=== PATIENT | male | born 1955 | race Caucasian/White ===

== ENCOUNTER → 2017-02-12 | Outpatient (CLI) | payer BC ==
--- NOTE | 2017-02-12 09:49 | XR ---
EXAMINATION TYPE: XR KUB DATE OF EXAM: 02/12/2017 9:38 AM COMPARISON: 02/18/2014 INDICATION: Renal stone, pain when urinating TECHNIQUE: Single view abdomen supine view FINDINGS: There is a nonspecific bowel gas pattern with small bowel gas and colonic bowel gas. No suspicious ma ss effect is evident. Psoas margins are normal. No organomegaly is present. No abnormal calcifications are identified. Renal or ureteral stones are not identified. IMPRESSION: 1. Nonspecific abdomen.
== END | disposition home or self-care (01) ==
LOC: RADXRMAIN 09:22
PROVIDERS: ATTEND Physician Assistant
DX: N20.0 Calculus of kidney (principal)
CPT/HCPCS: 74000

== ENCOUNTER 2017-02-13 19:58 | Emergency (ER) | payer BC ==
[2017-02-13 20:09] VITALS: TEMP 96.8
[2017-02-13] MEDS ORDERED: ONDANSETRON ODT 4 MG TAB PO STA (20:21)
[2017-02-13] MEDS ORDERED: KETOROLAC 30 MG/ML 1 ML VIAL IM STA (20:21)
[2017-02-13] MEDS ORDERED: MORPHINE SULFATE 4 MG/ML SYRINGE IM STA (20:21)
[2017-02-13] MEDS ORDERED: TAMSULOSIN 0.4 MG CAP.ER.24H PO STA (20:22)
--- NOTE | 2017-02-13 20:23 | ED ---
General Adult HPI - General Chief complaint: Urogenital Stated complaint: Poss Kidney Stone Time Seen by Provider: 02/13/17 20:10 Source: patient, RN notes reviewed, old records reviewed Mode of arrival: ambulatory Limitations: no limitations - History of Present Illness Initial comments: 61-year-old male with history of kidney stones presenting for painful urination. Patient states that he began having some dysuria and hematuria yesterday. He did follow-up with the urologist yesterday who did an x-ray any urine. They started on Cipro and Pyridium. States took this medicine that seemed to help until about an hour ago when he urinated he had a sharp pain in his penis. He states that he is still able to urinate. He denies any flank pain associated. He denies any nausea or vomiting. He denies any fevers or chills. He denies any abdominal pain or testicular pain. He is not taking any pain medications. - Related Data Home Medications Medication Instructions Recorded Confirmed Aspirin 325 mg PO DAILY 07/31/16 02/13/17 Clopidogrel Bisulfate [Clopidogrel] 75 mg PO DAILY 07/31/16 02/13/17 Lisinopril [Zestril] 20 mg PO DAILY 09/05/16 02/13/17 Metoprolol Tartrate [Lopressor] 50 mg PO BID 09/05/16 02/13/17 ALPRAZolam [Xanax] 0.25 mg PO HS PRN 02/13/17 02/13/17 Ciprofloxacin HCl [Cipro] 500 mg PO BID 02/13/17 02/13/17 Phenazopyridine [Pyridium] 100 mg PO TID 02/13/17 02/13/17 Vitamin B Complex 1 cap PO DAILY 02/13/17 02/13/17 Previous Rx's Medication Instructions Recorded Atorvastatin [Lipitor] 80 mg PO HS #30 tab 08/02/16 Nitroglycerin Sl Tabs [Nitrostat] 0.4 mg SUBLINGUAL Q5M PRN #20 tab 08/02/16 amLODIPine [Norvasc] 5 mg PO BID #60 tab 08/02/16 Pantoprazole [Protonix] 40 mg PO DAILY #30 tablet.dr 09/09/16 Potassium Chloride ER [K-Dur 10] 5 meq PO DAILY #30 tab.er.prt 09/09/16 HYDROcodone/APAP 5-325MG [[place] 1 tab PO Q6HR PRN #12 tab 02/13/17 5-325] Ibuprofen [Motrin] 600 mg PO Q6HR PRN #24 tab 02/13/17 Ondansetron Odt [Zofran Odt] 4 mg PO Q8HR PRN #12 tab 02/13/17 Tamsulosin HCl [Flomax] 0.4 mg PO DAILY #7 cap.er.24h 02/13/17 Allergies Allergy/AdvReac Type Severity Reaction Status Date / Time No Known Allergies Allergy Verified 02/13/17 20:54 Review of Systems ROS Statement: Those systems with pertinent positive or pertinent negative responses have been documented in the HPI. ROS Other: All systems not noted in ROS Statement are negative. Past Medical History Past Medical History: Coronary Artery Disease (CAD), Chest Pain / Angina, GERD/ Reflux, Hyperlipidemia, Hypertension, Myocardial Infarction ([place]) Additional Past Medical History / Comment(s): retinal bleed rt eye(has sx), kidney stone, 2012 fell, fx L1-NO SX BUT WEARS BRACE Last Myocardial Infarction Date:: -2010 History of Any Multi-Drug Resistant Organisms: None Reported Past Surgical History: Heart Catheterization With Stent Additional Past Surgical History / Comment(s): AGE 4-WAS CROSS EYED-HAD SX, LASER SX FOR RETIANL BLEED, VEIN STRIPPING, CARDIAC STENTS X2, LITHOTRIPSY. Past Anesthesia/Blood Transfusion Reactions: No Reported Reaction Additional Past Anesthesia/Blood Transfusion Reaction / Comment(s): CLAUSTERPHOBIA. Date of Last Stent Placement:: 2010 Past Psychological History: No Psychological Hx Reported Smoking Status: Former smoker Past Alcohol Use History: Rare Additional Past Alcohol Use History / Comment(s): SMOPKED FOR 30 YEARS 1PPD, QUIT 3-2010 Past Drug Use History: None Reported - Past Family History Mother Additional Family Medical History / Comment(s): ASHD- AGE 98 Father Family Medical History: Myocardial Infarction ([place]) Sister(s) Family Medical History: Cancer Additional Family Medical History / Comment(s): COLON/BOWEL CANCER. General Exam - General Exam Comments Initial Comments: General: Awake and Alert. No acute distress. Does not appear acutely ill. Eyes: DANELLE, EOM intact. No nystagmus. No scleral icterus. HENT: Atraumatic, normocephalic. Mucous membranes moist. Trachea midline. Neck: The neck is supple, there is no tenderness or JVD. Cardiovascular: Regular rate and rhythm. No murmur, rub, or gallop is appreciated. Distal pulses intact. Respiratory: Lungs are clear to auscultation bilaterally. No wheezes, rales, rhonchi. No respiratory distress. Gastrointestinal: Soft, Nontender. No rebound or guarding. Non-distended. No masses or organomegaly noted. No CVA tenderness. Musculoskeletal: No tenderness. Normal ROM. No gross deformity. No strength deficits. Neurological: A&Ox3. CN II-XII grossly intact, There are no obvious motor or sensory deficits. Coordination appears grossly intact. Speech is normal. Skin: Skin is warm and dry and no rashes or lesions are noted. Psychiatric: Cooperative, appropriate mood & affect, normal judgment. Limitations: no limitations Course Vital Signs 02/13/17 20:03 Temperature 96.8 F L Pulse Rate 100 Respiratory 16 Rate Blood Pressure 152/73 O2 Sat by Pulse 99 Oximetry Medical Decision Making - Medical Decision Making 61-year-old male presenting for pain in his penis and hematuria. Patient has a history of kidney stones and believes he is passing one currently. He did follow-up urology yesterday and was told this was likely the case. He did have evidence of urinary tract infection that time was started on Cipro and Pyridium. States today the pain in his penis became acutely worse. He has still been able to urinate. Physical exam is grossly unremarkable. I was able to review KUB imaging from yesterday without evidence of large stone present. UA with evidence of mild infection and hematuria consistent with stone. Given his history it is likely that he is currently passing a stone or has passed a stone through his urethra. Discussed obstruction is unlikely as the stone has passed to the urethra and his is still able to urinate. Patient is given pain medication and Flomax in the ED with significant improvement of his symptoms. Given a [place] to take home for further symptom management until he is able to fill prescriptions tomorrow. Discussed close follow-up with PCP and urology. Discussed that I will be working tomorrow and that if he has any significant issues such as inability to urinate or no improvement of pain within 24 hours to return for reevaluation tomorrow. Patient and are agreeable with plan to discharge home. - Lab Data Lab Results 02/13/17 Range/Units 20:35 Urine Color Dark Brown Urine Appearance Clear (Clear) Urine pH 6.0 (5.0-8.0) Ur Specific [place] 1.017 (1.001-1.035) Urine Protein 1+ H (Negative) Urine Glucose (UA) Negative (Negative) Urine Ketones Negative (Negative) Urine Blood Moderate H (Negative) Urine Nitrite Positive (Negative) Urine Bilirubin 1+ H (Negative) Urine Urobilinogen 4.0 (<2.0) mg/dL Ur Leukocyte Esterase Small H (Negative) Urine RBC 137 H (0-5) /hpf Urine WBC 10 H (0-5) /hpf Hyaline Casts 12 H (0-2) /lpf Urine Mucus Rare H (None) /hpf - Radiology Data Radiology results: report reviewed Disposition Clinical Impression: Urethral stone, Hematuria Disposition: HOME SELF-CARE Condition: Stable Instructions: Ureteral Stones (ED), Urinary Tract Infection in Men (ED) Additional Instructions: Please continue taking the Cipro and Phenazopyridine. Prescriptions: HYDROcodone/APAP 5-325MG [[place] 5-325] 1 tab PO Q6HR PRN #12 tab PRN Reason: Pain Ibuprofen [Motrin] 600 mg PO Q6HR PRN #24 tab PRN Reason: Pain Ondansetron Odt [Zofran Odt] 4 mg PO Q8HR PRN #12 tab PRN Reason: Nausea Tamsulosin HCl [Flomax] 0.4 mg PO DAILY #7 cap.er.24h Referrals: Renny Patel MD [Primary Care Provider] - 1-2 days Time of Disposition: 21:24
[2017-02-13 20:46] LABS: Appearance,Urine Clear (Clear); Bilirubin,Urine 1+ (Negative); Glucose,Urine (UA) Negative (Negative); Ketones,Urine Negative (Negative); Leukocyte Esterase,Urine Small (Negative); Mucus,Urine Rare /hpf; Nitrite,Urine Positive (Negative); Particle Count 5820; Protein,Urine 1+ (Negative); RBC,Urine 137 /hpf (0-5); Specific Gravity,Urine 1.017 (1.001-1.035); UA Billing (MACRO vs. MICRO) MICRO; WBC,Urine 10 /hpf (0-5)
[2017-02-13] MEDS ORDERED: HYDROcodone/APAP 5-325MG 1 EACH TAB PO STA (21:18)
[2017-02-13 21:36] VITALS: BP 115/61; PULSE 57; RESP 18
== END 2017-02-13 21:35 | disposition home or self-care (01) ==
LOC: EC 19:58
DX: N21.1 Calculus in urethra (principal); R31.9 Hematuria, unspecified; I25.10 Atherosclerotic heart disease of native coronary artery without angina pectoris; K21.9 Gastro-esophageal reflux disease without esophagitis; E78.5 Hyperlipidemia, unspecified; I10 Essential (primary) hypertension; I25.2 Old myocardial infarction; Z87.891 Personal history of nicotine dependence; Z79.82 Long term (current) use of aspirin; Z79.01 Long term (current) use of anticoagulants; Z79.899 Other long term (current) drug therapy
CPT/HCPCS: 81001; 99283; 96372 ×2; J2270; J1885

== ENCOUNTER 2017-02-20 02:42 | Emergency (ER) | payer BC ==
[2017-02-20 02:48] VITALS: TEMP 98
[2017-02-20] MEDS ORDERED: LIDOCAINE URO-JET JELLY 2% 5 ML KIT URETHRAL ONE (02:59)
--- NOTE | 2017-02-20 03:16 | ED ---
General Adult HPI - General Source: patient, family Mode of arrival: ambulatory Limitations: no limitations <Nelson Olsen - Last Filed: 02/20/17 03:14> <Chidi Boyd - Last Filed: 02/20/17 05:28> - General Chief complaint: Urogenital Stated complaint: Unable to Urinate Time Seen by Provider: 02/20/17 02:51 - History of Present Illness Initial comments: 60-year-old male patient presents emergency department today for complaints of urinary retention. Patient states he has had frequent urination of small amounts for the last day. Feels like he has never completely emptied his bladder in the last 24 hours. Patient states he was seen here on the sixth for what they believe is a kidney stone. He did follow-up with urology who has scheduled a CAT scan for him tomorrow. Patient states he is having suprapubic pressure, feels like yesterday urinate at all times, and is complaining of sharp penile pain. Patient denies any back pain, flank pain, fever, chills, abdominal pain, nausea, or vomiting. Patient states he has had hematuria throughout the last week. Patient denies any other symptoms. (Nelson Olsen) - Related Data Home Medications Medication Instructions Recorded Confirmed Aspirin 325 mg PO DAILY 07/31/16 02/20/17 Clopidogrel Bisulfate [Clopidogrel] 75 mg PO DAILY 07/31/16 02/20/17 Lisinopril [Zestril] 20 mg PO DAILY 09/05/16 02/20/17 Metoprolol Tartrate [Lopressor] 50 mg PO BID 09/05/16 02/20/17 ALPRAZolam [Xanax] 0.25 mg PO HS PRN 02/13/17 02/20/17 Ciprofloxacin HCl [Cipro] 500 mg PO BID 02/13/17 02/20/17 Phenazopyridine [Pyridium] 100 mg PO TID 02/13/17 02/20/17 Vitamin B Complex 1 cap PO DAILY 02/13/17 02/20/17 Previous Rx's Medication Instructions Recorded Atorvastatin [Lipitor] 80 mg PO HS #30 tab 08/02/16 Nitroglycerin Sl Tabs [Nitrostat] 0.4 mg SUBLINGUAL Q5M PRN #20 tab 08/02/16 amLODIPine [Norvasc] 5 mg PO BID #60 tab 08/02/16 Pantoprazole [Protonix] 40 mg PO DAILY #30 tablet.dr 09/09/16 Potassium Chloride ER [K-Dur 10] 5 meq PO DAILY #30 tab.er.prt 09/09/16 HYDROcodone/APAP 5-325MG [[place] 1 tab PO Q6HR PRN #12 tab 02/13/17 5-325] Ibuprofen [Motrin] 600 mg PO Q6HR PRN #24 tab 02/13/17 Ondansetron Odt [Zofran Odt] 4 mg PO Q8HR PRN #12 tab 02/13/17 Tamsulosin HCl [Flomax] 0.4 mg PO DAILY #7 cap.er.24h 02/13/17 Acetaminophen-Codeine 300-30mg 1 tab PO Q4H PRN #16 tablet 02/20/17 [Tylenol w/codeine #3] Allergies Allergy/AdvReac Type Severity Reaction Status Date / Time No Known Allergies Allergy Verified 02/20/17 02:48 Review of Systems ROS Other: All systems not noted in ROS Statement are negative. <Nelson Olsen - Last Filed: 02/20/17 03:14> ROS Other: All systems not noted in ROS Statement are negative. <Chidi Boyd - Last Filed: 02/20/17 05:28> ROS Statement: Those systems with pertinent positive or pertinent negative responses have been documented in the HPI. Past Medical History Past Medical History: Coronary Artery Disease (CAD), Chest Pain / Angina, GERD/ Reflux, Hyperlipidemia, Hypertension, Myocardial Infarction ([place]) Additional Past Medical History / Comment(s): retinal bleed rt eye(has sx), kidney stone, 2012 fell, fx L1-NO SX BUT WEARS BRACE Last Myocardial Infarction Date:: 3-2010 History of Any Multi-Drug Resistant Organisms: None Reported Past Surgical History: Heart Catheterization With Stent Additional Past Surgical History / Comment(s): AGE 4-WAS CROSS EYED-HAD SX, LASER SX FOR RETIANL BLEED, VEIN STRIPPING, CARDIAC STENTS X2, LITHOTRIPSY. Past Anesthesia/Blood Transfusion Reactions: No Reported Reaction Additional Past Anesthesia/Blood Transfusion Reaction / Comment(s): CLAUSTERPHOBIA. Date of Last Stent Placement:: 2010 Past Psychological History: No Psychological Hx Reported Smoking Status: Former smoker Past Alcohol Use History: Rare Additional Past Alcohol Use History / Comment(s): SMOPKED FOR 30 YEARS 1PPD, QUIT -2010 Past Drug Use History: None Reported - Past Family History Mother Additional Family Medical History / Comment(s): ASHD- AGE 98 Father Family Medical History: Myocardial Infarction ([place]) Sister(s) Family Medical History: Cancer Additional Family Medical History / Comment(s): COLON/BOWEL CANCER. <Nelson Olsen - Last Filed: 02/20/17 03:14> General Exam Limitations: no limitations General appearance: alert, in no apparent distress Respiratory exam: Present: normal lung sounds bilaterally. Absent: respiratory distress, wheezes, rales, rhonchi, stridor Cardiovascular Exam: Present: regular rate, normal rhythm, normal heart sounds. Absent: systolic murmur, diastolic murmur, rubs, gallop, clicks GI/Abdominal exam: Present: soft, normal bowel sounds. Absent: distended, tenderness, guarding, rebound, rigid Back exam: Present: normal inspection. Absent: CVA tenderness (R), CVA tenderness (L) Neurological exam: Present: alert, oriented X3, CN II-XII intact Psychiatric exam: Present: normal affect, normal mood Skin exam: Present: warm, dry, intact, normal color. Absent: rash <Nelson Olsen - Last Filed: 02/20/17 03:14> Medical Decision Making - Lab Data Result diagrams: 02/20/17 03:42 02/20/17 03:42 <Chidi Boyd - Last Filed: 02/20/17 05:28> - Lab Data Lab Results 02/20/17 02/20/17 02/20/17 Range/Units 03:42 03:42 03:51 WBC 8.5 (3.8-10.6) k/uL RBC 4.48 (4.30-5.90) m/uL Hgb 14.3 (13.0-17.5) gm/dL Hct 43.3 (39.0-53.0) % MCV 96.7 (80.0-100.0) fL MCH 31.8 (25.0-35.0) pg MCHC 32.9 (31.0-37.0) g/dL RDW 14.1 (11.5-15.5) % Plt Count 238 (150-450) k/uL Neutrophils % 60 % Lymphocytes % 24 % Monocytes % 8 % Eosinophils % 4 % Basophils % 1 % Neutrophils # 5.1 (1.3-7.7) k/uL Lymphocytes # 2.1 (1.0-4.8) k/uL Monocytes # 0.7 (0-1.0) k/uL Eosinophils # 0.4 (0-0.7) k/uL Basophils # 0.1 (0-0.2) k/uL Sodium 139 (137-145) mmol/L Potassium 4.3 (3.5-5.1) mmol/L Chloride 105 (98-107) mmol/L Carbon Dioxide 24 (22-30) mmol/L Anion Gap 10 mmol/L BUN 28 H (9-20) mg/dL Creatinine 1.30 H (0.66-1.25) mg/dL Est GFR (MDRD) Af Amer >60 (>60 ml/min/1.73 sqM) Est GFR (MDRD) Non-Af 56 (>60 ml/min/1.73 sqM) Glucose 104 H (74-99) mg/dL Calcium 9.3 (8.4-10.2) mg/dL Total Bilirubin 0.6 (0.2-1.3) mg/dL AST 23 (17-59) U/L ALT 29 (21-72) U/L Alkaline Phosphatase 67 (38-126) U/L Total Protein 6.9 (6.3-8.2) g/dL Albumin 3.9 (3.5-5.0) g/dL Urine Color Dark Brown Urine Appearance Clear (Clear) Urine pH 5.5 (5.0-8.0) Ur Specific [place] 1.019 (1.001-1.035) Urine Protein 1+ H (Negative) Urine Glucose (UA) Negative (Negative) Urine Ketones Negative (Negative) Urine Blood Large H (Negative) Urine Nitrite Negative (Negative) Urine Bilirubin Negative (Negative) Urine Urobilinogen <2.0 (<2.0) mg/dL Ur Leukocyte Esterase Small H (Negative) Urine RBC >182 H (0-5) /hpf Ur Squamous Epith Cells 1 (0-4) /hpf Disposition <Nelson Olsen - Last Filed: 02/20/17 03:14> <Chidi Boyd - Last Filed: 02/20/17 05:28> Clinical Impression: Urethral stone Disposition: HOME SELF-CARE Condition: Fair Instructions: Urinary Retention in Men (ED) Prescriptions: Acetaminophen-Codeine 300-30mg [Tylenol w/codeine #3] 1 tab PO Q4H PRN #16 tablet PRN Reason: Pain Referrals: Renny Patel MD [Primary Care Provider] - 1-2 days Braulio Brown MD [STAFF PHYSICIAN] - 1-2 days
[2017-02-20] MEDS ORDERED: ONDANSETRON 4 MG/2 ML VIAL IVP STA (03:24)
[2017-02-20] MEDS ORDERED: HYDROmorphone 1 MG/ML 1 ML SYRINGE IVP STA (03:24)
[2017-02-20 03:57] LABS: Basophils # (A) 0.1 k/uL (0-0.2); Basophils % (A) 1 %; CH 32.6; CHCM 33.8; Eosinophils # (A) 0.4 k/uL (0-0.7); Eosinophils % (A) 4 %; HCT 43.3 % (39.0-53.0); HDW 2.39; HGB 14.3 gm/dL (13.0-17.5); Luc # (Auto) 0.25; Luc % (Auto) 3; Lymphocytes # (A) 2.1 k/uL (1.0-4.8); Lymphocytes % (A) 24 %; MCH 31.8 pg (25.0-35.0); MCHC 32.9 g/dL (31.0-37.0); MCV 96.7 fL (80.0-100.0); Mean Platelet Volume 7.3; Monocytes # (A) 0.7 k/uL (0-1.0); Monocytes % (A) 8 %; Neutrophils # (A) 5.1 k/uL (1.3-7.7); Neutrophils % (A) 60 %; RBC 4.48 m/uL (4.30-5.90); RDW 14.1 % (11.5-15.5); WBC 8.5 k/uL (3.8-10.6); WBC (Perox) 8.25
[2017-02-20 04:11] LABS: ALT 29 U/L (21-72); AST 23 U/L (17-59); Alkaline Phosphatase 67 U/L (38-126); Anion Gap 10 mmol/L; Blood Urea Nitrogen 28 mg/dL (9-20); Calcium 9.3 mg/dL (8.4-10.2); Carbon Dioxide 24 mmol/L (22-30); Chloride 105 mmol/L (98-107); Glucose 104 mg/dL (74-99); Non-African American GFR(MDRD) 56 (>60 ml/min/1.73 sqM); Potassium 4.3 mmol/L (3.5-5.1); Sodium 139 mmol/L (137-145); Total Bilirubin 0.6 mg/dL (0.2-1.3); Total Protein 6.9 g/dL (6.3-8.2)
--- NOTE | 2017-02-20 04:22 | CT ---
EXAM: CT Abdomen and Pelvis Without Intravenous Contrast. CLINICAL HISTORY: Reason: Pain TECHNIQUE: Axial computed tomography images of the abdomen and pelvis without intravenous contrast. CTDI is 27.1 mGy and DLP is 1336.4 mGy-cm This CT exam was performed using one or more of the following dose reduction techniques: automated exposure control, adjustment of the mA and/or kV according to patient size, and/or use of iterative reconstruction technique. COMPARISON: CT abdomen-pelvis 09/05/2016 FINDINGS: Lower thorax: Mild left lung base and inferior lingular fibrotic scarring or subsegmental atelectasis. ABDOMEN: Liver: Liver is of normal size without focal hepatic abnormalities. Gallbladder and bile ducts: No radiopaque gallstones or pericholecystic inflammatory changes. Pancreas: Pancreas is unremarkable. No ductal dilation. Spleen: Spleen is unremarkable. Adrenals: No adrenal masses. Kidneys and ureters: No evidence of renal calculi or hydronephrosis. Probable bilateral renal cysts which are unchanged since 09/05/2016. Mild nonspecific bilateral perinephric stranding. Stomach and bowel: No evidence of bowel obstruction. Normal-appearing appendix in the right lower quadrant with no evidence of appendicitis. Scattered colonic diverticulosis without evidence of diverticulitis. Appendix: See above. PELVIS: Bladder: No urinary bladder calculi identified. Previously noted bladder calculus along left side of bladder on CT of 09/05/2016 is no longer identified. There are some prostatic calcifications. There is approximately 1.1 cm ovoid calcification projecting centrally within the inferior aspect of the prostate which was not evident on prior study of 09/05/2016 suggestive of calculus within the prostatic urethra Felix catheter balloon projects in region of posterior penile urethra below level of pubic symphysis. Reproductive: Unremarkable as visualized. ABDOMEN and PELVIS: Intraperitoneal space: Unremarkable. No free air. No significant fluid collection. Bones/joints: Moderate L1 vertebral compression fracture which appears sclerotic which is chronic and unchanged since 09/05/2016. Mild grade 1 L4-L5 anterolisthesis. Vasculature: Abdominal aortic atherosclerotic disease with no evidence of abdominal aortic aneurysm. Lymph nodes: No abnormal masses or lymphadenopathy. No abnormal fluid collections identified. IMPRESSION: Colonic diverticulosis without evidence of diverticulitis. Approximately 1.1 cm calculus projecting centrally within the lower prostate suspicious for a calculus within the prostatic urethra. Felix catheter balloon projects in region of posterior penile urethra below the level of pubic symphysis. Bony findings as described in body of report.
[2017-02-20 04:41] LABS: Appearance,Urine Clear (Clear); Bilirubin,Urine Negative (Negative); Glucose,Urine (UA) Negative (Negative); Ketones,Urine Negative (Negative); Leukocyte Esterase,Urine Small (Negative); Nitrite,Urine Negative (Negative); PH, Urine 5.5 (5.0-8.0); Particle Count 9403; Protein,Urine 1+ (Negative); RBC,Urine >182 /hpf (0-5); Specific Gravity,Urine 1.019 (1.001-1.035); Squamous Epithelial Cell,Urine 1 /hpf (0-4); UA Billing (MACRO vs. MICRO) MICRO; Urobilinogen,Urine <2.0 mg/dL (<2.0)
[2017-02-20 05:34] VITALS: BP 99/54; PULSE 88; RESP 16
== END 2017-02-20 05:34 | disposition home or self-care (01) ==
LOC: EC 02:42
DX: N20.1 Calculus of ureter (principal); R33.9 Retention of urine, unspecified; I10 Essential (primary) hypertension; Z87.891 Personal history of nicotine dependence; Z79.82 Long term (current) use of aspirin; Z79.899 Other long term (current) drug therapy
CPT/HCPCS: 99284; 51702; 96374; 96375; 36415; 80053; 85025; 81001; 87086; 74176; J2405; J1170

== ENCOUNTER → 2017-07-22 | Outpatient (CLI) | payer BC ==
--- NOTE | 2017-07-23 08:54 | CT ---
EXAMINATION TYPE: CT chest w con DATE OF EXAM: 07/22/2017 COMPARISON: CT abdomen and pelvis 02/20/2017 HISTORY: 62-year-old male Abnormal findings on xray. Pulmonary nodule. TECHNIQUE: Contiguous axial scanning of the chest after the administration of 90 mL of Omnipaque 300. Coronal/sagittal reconstructions performed. CT DLP: 597.9mGycm. Automatic exposure control utilized for a dose reduction. FINDINGS: The heart is normal size without pericardial effusion. Coronary vessel calcifications are present and are a marker for coronary artery disease. Ectasia of the ascending aorta at 3.8 cm with mild atherosclerotic arch calcifications. 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 No thoracic lymphadenopathy by CT size criteria. 5 mm anterior right midlung pulmonary nodule axial image 32. 5 mm right upper lobe pulmonary nodule axial image 26. No pleural effusion. Strandy atelectasis or scarring in the inferior lingula, stable from 02/20/2017. Tiny hiatal hernia. Visualized upper abdomen shows low attenuation of the hepatic parenchyma suggest abdiel of hepatic steatosis and a 2.5 cm cyst in the central right liver. Moderate atherosclerotic calci fications in the abdominal aorta. Bones: Bridging anterior endplate spondylosis mid to lower thoracic spine suggestive of DISH. Mild gong perior endplate compression deformity of L1 vertebral body is unchanged from 02/20/2017 compatible wit h a chronic injury. IMPRESSION: 1. CAD and pulmonary arterial hypertension. 2. Ectatic thoracic aorta. 3. A couple 5 mm right-sided pulmonary nodules. A one year follow-up CT can reassess. Stable scarring /atelectasis at the inferior lingula.
== END | disposition home or self-care (01) ==
LOC: RADCTMAIN 19:16
PROVIDERS: ATTEND Family Medicine
DX: I27.2 Other secondary pulmonary hypertension (principal); I25.10 Atherosclerotic heart disease of native coronary artery without angina pectoris; I77.810 Thoracic aortic ectasia; R91.8 Other nonspecific abnormal finding of lung field
CPT/HCPCS: 71260; Q9967

== ENCOUNTER 2018-01-06 14:29 | Emergency (ER) | payer BC ==
[2018-01-06 14:35] VITALS: RESP 18
[2018-01-06] MEDS ORDERED: SODIUM CHLORIDE 0.9% 1,000 ML with MVI, ADULT NO.4 WITH VIT K 10 ML, THIAMINE 100 MG, F... IV ONE ×4 (15:01)
[2018-01-06 15:28] LABS: Basophils # (A) 0.1 k/uL (0-0.2); Basophils % (A) 1 %; Eosinophils # (A) 0.1 k/uL (0-0.7); Eosinophils % (A) 1 %; HCT 43.9 % (39.0-53.0); HGB 14.6 gm/dL (13.0-17.5); Lymphocytes # (A) 1.8 k/uL (1.0-4.8); Lymphocytes % (A) 21 %; MCH 33.8 pg (25.0-35.0); MCHC 33.3 g/dL (31.0-37.0); MCV 101.5 fL (80.0-100.0); Macrocytosis Slight; Mean Platelet Volume 7.7; Monocytes # (A) 0.6 k/uL (0-1.0); Monocytes % (A) 7 %; Neutrophils # (A) 5.8 k/uL (1.3-7.7); Neutrophils % (A) 69 %; Platelet Count 167 k/uL (150-450); RBC 4.32 m/uL (4.30-5.90); RDW 13.2 % (11.5-15.5); WBC 8.5 k/uL (3.8-10.6)
[2018-01-06 15:40] LABS: ALT 81 U/L (21-72); AST 129 U/L (17-59); Alkaline Phosphatase 66 U/L (38-126); Anion Gap 26 mmol/L; Blood Urea Nitrogen 24 mg/dL (9-20); Calcium 8.7 mg/dL (8.4-10.2); Carbon Dioxide 13 mmol/L (22-30); Chloride 106 mmol/L (98-107); Glucose 69 mg/dL (74-99); Magnesium 1.3 mg/dL (1.6-2.3); Potassium 4.3 mmol/L (3.5-5.1); Sodium 145 mmol/L (137-145); Total Bilirubin 0.4 mg/dL (0.2-1.3); Total Protein 6.9 g/dL (6.3-8.2)
[2018-01-06] MEDS ORDERED: SODIUM CHLORIDE 0.9% 1,000 ML IV ONE (16:07)
[2018-01-06] MEDS ORDERED: MAGNESIUM SULFATE-D5W PMX 1 GM in DEXTROSE/WATER 1 100ML.BAG IVPB ONE (16:08)
--- NOTE | 2018-01-06 16:36 | ED ---
General Adult HPI - General Chief complaint: Alcohol Stated complaint: Etoh Time Seen by Provider: 01/06/18 14:30 Source: patient, RN notes reviewed Mode of arrival: ambulatory Limitations: no limitations - History of Present Illness Initial comments: This is a 62-year-old male who presents emergency Department complaining of wanting to detox off of alcohol. Patient states he has no physical complaints today he has no suicidal homicidal ideations. Patient denies any fevers chills cough. Patient denies any chest pain difficult breathing shortest breath. Patient states he is only here to see if he can be detoxed off alcohol. Patient states he stopped drinking approximately 2 hours ago he had no symptoms of withdrawal yet. Patient denies any headache patient denies numbness weakness. - Related Data Home Medications Medication Instructions Recorded Confirmed Aspirin 325 mg PO DAILY 07/31/16 01/06/18 Metoprolol Tartrate [Lopressor] 50 mg PO BID 09/05/16 01/06/18 Phenazopyridine [Pyridium] 100 mg PO TID 02/13/17 01/06/18 Albuterol Inhaler [Ventolin Hfa 1 puff INHALATION RT-Q4H PRN 01/06/18 01/06/18 Inhaler] Lisinopril 40 mg PO DAILY 01/06/18 01/06/18 Tadalafil [Cialis] 10 mg PO DAILY PRN 01/06/18 01/06/18 Thiamine [Vitamin B-1] 100 mg PO BID 01/06/18 01/06/18 amLODIPine [Norvasc] 10 mg PO DAILY 01/06/18 01/06/18 Previous Rx's Medication Instructions Recorded Atorvastatin [Lipitor] 80 mg PO HS #30 tab 08/02/16 Nitroglycerin Sl Tabs [Nitrostat] 0.4 mg SUBLINGUAL Q5M PRN #20 tab 08/02/16 Pantoprazole [Protonix] 40 mg PO DAILY #30 tablet. 09/09/16 Potassium Chloride ER [K-Dur 10] 5 meq PO DAILY #30 tab.er.prt 09/09/16 HYDROcodone/APAP 5-325MG [[place] 1 tab PO Q6HR PRN #12 tab 02/13/17 5-325] Ibuprofen [Motrin] 600 mg PO Q6HR PRN #24 tab 02/13/17 Diazepam [Valium] 10 mg PO Q6H #2 tablet 01/06/18 Allergies Allergy/AdvReac Type Severity Reaction Status Date / Time No Known Allergies Allergy Verified 01/06/18 15:08 Review of Systems ROS Statement: Those systems with pertinent positive or pertinent negative responses have been documented in the HPI. ROS Other: All systems not noted in ROS Statement are negative. Past Medical History Past Medical History: Coronary Artery Disease (CAD), Chest Pain / Angina, GERD/ Reflux, Hyperlipidemia, Hypertension, Myocardial Infarction ([place]) Additional Past Medical History / Comment(s): retinal bleed rt eye(has sx), kidney stone, 2012 fell, fx L1-NO SX BUT WEARS BRACE Last Myocardial Infarction Date:: History of Any Multi-Drug Resistant Organisms: None Reported Past Surgical History: Heart Catheterization With Stent Additional Past Surgical History / Comment(s): AGE 4-WAS CROSS EYED-HAD SX, LASER SX FOR RETIANL BLEED, VEIN STRIPPING, CARDIAC STENTS X2, LITHOTRIPSY. Past Anesthesia/Blood Transfusion Reactions: No Reported Reaction Additional Past Anesthesia/Blood Transfusion Reaction / Comment(s): CLAUSTERPHOBIA. Date of Last Stent Placement:: 2010 Past Psychological History: No Psychological Hx Reported Smoking Status: Former smoker Past Alcohol Use History: Heavy, Rare Past Drug Use History: None Reported - Past Family History Mother Additional Family Medical History / Comment(s): ASHD- AGE 98 Father Family Medical History: Myocardial Infarction ([place]) Sister(s) Family Medical History: Cancer Additional Family Medical History / Comment(s): COLON/BOWEL CANCER. General Exam - General Exam Comments Initial Comments: GENERAL: Patient is well-developed and well-nourished. Patient is nontoxic and well- hydrated and is in no acute distress. Patient does appear intoxicated. ENT: Neck is soft and supple. No significant lymphadenopathy is noted. Oropharynx is clear. Moist mucous membranes. Neck has full range of motion without eliciting any pain. EYES: The sclera were anicteric and conjunctiva were pink and moist. Extraocular movements were intact and pupils were equal round and reactive to light. Eyelids were unremarkable. PULMONARY: Unlabored respirations. Good breath sounds bilaterally. No audible rales rhonchi or wheezing was noted. CARDIOVASCULAR: There is a regular rate and rhythm without any murmurs gallops or rubs. ABDOMEN: Soft and nontender with normal bowel sounds. SKIN: Skin is clear with no lesions or rashes and otherwise unremarkable. NEUROLOGIC: Patient is alert and oriented x3. Cranial nerves II through XII are grossly intact. Motor and sensory are also intact. Normal speech, volume and content. Symmetrical smile. MUSCULOSKELETAL: Normal extremities with adequate strength and full range of motion. LYMPHATICS: No significant lymphadenopathy is noted PSYCHIATRIC: Normal psychiatric evaluation. Normal interpersonal interactions appears functionally intact in deals appropriately with others. Limitations: no limitations Course Vital Signs 01/06/18 01/06/18 14:31 15:15 Temperature 98.0 F Pulse Rate 111 H 79 Respiratory 18 18 Rate Blood Pressure 156/80 128/74 O2 Sat by Pulse 99 99 Oximetry Medical Decision Making - Medical Decision Making Patient stated he was going to go to rehab facility and the daughter was here to take him. - Lab Data Result diagrams: 01/06/18 15:15 01/06/18 15:15 Lab Results 01/06/18 01/06/18 Range/Units 15:15 15:15 WBC 8.5 (3.8-10.6) k/uL RBC 4.32 (4.30-5.90) m/uL Hgb 14.6 (13.0-17.5) gm/dL Hct 43.9 (39.0-53.0) % MCV 101.5 H (80.0-100.0) fL MCH 33.8 (25.0-35.0) pg MCHC 33.3 (31.0-37.0) g/dL RDW 13.2 (11.5-15.5) % Plt Count 167 (150-450) k/uL Neutrophils % 69 % Lymphocytes % 21 % Monocytes % 7 % Eosinophils % 1 % Basophils % 1 % Neutrophils # 5.8 (1.3-7.7) k/uL Lymphocytes # 1.8 (1.0-4.8) k/uL Monocytes # 0.6 (0-1.0) k/uL Eosinophils # 0.1 (0-0.7) k/uL Basophils # 0.1 (0-0.2) k/uL Macrocytosis Slight Sodium 145 (137-145) mmol/L Potassium 4.3 (3.5-5.1) mmol/L Chloride 106 (98-107) mmol/L Carbon Dioxide 13 L (22-30) mmol/L Anion Gap 26 mmol/L BUN 24 H (9-20) mg/dL Creatinine 1.20 (0.66-1.25) mg/dL Est GFR (MDRD) Af Amer >60 (>60 ml/min/1.73 sqM) Est GFR (MDRD) Non-Af >60 (>60 ml/min/1.73 sqM) Glucose 69 L (74-99) mg/dL Calcium 8.7 (8.4-10.2) mg/dL Magnesium 1.3 L (1.6-2.3) mg/dL Total Bilirubin 0.4 (0.2-1.3) mg/dL AST 129 H (17-59) U/L ALT 81 H (21-72) U/L Alkaline Phosphatase 66 (38-126) U/L Total Protein 6.9 (6.3-8.2) g/dL Albumin 4.0 (3.5-5.0) g/dL Disposition Clinical Impression: Alcohol abuse, Hypomagnesemia Disposition: HOME SELF-CARE Condition: Good Instructions: Abuse of Alcohol (ED) Additional Instructions: Patient is to follow-up with her rehab facility as soon as possible Prescriptions: Diazepam [Valium] 10 mg PO Q6H #2 tablet Referrals: Renny Patel MD [Primary Care Provider] - 1-2 days Time of Disposition: 17:48
[2018-01-06] MEDS ORDERED: LORazepam 2 MG/ML INJ IV STA (16:37)
[2018-01-06] MEDS ORDERED: DIAZEPAM 5 MG TAB PO STA (18:04)
[2018-01-06 18:14] VITALS: BP 144/78; PULSE 78; TEMP 98
== END 2018-01-06 18:14 | disposition home or self-care (01) ==
LOC: EC 14:29
DX: F10.10 Alcohol abuse, uncomplicated (principal); E83.42 Hypomagnesemia; I25.10 Atherosclerotic heart disease of native coronary artery without angina pectoris; I10 Essential (primary) hypertension; I25.2 Old myocardial infarction; Z87.891 Personal history of nicotine dependence; Z79.82 Long term (current) use of aspirin; Z79.899 Other long term (current) drug therapy
CPT/HCPCS: 36415; 80053; 83735; 85025; 99284; 96365; 96366; 96368; 96375; J2060; J3411; J3475

== ENCOUNTER 2018-01-08 10:08 | Emergency (ER) | payer BC ==
[2018-01-08 10:16] VITALS: RESP 18
--- NOTE | 2018-01-08 10:34 | ED ---
General Adult HPI - General Chief complaint: Skin/Abscess/Foreign Body Stated complaint: Facial swelling Time Seen by Provider: 01/08/18 10:20 Source: patient, RN notes reviewed Mode of arrival: ambulatory - History of Present Illness Initial comments: 62-year-old male presents to the emergency department with a chief complaint of left-sided facial swelling and blood in the urine. He is recently started on new medication yesterday to help with alcohol symptoms. He woke up this morning with left-sided facial swelling. No pain no tenderness to touch. She denies any dental pain. He denies any fever or chills. Denies any redness to the area. He states that he also noticed some blood in the urine. He states there is no pain with urination no dysuria. They were concerned due to the continued swelling in the new medication so they thought that they should be evaluated. The patient is otherwise having no symptoms. He states that he has not drank for the past few days. Patient denies any recent fever, chills, shortness of breath, chest pain, back pain, abdominal pain, nausea vomiting, numbness or tingling, dysuria , constipation or diarrhea, headaches or visual changes, or any other current symptoms. - Related Data Home Medications Medication Instructions Recorded Confirmed Aspirin 325 mg PO DAILY 07/31/16 01/08/18 Metoprolol Tartrate [Lopressor] 50 mg PO BID 09/05/16 01/08/18 Phenazopyridine [Pyridium] 100 mg PO TID 02/13/17 01/08/18 Albuterol Inhaler [Ventolin Hfa 1 puff INHALATION RT-Q4H PRN 01/06/18 01/08/18 Inhaler] Lisinopril 40 mg PO DAILY 01/06/18 01/08/18 Tadalafil [Cialis] 10 mg PO DAILY PRN 01/06/18 01/08/18 Thiamine [Vitamin B-1] 100 mg PO BID 01/06/18 01/08/18 amLODIPine [Norvasc] 10 mg PO DAILY 01/06/18 01/08/18 chlordiazePOXIDE HCL 25 mg PO DIRECTED 01/08/18 01/08/18 Previous Rx's Medication Instructions Recorded Atorvastatin [Lipitor] 80 mg PO HS #30 tab 08/02/16 Nitroglycerin Sl Tabs [Nitrostat] 0.4 mg SUBLINGUAL Q5M PRN #20 tab 08/02/16 Pantoprazole [Protonix] 40 mg PO DAILY #30 tablet.dr 09/09/16 Potassium Chloride ER [K-Dur 10] 5 meq PO DAILY #30 tab.er.prt 09/09/16 HYDROcodone/APAP 5-325MG [[place] 1 tab PO Q6HR PRN #12 tab 02/13/17 5-325] Ibuprofen [Motrin] 600 mg PO Q6HR PRN #24 tab 02/13/17 Diazepam [Valium] 10 mg PO Q6H #2 tablet 01/06/18 Penicillin V Potassium [Pen Vee K] 500 mg PO QID 7 Days tablet 01/08/18 predniSONE 50 mg PO DAILY #5 tab 01/08/18 Allergies Allergy/AdvReac Type Severity Reaction Status Date / Time No Known Allergies Allergy Verified 01/08/18 10:41 Review of Systems ROS Statement: Those systems with pertinent positive or pertinent negative responses have been documented in the HPI. ROS Other: All systems not noted in ROS Statement are negative. Past Medical History Past Medical History: Coronary Artery Disease (CAD), Chest Pain / Angina, GERD/ Reflux, Hyperlipidemia, Hypertension, Myocardial Infarction ([place]) Additional Past Medical History / Comment(s): retinal bleed rt eye(has sx), kidney stone, 2012 fell, fx L1-NO SX BUT WEARS BRACE Last Myocardial Infarction Date:: History of Any Multi-Drug Resistant Organisms: None Reported Past Surgical History: Heart Catheterization With Stent Additional Past Surgical History / Comment(s): AGE 4-WAS CROSS EYED-HAD SX, LASER SX FOR RETIANL BLEED, VEIN STRIPPING, CARDIAC STENTS X2, LITHOTRIPSY. Past Anesthesia/Blood Transfusion Reactions: No Reported Reaction Additional Past Anesthesia/Blood Transfusion Reaction / Comment(s): CLAUSTERPHOBIA. Date of Last Stent Placement:: 2010 Past Psychological History: No Psychological Hx Reported Smoking Status: Former smoker Past Alcohol Use History: Heavy, Rare Past Drug Use History: None Reported - Past Family History Mother Additional Family Medical History / Comment(s): ASHD- AGE 98 Father Family Medical History: Myocardial Infarction ([place]) Sister(s) Family Medical History: Cancer Additional Family Medical History / Comment(s): COLON/BOWEL CANCER. General Exam - General Exam Comments Initial Comments: General: The patient is awake and alert, in no distress, and does not appear acutely ill. Head: Swelling to the left cheek area. Eye: Pupils are equal, round and reactive to light, extra-ocular movements are intact; there is normal conjunctiva bilaterally. No signs of icterus. Ears, nose, mouth and throat: There are moist mucous membranes and no oral lesions. Neck: The neck is supple, there is no tenderness. Cardiovascular: There is a regular rate and rhythm. No murmur, rub or gallop is appreciated. Respiratory: Lungs are clear to auscultation, respirations are non-labored, breath sounds are equal. No wheezes, stridor, rales, or rhonchi. Gastrointestinal: Soft, non-distended, non-tender abdomen without masses or organomegaly noted. There is no rebound or guarding present. No CVA tenderness. Bowel sounds are unremarkable. Back: There is no tenderness to palpation in the midline. There is no obvious deformity. No rashes noted. Musculoskeletal: Normal ROM, no tenderness, There is no pedal edema. There is no calf tenderness or swelling. Sensation intact. Pulses equal bilaterally 2+. Neurological: CN II-XII intact, There are no obvious motor or sensory deficits. Coordination appears grossly intact. Speech is normal. Skin: Skin is warm and dry and no rashes or lesions are noted. Psychiatric: Cooperative, appropriate mood & affect, normal judgment. Course Vital Signs 01/08/18 10:13 Temperature 98.2 F Pulse Rate 87 Respiratory 18 Rate Blood Pressure 180/97 O2 Sat by Pulse 99 Oximetry Medical Decision Making - Medical Decision Making 62-year-old male presents for facial swelling and hematuria. At this time patient does not appear to have blood in the urine there is some bilirubin which we informed that he needs to follow up with his doctor about this. We discussed the facial swelling could be due to dental however he does not have this time we could be ALLERGIC reaction. He did started her medication but we did discuss other things at [facility] reaction. We will start him on steroids to help with the swelling. We discussed using Benadryl. We discussed return parameters and follow-up and all questions. Patient and family stated they understood and management this plan. All questions have been answered. They will be discharged. - Lab Data Result diagrams: 01/08/18 11:24 01/08/18 11:24 Lab Results 01/08/18 01/08/18 01/08/18 Range/Units 11:24 11:24 11:24 WBC 5.1 (3.8-10.6) k/uL RBC 4.47 (4.30-5.90) m/uL Hgb 15.0 (13.0-17.5) gm/dL Hct 44.5 (39.0-53.0) % MCV 99.4 (80.0-100.0) fL MCH 33.6 (25.0-35.0) pg MCHC 33.8 (31.0-37.0) g/dL RDW 13.1 (11.5-15.5) % Plt Count 130 L (150-450) k/uL Neutrophils % 68 % Lymphocytes % 17 % Monocytes % 7 % Eosinophils % 6 % Basophils % 1 % Neutrophils # 3.5 (1.3-7.7) k/uL Lymphocytes # 0.9 L (1.0-4.8) k/uL Monocytes # 0.3 (0-1.0) k/uL Eosinophils # 0.3 (0-0.7) k/uL Basophils # 0.0 (0-0.2) k/uL Sodium 139 (137-145) mmol/L Potassium 4.3 (3.5-5.1) mmol/L Chloride 101 (98-107) mmol/L Carbon Dioxide 26 (22-30) mmol/L Anion Gap 12 mmol/L BUN 19 (9-20) mg/dL Creatinine 0.95 (0.66-1.25) mg/dL Est GFR (MDRD) Af Amer >60 (>60 ml/min/1.73 sqM) Est GFR (MDRD) Non-Af >60 (>60 ml/min/1.73 sqM) Glucose 91 (74-99) mg/dL Calcium 8.8 (8.4-10.2) mg/dL Total Bilirubin 1.1 (0.2-1.3) mg/dL AST 122 H (17-59) U/L ALT 74 H (21-72) U/L Alkaline Phosphatase 64 (38-126) U/L Total Protein 6.7 (6.3-8.2) g/dL Albumin 3.7 (3.5-5.0) g/dL Urine Color Yellow Urine Appearance Clear (Clear) Urine pH 6.0 (5.0-8.0) Ur Specific [place] 1.020 (1.001-1.035) Urine Protein 2+ H (Negative) Urine Glucose (UA) Negative (Negative) Urine Blood Negative (Negative) Urine Nitrite Negative (Negative) Urine Bilirubin 1+ H (Negative) Urine Urobilinogen 3.0 (<2.0) mg/dL Ur Leukocyte Esterase Negative (Negative) Urine WBC 1 (0-5) /hpf Urine Mucus Rare H (None) /hpf Disposition Clinical Impression: Facial swelling, Bilirubinuria, Allergic reaction Disposition: HOME SELF-CARE Condition: Stable Instructions: Allergies (ED) Additional Instructions: Please use medication as discussed. Please follow up with family doctor if symptoms have not improved over the next two days. Please return to the emergency room if your symptoms increase or worsen or for any other concerns. Prescriptions: Penicillin V Potassium [Pen Vee K] 500 mg PO QID 7 Days tablet predniSONE 50 mg PO DAILY #5 tab Referrals: Renny Patel MD [Primary Care Provider] - 1-2 days Time of Disposition: 12:13
[2018-01-08 11:40] LABS: Basophils % (A) 1 %; Eosinophils # (A) 0.3 k/uL (0-0.7); Eosinophils % (A) 6 %; HCT 44.5 % (39.0-53.0); Lymphocytes # (A) 0.9 k/uL (1.0-4.8); Lymphocytes % (A) 17 %; MCH 33.6 pg (25.0-35.0); MCHC 33.8 g/dL (31.0-37.0); MCV 99.4 fL (80.0-100.0); Mean Platelet Volume 8.1; Monocytes # (A) 0.3 k/uL (0-1.0); Monocytes % (A) 7 %; Neutrophils # (A) 3.5 k/uL (1.3-7.7); Neutrophils % (A) 68 %; Platelet Count 130 k/uL (150-450); RBC 4.47 m/uL (4.30-5.90); RDW 13.1 % (11.5-15.5); WBC 5.1 k/uL (3.8-10.6)
[2018-01-08 11:51] LABS: ALT 74 U/L (21-72); AST 122 U/L (17-59); Albumin 3.7 g/dL (3.5-5.0); Alkaline Phosphatase 64 U/L (38-126); Anion Gap 12 mmol/L; Blood Urea Nitrogen 19 mg/dL (9-20); Calcium 8.8 mg/dL (8.4-10.2); Carbon Dioxide 26 mmol/L (22-30); Chloride 101 mmol/L (98-107); Glucose 91 mg/dL (74-99); Potassium 4.3 mmol/L (3.5-5.1); Sodium 139 mmol/L (137-145); Total Bilirubin 1.1 mg/dL (0.2-1.3); Total Protein 6.7 g/dL (6.3-8.2)
[2018-01-08 11:52] LABS: Appearance,Urine Clear (Clear); Bilirubin,Urine 1+ (Negative); Blood,Urine Negative (Negative); Color,Urine Yellow; Glucose,Urine (UA) Negative (Negative); Ketones,Urine 2+ (Negative); Leukocyte Esterase,Urine Negative (Negative); Mucus,Urine Rare /hpf; Protein,Urine 2+ (Negative); WBC,Urine 1 /hpf (0-5)
[2018-01-08] MEDS ORDERED: methylPREDNISolone SOD SUCCI 125 MG/2 ML VIAL IV STA (12:10)
[2018-01-08 12:53] VITALS: BP 168/98; PULSE 85; TEMP 98
== END 2018-01-08 12:40 | disposition home or self-care (01) ==
LOC: EC 10:08
DX: T78.40XA Allergy, unspecified, initial encounter (principal); R82.2 Biliuria; R22.0 Localized swelling, mass and lump, head; I25.10 Atherosclerotic heart disease of native coronary artery without angina pectoris; I10 Essential (primary) hypertension; I25.2 Old myocardial infarction; Z95.5 Presence of coronary angioplasty implant and graft; Z87.891 Personal history of nicotine dependence; Z79.82 Long term (current) use of aspirin; Z79.899 Other long term (current) drug therapy
CPT/HCPCS: 36415; 80053; 85025; 81001; 87086; 99283; 96374; J2930

== ENCOUNTER 2018-04-15 13:04 | Emergency (ER) | payer BC ==
--- NOTE | 2018-04-15 13:42 | ED ---
General Adult HPI - General Chief complaint: Alcohol Stated complaint: Detox Time Seen by Provider: 04/15/18 13:22 Source: patient, RN notes reviewed Mode of arrival: ambulatory Limitations: no limitations - History of Present Illness Initial comments: Patient 62-year-old male presented to the emergency room today with chief complaint of wanting to detox from alcohol. Patient does admit that he recently began drinking again just 3 days ago. States he was drinking whiskey. Patient states last drink was approximately 3 hours ago. Patient is here with friends. Patient states he wants help to get clean again. He states has no intentions of hurting himself or others. He states he did have absolute vomiting this morning but is not feeling nauseous at this time. Patient denies any pain. He denies any other complaints or symptoms. Patient denies any recent fever, chills, shortness of breath, chest pain, back pain, abdominal pain , numbness or tingling, dysuria or hematuria, constipation or diarrhea, headaches or visual changes, or any other complaints. - Related Data Home Medications Medication Instructions Recorded Confirmed Aspirin 325 mg PO DAILY 07/31/16 04/15/18 Metoprolol Tartrate [Lopressor] 50 mg PO BID 09/05/16 04/15/18 Thiamine [Vitamin B-1] 100 mg PO BID 01/06/18 04/15/18 Clopidogrel [Plavix] 75 mg PO DAILY 04/15/18 04/15/18 Lisinopril [Zestril] 20 mg PO BID 04/15/18 04/15/18 amLODIPine [Norvasc] 5 mg PO BID 04/15/18 04/15/18 Previous Rx's Medication Instructions Recorded Atorvastatin [Lipitor] 80 mg PO HS #30 tab 08/02/16 Pantoprazole [Protonix] 40 mg PO DAILY #30 tablet.dr 09/09/16 Potassium Chloride ER [K-Dur 10] 5 meq PO DAILY #30 tab.er.prt 09/09/16 Ondansetron Odt [Zofran ODT] 4 mg PO Q8HR PRN #20 tab 04/15/18 chlordiazePOXIDE HCl [Librium] 25 mg PO DIRECTED #22 capsule 04/15/18 cloNIDine HCL [Catapres] 0.1 mg PO BID #6 tab 04/15/18 Allergies Allergy/AdvReac Type Severity Reaction Status Date / Time No Known Allergies Allergy Verified 04/15/18 13:34 Review of Systems ROS Statement: Those systems with pertinent positive or pertinent negative responses have been documented in the HPI. ROS Other: All systems not noted in ROS Statement are negative. Past Medical History Past Medical History: Coronary Artery Disease (CAD), Chest Pain / Angina, GERD/ Reflux, Hyperlipidemia, Hypertension, Myocardial Infarction ([place]) Additional Past Medical History / Comment(s): retinal bleed rt eye(has sx), kidney stone, 2012 fell, fx L1-NO SX BUT WEARS BRACE Last Myocardial Infarction Date:: History of Any Multi-Drug Resistant Organisms: None Reported Past Surgical History: Heart Catheterization With Stent Additional Past Surgical History / Comment(s): AGE 4-WAS CROSS EYED-HAD SX, LASER SX FOR RETIANL BLEED, VEIN STRIPPING, CARDIAC STENTS X2, LITHOTRIPSY. Past Anesthesia/Blood Transfusion Reactions: No Reported Reaction Additional Past Anesthesia/Blood Transfusion Reaction / Comment(s): CLAUSTERPHOBIA. Date of Last Stent Placement:: 2010 Past Psychological History: No Psychological Hx Reported Smoking Status: Former smoker Past Alcohol Use History: Abuse, Daily, Heavy Past Drug Use History: None Reported - Past Family History Mother Additional Family Medical History / Comment(s): ASHD- AGE 98 Father Family Medical History: Myocardial Infarction ([place]) Sister(s) Family Medical History: Cancer Additional Family Medical History / Comment(s): COLON/BOWEL CANCER. General Exam - General Exam Comments Initial Comments: General: The patient is awake and alert, in no distress, and does not appear acutely ill. Eye: Pupils are equal, round and reactive to light, extra-ocular movements are intact. No nystagmus. There is normal conjunctiva bilaterally. No signs of icterus. Ears, nose, mouth and throat: There are moist mucous membranes and no oral lesions. Neck: The neck is supple, there is no tenderness or JVD. Cardiovascular: There is a regular rate and rhythm. No murmur, rub or gallop is appreciated. Respiratory: Lungs are clear to auscultation, respirations are non-labored, breath sounds are equal. No wheezes, stridor, rales, or rhonchi. Gastrointestinal: Soft, non-distended, non-tender abdomen without masses or organomegaly noted. There is no rebound or guarding present. No CVA tenderness. Bowel sounds are unremarkable. Musculoskeletal: Normal ROM, no tenderness. Strength 5/5. Sensation intact. Pulses equal bilaterally 2+. Neurological: A&O x 3. CN II-XII intact, There are no obvious motor or sensory deficits. Coordination appears grossly intact. Speech is normal. Skin: Skin is warm and dry and no rashes or lesions are noted. Psychiatric: Cooperative, appropriate mood & affect, normal judgment. Limitations: no limitations Course Vital Signs 04/15/18 13:17 Temperature 98.2 F Pulse Rate 88 Respiratory 18 Rate Blood Pressure 104/67 O2 Sat by Pulse 100 Oximetry Medical Decision Making - Medical Decision Making Patient 62 emergency room show no signs of distress. He is resting comfortably. Patient will be given medications of clonidine, Librium, Zofran for withdrawal symptoms advised to follow-up with detox programs. Patient is advised to increase oral fluids. Advised that clonidine a drop his blood pressure. Advised to continue to monitor blood pressure closely and not taken her blood pressure is low.. Patient states understanding and is in agreement with this plan. Disposition Clinical Impression: ETOH abuse Disposition: HOME SELF-CARE Condition: Good Instructions: Alcohol Withdrawal (ED) Prescriptions: chlordiazePOXIDE HCl [Librium] 25 mg PO DIRECTED #22 capsule cloNIDine HCL [Catapres] 0.1 mg PO BID #6 tab Ondansetron Odt [Zofran ODT] 4 mg PO Q8HR PRN #20 tab PRN Reason: Nausea Is patient prescribed a controlled substance at d/c from ED?: No Referrals: Renny Patel MD [Primary Care Provider] - 1-2 days Time of Disposition: 13:37
[2018-04-15 14:25] VITALS: BP 112/56; PULSE 73; RESP 16; TEMP 96.9
== END 2018-04-15 14:30 | disposition home or self-care (01) ==
LOC: EC 13:04
DX: F10.10 Alcohol abuse, uncomplicated (principal); I25.119 Atherosclerotic heart disease of native coronary artery with unspecified angina pectoris; I10 Essential (primary) hypertension; I25.2 Old myocardial infarction; Z87.891 Personal history of nicotine dependence; Z79.01 Long term (current) use of anticoagulants; Z79.82 Long term (current) use of aspirin; Z79.899 Other long term (current) drug therapy; Z95.5 Presence of coronary angioplasty implant and graft
CPT/HCPCS: 99283

== ENCOUNTER → 2018-06-09 | Outpatient (CLI) | payer BC, MEDICARE ==
[2018-06-09 15:28] LABS: Basophils # (A) 0.1 k/uL (0-0.2); Basophils % (A) 1 %; Eosinophils # (A) 0.1 k/uL (0-0.7); Eosinophils % (A) 1 %; HCT 45.3 % (39.0-53.0); HGB 14.9 gm/dL (13.0-17.5); Lymphocytes # (A) 2.3 k/uL (1.0-4.8); Lymphocytes % (A) 24 %; MCH 30.7 pg (25.0-35.0); MCV 93.1 fL (80.0-100.0); Mean Platelet Volume 7.2; Monocytes # (A) 0.5 k/uL (0-1.0); Monocytes % (A) 5 %; Neutrophils # (A) 6.2 k/uL (1.3-7.7); Neutrophils % (A) 67 %; Platelet Count 285 k/uL (150-450); RBC 4.86 m/uL (4.30-5.90); RDW 13.6 % (11.5-15.5); WBC 9.3 k/uL (3.8-10.6)
[2018-06-09 15:39] LABS: Calcium 9.5 mg/dL (8.4-10.2); Potassium 4.6 mmol/L (3.5-5.1); Total Bilirubin 0.5 mg/dL (0.2-1.3); Total Protein 6.6 g/dL (6.3-8.2)
== END | disposition home or self-care (01) ==
LOC: LABWHC1 14:27
PROVIDERS: ATTEND Family Medicine
DX: E78.5 Hyperlipidemia, unspecified (principal); I10 Essential (primary) hypertension; Z79.899 Other long term (current) drug therapy
CPT/HCPCS: 36415; 80053; 85025

== ENCOUNTER → 2018-07-10 | Outpatient (CLI) | payer MEDICARE, BC ==
--- NOTE | 2018-07-10 15:21 | US ---
EXAMINATION TYPE: US kidneys/renal and bladder DATE OF EXAM: 07/10/2018 COMPARISON: CT CLINICAL HISTORY: 63-year-old male R35.0 Frequency of micturition TECHNIQUE: Multiple sonographic images of the kidneys and bladder are obtained. FINDINGS: EXAM MEASUREMENTS: Right Kidney: 10.8 x 5.1 x 5.4 cm Left Kidney: 11.8 x 6.1 x 5.3 cm Right Kidney: No hydronephrosis. There is a central simple cyst visualized measuring 2.4 x 2.2 x 2.5 cm Left Kidney: No hydronephrosis. Poor distention of the bladder limits its evaluation. IMPRESSION: No hydronephrosis. A 2.5 cm simple cyst incidentally seen in the central right kidney.
== END | disposition home or self-care (01) ==
LOC: RADUSWWP 10:45
PROVIDERS: ATTEND Family Medicine
DX: N28.1 Cyst of kidney, acquired (principal)
CPT/HCPCS: 76770

== ENCOUNTER → 2019-08-24 | Outpatient (CLI) | payer MEDICARE, BC ==
--- NOTE | 2019-08-24 20:56 | CTL ---
EXAMINATION TYPE: CT Low Dose Lung DATE OF EXAM ORDERED: 08/24/2019 HISTORY: Personal history tobacco use. Lung cancer screening CT DLP: 137.[address] CTDI: 3.8 mGy Automated exposure control for dose reduction was used. SCREENING VISIT: COMPARISON: CT chest 07/22/2017 TECHNIQUE: Low dose computed tomography scan was performed through the chest at 1 mm thick sections a nd reconstructed images in the coronal plane at [address] DIAGNOSTIC QUALITY: Satisfactory FINDINGS: LUNG NODULES: Small subpleural right upper lobe nodule, right middle lobe nodule are stable. No addit ional lung nodules are evident. LUNGS: COPD: Severity: Mild Fibrosis: Severity: None Lymph nodes: None Other findings: No RIGHT PLEURAL SPACE: Effusion: None Calcification: None Thickening: None Pneumothorax: Not present LEFT PLEURAL SPACE: Effusion: None Calcification: None Thickening: None Pneumothorax: Not present HEART: Heart Size: Small Coronary calcification: Three-vessel marked calcification Pericardial effusion: None OTHER FINDINGS: Upper abdomen: There is a small hiatal hernia. Bony thorax: There is multilevel thoracic spondylosis, anterior flowing osteophytes with preservation of disc space, consider diffuse idiopathic skeletal hyperostosis Supraclavicular region: Unremarkable Other: Pulmonary artery somewhat prominent, correlate for pulmonary artery hypertension IMPRESSION: Benign FOLLOW UP CT CHEST RECOMMENDATION: [address] LUNG RAD: 2
== END | disposition home or self-care (01) ==
LOC: RADCTMAIN 16:05
PROVIDERS: ATTEND Family Medicine
DX: Z12.2 Encounter for screening for malignant neoplasm of respiratory organs (principal); Z87.891 Personal history of nicotine dependence

== ENCOUNTER → 2020-09-06 | Outpatient (CLI) | payer MEDICARE, BC ==
--- NOTE | 2020-09-06 16:15 | CTL ---
EXAMINATION TYPE: CT Low Dose Lung DATE OF EXAM ORDERED: 09/06/2020 HISTORY: nursing home tobacco use. Lung cancer screening CT DLP: [address] CTDI: 2.6 mGy Automated exposure control for dose reduction was used. SCREENING VISIT: First after baseline COMPARISON: CT August 24, 2019. Older CT July 22, 2017 TECHNIQUE: Low dose computed tomography scan was performed through the chest at 1 mm thick sections a nd reconstructed images in the coronal plane at [address] DIAGNOSTIC QUALITY: Limited, but interpretable Degraded by patient's large body habitus. More artifact noted on current study versus prior study jade ecially 1 mm cuts which are almost nondiagnostic. Diminished radiation dose noted. FINDINGS: LUNG NODULES: Present, detailed below: Stable 5 x 3 mm anterior right upper lung nodule axial image 136 unchanged from 2017 study. Stable 5 x 4 mm subpleural nodule right midlung anteriorly axial image 166 from 2017. Stable 3 mm calcified nodule axial image 140 from prior study image 127. No definitive new or enlarging greater than 4 mm nodules LUNGS: COPD: Severity: Mild to moderate Fibrosis: Severity: Mild Lymph nodes: No greater than 1 cm Other findings: None BILATERAL PLEURAL SPACE: Effusion: None Calcification: None Thickening: None Pneumothorax: None HEART: Heart Size: Normal Coronary calcification: Moderate to severe Pericardial effusion: None OTHER FINDINGS: Upper abdomen: Artifact degradation Bony thorax: Moderate to severe multilevel anterior spurring Supraclavicular region: None. Other: None. IMPRESSION: Suboptimal study, no new or enlarging nodules. FOLLOW UP CT CHEST RECOMMENDATION: Annual low-dose lung screening CT CT LUNG RAD: Lung-Rad 2 Benign Appearance or Behavior
== END | disposition home or self-care (01) ==
LOC: RADCTMAIN 15:14
PROVIDERS: ATTEND Family Medicine
DX: Z12.2 Encounter for screening for malignant neoplasm of respiratory organs (principal); Z87.891 Personal history of nicotine dependence

== ENCOUNTER 2022-02-05 05:54 | Day surgery (SDC) | payer MEDICARE, BC ==
[2022-01-31 15:00] VITALS: BMI 34.5
[2022-02-05] MEDS ORDERED: LACTATED RINGERS 1,000 ML IV SCH (05:57)
[2022-02-05 06:25] VITALS: TEMP 97.7
[2022-02-05] MEDS ORDERED: LIDOCAINE 1% (10MG/ML) FOR IV START INTRADERMA ONE (06:30)
[2022-02-05] MEDS ORDERED: PROPOFOL 10 MG/ML 20 ML VIAL IV ONE (07:08)
[2022-02-05] MEDS ORDERED: LIDOCAINE 1% INJ 10MG/ML (20 ML MDV) ONE (07:08)
--- NOTE | 2022-02-05 07:34 | P.PCN ---
Date of Procedure: 02/05/22 Procedure(s) Performed: Brief history: Patient is a pleasant 66-year-old white male scheduled for an elective upper endoscopy as well as colonoscopy as a part of evaluation of GERD/screening for colon cancer and family history of colon cancer diagnosed in his sister at age 50 Procedure performed: Esophagogastroduodenoscopy with biopsy Colonoscopy snare polypectomy Preoperative diagnosis: GERD Screening for colon cancer and family history of colon cancer Anesthesia: MAC Procedure: After informed consent was obtained from the patient was brought into the endoscopy unit and IV sedation was administered by anesthesia under continuous monitoring. Initially upper endoscopy was done. The Olympus GF 160 video endoscope was inserted inserted into the mouth and esophagus intubated without any difficulty and was gradually advanced into the stomach and duodenum and carefully examined. The bulb and second part of the duodenum appeared normal. The scope was then withdrawn into the stomach adequately insufflated with air and upon careful examination the antrum had mild gastritis and biopsies were done from this area. The body, cardia and fundus appeared normal. The scope was then withdrawn into the esophagus. The GE junction was located at 40 cm to the incisors. small sliding type hiatal hernia noted. It appeared regular with no erythema erosions or ulcerations. Rest of the esophagus appeared normal. Patient tolerated the procedure well. At this time the patient continued to remain sedation. Initial digital rectal examination was normal. Olympus CF 160 video colonoscope was then inserted into the rectum and gradually advanced to the cecum without any difficulty. Careful examination was performed as the scope was gradually being withdrawn. The prep was excellent. The cecum, ascending colon normal. In the ascending colon there was a 7 mm polyp removed by snare polypectomy. Hepatic flexure there were 4 polyps measuring between 5-6 cm in size is post polypectomy. In the transverse colon there were 3 polyps measuring between 3-5 mm in size removed by snare polypectomy and the sigmoid colon there was a 4 mm polyp removed by snare polypectomy. Rest of the , transverse colon, descending colon, sigmoid colon and rectum appeared normal. Retroflexion was performed in the rectum and no lesions were noted. Patient tolerated the procedure well. Impression: 1. Upper endoscopy revealed small hiatal hernia and mild antral gastritis 2. Colonoscopy revealed : a) 7 mm ascending colon polyp status post polypectomy b) 4 polyps in the hepatic flexure measuring 5-6 mm in size is post polypectomy c) 3 polyps in the transverse colon measuring between 3-5 mm in size status post snare polypectomy d) 4 mm sigmoid polyp status post polypectomy Recommendations: Findings of this examination were discussed with the patient as well as his family. He was advised to follow with the biopsy results. He can have a repeat screening colonoscopy in 3 years because of of polyps and family history of colon cancer.
[2022-02-05] MEDS ORDERED: IV FLUID CONTINUATION 300 ML IV ONE (07:36)
[2022-02-05 07:56] VITALS: BP 117/57; PULSE 52; RESP 20
== END 2022-02-05 08:43 | disposition home or self-care (01) ==
LOC: ORWHC2ENDO 05:54
PROVIDERS: ATTEND Internal Medicine Gastroenterology
DX: D12.2 Benign neoplasm of ascending colon (principal); D12.3 Benign neoplasm of transverse colon; D12.5 Benign neoplasm of sigmoid colon; Z80.0 Family history of malignant neoplasm of digestive organs; K29.50 Unspecified chronic gastritis without bleeding; K21.9 Gastro-esophageal reflux disease without esophagitis; K44.9 Diaphragmatic hernia without obstruction or gangrene
CPT/HCPCS: 45385; 43239; 88305; J2001; J2704

== ENCOUNTER 2023-07-06 17:19 | Inpatient (IN) | payer MEDICARE ==
[2023-07-06] MEDS ORDERED: SODIUM CHLORIDE 0.9% 1,000 ML IV STA ×2 (17:32→22:38)
[2023-07-06] MEDS ORDERED: ONDANSETRON 4 MG/2 ML VIAL IVP STA (17:49)
[2023-07-06] MEDS ORDERED: LORazepam 2 MG/ML INJ IV STA ×3 (17:49→22:58)
--- NOTE | 2023-07-06 17:51 | ED ---
Alcohol HPI - General Chief Complaint: Alcohol Stated Complaint: ALCOHOLIC NEEDS HELP Source: patient Mode of arrival: ambulatory Limitations: no limitations - History of Present Illness Initial Comments: 68-year-old male with a past medical history significant for alcohol abuse p resents to ED with a chief of alcohol detox. Patient states is an alcoholic. Previously quits and had a three-year period of abstinence however states he relapsed for the past year. States during his past year has been drinking a fifth of liquor every day with his last drink@10 PM last night. States that he wants to quit drinking. Now notes tremulousness of his hands and nausea. Denies headache, paresthesias, anxiety, auditory, or visual hallucinations. Denies history of seizures due to alcohol withdrawal. Denies suicidal or homicidal ideation. No other complaints. - Related Data Home Medications Medication Instructions Recorded Confirmed Aspirin 325 mg PO DAILY 07/31/16 07/06/23 Metoprolol Tartrate [Lopressor] 50 mg PO HS 09/05/16 07/06/23 amLODIPine [Norvasc] 5 mg PO DIRECTED 04/15/18 07/06/23 lisinopriL [Zestril] 5 mg PO DAILY 04/15/18 07/06/23 Atorvastatin [Lipitor] 80 mg PO DIRECTED 01/31/22 07/06/23 Dutasteride [Avodart] 0.5 mg PO DAILY 01/31/22 07/06/23 Solifenacin Succinate [Vesicare] 10 mg PO HS 01/31/22 07/06/23 Tamsulosin HCl [Flomax] 0.4 mg PO BID 01/31/22 07/06/23 Naltrexone HCl [Revia] 50 mg PO DIRECTED 07/06/23 07/06/23 Pantoprazole [Protonix] 40 mg PO HS 07/06/23 07/06/23 Potassium Chloride ER [K-Dur 10] 10 meq PO DAILY 07/06/23 07/06/23 Allergies Allergy/AdvReac Type Severity Reaction Status Date / Time No Known Allergies Allergy Verified 07/06/23 19:36 Review of Systems ROS Statement: Those systems with pertinent positive or pertinent negative responses have been documented in the HPI. ROS Other: All systems not noted in ROS Statement are negative. Past Medical History Past Medical History: Coronary Artery Disease (CAD), Chest Pain / Angina, GERD/Reflux, Hyperlipidemia, Hypertension, Myocardial Infarction (CT) Additional Past Medical History / Comment(s): Hx retinal bleed rt eye (has sx), kidney stone, has freq urination. 2012 fell, fx L1 - chronic back pain. Last Myocardial Infarction Date:: History of Any Multi-Drug Resistant Organisms: None Reported Past Surgical History: Heart Catheterization With Stent Additional Past Surgical History / Comment(s): Age 4 - surgery for cross eyes, Laser SX for Retinal bleed, Vein stripping, Cardiac stents X2, Lithotripsy x2, Colonoscopy, EGD Past Anesthesia/Blood Transfusion Reactions: No Reported Reaction Additional Past Anesthesia/Blood Transfusion Reaction / Comment(s): (Claustrophobia w/ MRI) Date of Last Stent Placement:: 2010 Past Psychological History: No Psychological Hx Reported Smoking Status: Former smoker Past Alcohol Use History: Abuse, Daily, Heavy Past Drug Use History: None Reported - Past Family History Mother Additional Family Medical History / Comment(s): ASHD- AGE 98 Father Family Medical History: Myocardial Infarction (CT) Sister(s) Family Medical History: Cancer Additional Family Medical History / Comment(s): COLON/BOWEL CANCER. General Exam Limitations: no limitations General appearance: alert, in no apparent distress Neck exam: Present: normal inspection Respiratory exam: Present: normal lung sounds bilaterally Cardiovascular Exam: Present: regular rate, normal rhythm Extremities exam: Present: other (Tremulous hands.) Neurological exam: Present: alert, oriented X3 Skin exam: Present: warm, dry Course Vital Signs 07/06/23 07/06/23 07/06/23 17:22 18:03 21:40 Temperature 97.4 F L Pulse Rate 104 H 83 71 Respiratory 22 18 18 Rate Blood Pressure 142/79 118/65 120/64 O2 Sat by Pulse 100 99 98 Oximetry Medical Decision Making - Medical Decision Making Was pt. sent in by a medical professional or institution (, PA, AUTO REFINISHER, urgent care, hospital, or prison...) When possible be specific @ -No Did you speak to anyone other than the patient for history (EMS, parent, family, police, friend...)? What history was obtained from this source @ -No Did you review nursing and triage notes (agree or disagree)? Why? @ -I reviewed and agree with nursing and triage notes Were old charts reviewed (outside hosp., previous admission, EMS record, old EKG, old radiological studies, urgent care reports/EKG's, prison records)? Report findings @ -No old charts were reviewed Differential Diagnosis (chest pain, altered mental status, abdominal pain women, abdominal pain men, vaginal bleeding, weakness, fever, dyspnea, syncope, headache, dizziness, GI bleed, back pain, seizure, CVA, palpatations, mental health, musculoskeletal)? @ -Delirium tremens, seizure. This is not meant to be an all-inclusive list. EKG interpreted by me (3pts min.). @ -As above X-rays interpreted by me (1pt min.). @ -None done CT interpreted by me (1pt min.). @ -CT of the abdomen/pelvis shows no acute findings. U/S interpreted by me (1pt. min.). @ -None done What testing was considered but not performed or refused? (CT, X-rays, U/S, labs)? Why? @ -None What meds were considered but not given or refused? Why? @ -None Did you discuss the management of the patient with other professionals (professionals i.e. , PA, AUTO REFINISHER, lab, RT, psych nurse, pediatric social worker, barrel roller operator, teacher, plant protection officer, shoe parts caser)? Give summary @ -Spoke to Dr. Claire, who advised obtaining a CT abdomen/pelvis Was smoking cessation discussed for >3mins.? @ -No Was critical care preformed (if so, how long)? @ -No Were there social determinants of health that impacted care today? How? (Homelessness, low income, unemployed, alcoholism, drug addiction, transportation, low edu. Level, literacy, decrease access to med. care, alf, rehab)? @ -No Was there de-escalation of care discussed even if they declined (Discuss DNR or withdrawal of care, Hospice)? DNR status @ -No What co-morbidities impacted this encounter? (DM, HTN, Smoking, COPD, CAD, Cancer, CVA, ARF, Chemo, Hep., AIDS, mental health diagnosis, sleep apnea, morbid obesity)? @ -None Was patient admitted / discharged? Hospital course, mention meds given and route, prescriptions, significant lab abnormalities, going to OR and other pertinent info. @ -Admission. Regalado studies significant for an anion gap acidosis with chloride low at 95, CO2 low at 9, anion gap 30. Acute kidney injury. BUN at 27 and creatinine 1.3. Elevated liver enzymes with AST 140, ALT 63. Urine shows 3+ ketones. Alcohol 143. Patient will be admitted for continued hydration with bicarb drip as advised by Dr. Claire under [facility]. Drug Therapy requiring intensive monitoring for toxicity (Heparin, Nitro, Insulin, Cardizem)? @ -No Were any procedures done? @ -No Diagnosis/symptom? @ -Alcohol withdrawal Acute, or Chronic, or Acute on Chronic? @ -Acute Uncomplicated (without systemic symptoms) or Complicated (systemic symptoms)? @ -Uncomplicated Side effects of treatment? @ -No Exacerbation, Progression, or Severe Exacerbation? @ -No Poses a threat to life or bodily function? How? (Chest pain, USA, CT, pneumonia, PE, COPD, DKA, ARF, appy, cholecystitis, CVA, Diverticulitis, Homicidal, Suicidal, threat to staff... and all critical care pts) @ -Yes, delirium tremens. - Lab Data Result diagrams: 07/06/23 17:37 07/06/23 17:37 Lab Results 07/06/23 07/06/23 07/06/23 Range/Units 17:37 17:37 17:37 WBC 7.8 (3.8-10.6) k/uL RBC 3.87 L (4.30-5.90) m/uL Hgb 13.8 (13.0-17.5) gm/dL Hct 42.4 (39.0-53.0) % MCV 109.3 H (80.0-100.0) fL MCH 35.7 H (25.0-35.0) pg MCHC 32.6 (31.0-37.0) g/dL RDW 13.5 (11.5-15.5) % Plt Count 120 L (150-450) k/uL MPV 8.5 Neutrophils % 80 % Lymphocytes % 11 % Monocytes % 7 % Eosinophils % 1 % Basophils % 0 % Neutrophils # 6.2 (1.3-7.7) k/uL Lymphocytes # 0.9 L (1.0-4.8) k/uL Monocytes # 0.5 (0-1.0) k/uL Eosinophils # 0.1 (0-0.7) k/uL Basophils # 0.0 (0-0.2) k/uL Manual Slide Review Performed Macrocytosis Marked A VBG pH (7.31-7.41) VBG pCO2 (37-51) mmHg VBG HCO3 (24-28) mmol/L Sodium 134 L (137-145) mmol/L Potassium 5.1 (3.5-5.1) mmol/L Chloride 95 L (98-107) mmol/L Carbon Dioxide 9 L* (22-30) mmol/L Anion Gap 30 mmol/L BUN 27 H (9-20) mg/dL Creatinine 1.30 H (0.66-1.25) mg/dL Est GFR (CKD-EPI)AfAm 64 (>60 ml/min/1.73 sqM) Est GFR (CKD-EPI)NonAf 55 (>60 ml/min/1.73 sqM) Glucose 64 L (74-99) mg/dL Plasma Lactic Acid Omar (0.7-2.0) mmol/L Calcium 8.5 (8.4-10.2) mg/dL Total Bilirubin 1.4 H (0.2-1.3) mg/dL AST 140 H (17-59) U/L ALT 63 H (4-49) U/L Alkaline Phosphatase 63 (38-126) U/L Ammonia (<30) umol/L Total Protein 7.5 (6.3-8.2) g/dL Albumin 4.5 (3.5-5.0) g/dL Urine Color Yellow Urine Appearance Clear (Clear) Urine pH 5.5 (5.0-8.0) Ur Specific [place] 1.022 (1.001-1.035) Urine Protein 1+ H (Negative) Urine Glucose (UA) Negative (Negative) Urine Ketones 3+ H (Negative) Urine Blood Small H (Negative) Urine Nitrite Negative (Negative) Urine Bilirubin Negative (Negative) Urine Urobilinogen <2.0 (<2.0) mg/dL Ur Leukocyte Esterase Negative (Negative) Urine RBC <1 (0-5) /hpf Urine WBC 2 (0-5) /hpf Ur Squamous Epith Cells <1 (0-4) /hpf Urine Bacteria Rare H (None) /hpf Hyaline Casts 10 H (0-2) /lpf Urine Mucus Rare H (None) /hpf Serum Alcohol 148 mg/dL 07/06/23 07/06/23 Range/Units 21:30 21:30 WBC (3.8-10.6) k/uL RBC (4.30-5.90) m/uL Hgb (13.0-17.5) gm/dL Hct (39.0-53.0) % MCV (80.0-100.0) fL MCH (25.0-35.0) pg MCHC (31.0-37.0) g/dL RDW (11.5-15.5) % Plt Count (150-450) k/uL MPV Neutrophils % % Lymphocytes % % Monocytes % % Eosinophils % % Basophils % % Neutrophils # (1.3-7.7) k/uL Lymphocytes # (1.0-4.8) k/uL Monocytes # (0-1.0) k/uL Eosinophils # (0-0.7) k/uL Basophils # (0-0.2) k/uL Manual Slide Review Macrocytosis VBG pH 7.24 L (7.31-7.41) VBG pCO2 32 L (37-51) mmHg VBG HCO3 14 L (24-28) mmol/L Sodium (137-145) mmol/L Potassium (3.5-5.1) mmol/L Chloride (98-107) mmol/L Carbon Dioxide (22-30) mmol/L Anion Gap mmol/L BUN (9-20) mg/dL Creatinine (0.66-1.25) mg/dL Est GFR (CKD-EPI)AfAm (>60 ml/min/1.73 sqM) Est GFR (CKD-EPI)NonAf (>60 ml/min/1.73 sqM) Glucose (74-99) mg/dL Plasma Lactic Acid Omar 4.8 H* (0.7-2.0) mmol/L Calcium (8.4-10.2) mg/dL Total Bilirubin (0.2-1.3) mg/dL AST (17-59) U/L ALT (4-49) U/L Alkaline Phosphatase (38-126) U/L Ammonia <9 (<30) umol/L Total Protein (6.3-8.2) g/dL Albumin (3.5-5.0) g/dL Urine Color Urine Appearance (Clear) Urine pH (5.0-8.0) Ur Specific [place] (1.001-1.035) Urine Protein (Negative) Urine Glucose (UA) (Negative) Urine Ketones (Negative) Urine Blood (Negative) Urine Nitrite (Negative) Urine Bilirubin (Negative) Urine Urobilinogen (<2.0) mg/dL Ur Leukocyte Esterase (Negative) Urine RBC (0-5) /hpf Urine WBC (0-5) /hpf Ur Squamous Epith Cells (0-4) /hpf Urine Bacteria (None) /hpf Hyaline Casts (0-2) /lpf Urine Mucus (None) /hpf Serum Alcohol mg/dL Disposition Clinical Impression: Alcohol withdrawal Disposition: ADMITTED IP TO THIS HOSP Referrals: Chay Claire MD [Primary Care Provider] - 1-2 days Time of Disposition: 22:54
[2023-07-06 17:53] LABS: Basophils % (A) 0 %; Eosinophils # (A) 0.1 k/uL (0-0.7); Eosinophils % (A) 1 %; HCT 42.4 % (39.0-53.0); HGB 13.8 gm/dL (13.0-17.5); Lymphocytes # (A) 0.9 k/uL (1.0-4.8); Lymphocytes % (A) 11 %; MCH 35.7 pg (25.0-35.0); MCHC 32.6 g/dL (31.0-37.0); MCV 109.3 fL (80.0-100.0); Macrocytosis Marked; Mean Platelet Volume 8.5; Monocytes # (A) 0.5 k/uL (0-1.0); Monocytes % (A) 7 %; Neutrophils # (A) 6.2 k/uL (1.3-7.7); Neutrophils % (A) 80 %; Platelet Count 120 k/uL (150-450); RBC 3.87 m/uL (4.30-5.90); RDW 13.5 % (11.5-15.5); WBC 7.8 k/uL (3.8-10.6)
[2023-07-06 18:08] LABS: ALT 63 U/L (4-49); AST 140 U/L (17-59); African American GFR (CKD) 64 (>60 ml/min/1.73 sqM); Albumin 4.5 g/dL (3.5-5.0); Alkaline Phosphatase 63 U/L (38-126); Anion Gap 30 mmol/L; Blood Urea Nitrogen 27 mg/dL (9-20); Calcium 8.5 mg/dL (8.4-10.2); Chloride 95 mmol/L (98-107); Glucose 64 mg/dL (74-99); Non-African American GFR(CKD) 55 (>60 ml/min/1.73 sqM); Potassium 5.1 mmol/L (3.5-5.1); Sodium 134 mmol/L (137-145); Total Bilirubin 1.4 mg/dL (0.2-1.3); Total Protein 7.5 g/dL (6.3-8.2)
[2023-07-06 18:19] LABS: Carbon Dioxide 9 mmol/L (22-30)
[2023-07-06 18:20] LABS: Alcohol 148 mg/dL
[2023-07-06 19:24] LABS: Appearance,Urine Clear (Clear); Bacteria,Urine Rare /hpf; Bilirubin,Urine Negative (Negative); Blood,Urine Small (Negative); Color,Urine Yellow; Glucose,Urine (UA) Negative (Negative); Hyaline Casts,Urine 10 /lpf (0-2); Ketones,Urine 3+ (Negative); Leukocyte Esterase,Urine Negative (Negative); Mucus,Urine Rare /hpf; Nitrite,Urine Negative (Negative); PH, Urine 5.5 (5.0-8.0); Protein,Urine 1+ (Negative); RBC,Urine <1 /hpf (0-5); Specific Gravity,Urine 1.022 (1.001-1.035); Squamous Epithelial Cell,Urine <1 /hpf (0-4); Urobilinogen,Urine <2.0 mg/dL (<2.0); WBC,Urine 2 /hpf (0-5)
[2023-07-06] MEDS ORDERED: amLODIPine 5 MG TAB PO STA (20:05)
[2023-07-06] MEDS ORDERED: METOPROLOL TARTRATE 50 MG TAB PO STA (20:05)
[2023-07-06] MEDS ORDERED: METOCLOPRAMIDE 5 MG/ML 2 ML VIAL IVP STA (20:56)
--- NOTE | 2023-07-06 21:07 | CT ---
EXAMINATION TYPE: CT abdomen pelvis wo con CT DLP: 809 mGycm, Automated exposure control for dose reduction was used. DATE OF EXAM: 07/06/2023 8:31 PM COMPARISON: CT abdomen pelvis most recent from 02/20/2017, CT chest dating back to 07/22/2017 CLINICAL INDICATION:Male, 68 years old with history of abd pain; Abdominal pain TECHNIQUE: Axial CT of the abdomen and pelvis. Sagittal and coronal reformats were created on a [employer] workstation. Contrast used: mL of , (none if empty) Oral contrast used: without Oral Contrast (none if empty) FINDINGS: LOWER CHEST: The heart is mildly enlarged for size. There is aortic valve leaflet calcifications and coronary artery cusp patient's. Soft tissue opacity posterior to the aorta measuring up to 17 mm. ABDOMEN LIVER: Diffusely hypoattenuating parenchyma. GALLBLADDER AND BILE DUCTS: Layering gallstones in the gallbladder lumen. PANCREAS: Unremarkable. SPLEEN: Unremarkable. ADRENAL GLANDS: Unremarkable. KIDNEYS AND URETERS: No evidence of hydronephrosis or renal calculus. The ureters are unremarkable. Bilateral renal cysts. PELVIS BLADDER: Unremarkable REPRODUCTIVE: Unremarkable. ABDOMEN & PELVIS STOMACH AND BOWEL: Small hiatal hernia with fluid in the distal esophagus. No evidence of bowel obstr uction. Feces contained within the appendix. PERITONEUM/RETROPERITONEUM: No evidence of pneumoperitoneum or free fluid. VASCULATURE: Moderate atherosclerotic calcifications are present throughout the abdominal aorta and i ts branches. No evidence of aortic aneurysm. MUSCULOSKELETAL: L1 vertebral body superior endplate has irregular morphology. LYMPH NODES: No gross evidence for lymphadenopathy. SOFT TISSUE/ABDOMINAL WALL: Fat-containing right inguinal hernia. IMPRESSION: 1. No definitive evidence for acute intra-abdominal process. 2. L1 vertebral body superior endplate cortical loss similar dating back to 2016 suggestive of Schmo rl node versus chronic compression fracture. 3. Several soft tissue opacity is in the chest posterior to the aorta measuring up to 17 mm. Continu ed low dose lung cancer screening is recommended in this patient. 4. Marked hepatic steatosis. 5. Cholelithiasis. 6. Colonic diverticulosis. 7. Mild coronary artery atherosclerosis. 8. Mild aortic valve leaflet calcifications. 9. Small hiatal hernia.
[2023-07-06 21:52] LABS: VBG PH 7.24 (7.31-7.41)
[2023-07-06 22:31] LABS: Lactic Acid, Venous 4.8 mmol/L (0.7-2.0)
[2023-07-06] MEDS ORDERED: SODIUM CHLORIDE 0.9% 500 ML 500 ML IV STA (22:38)
[2023-07-06] MEDS ORDERED: DEXTROSE 5%-0.45% NACL 1,000 ML IV ONE (22:39)
[2023-07-06] MEDS ORDERED: HYDROmorphone 1 MG/ML 1 ML SYRINGE IVP PRN (22:54)
[2023-07-06] MEDS ORDERED: IBUPROFEN 400 MG TAB PO PRN (22:54)
[2023-07-06] MEDS ORDERED: HYDROmorphone 0.5 MG/0.5 ML SYRINGE IVP PRN (22:54)
[2023-07-06] MEDS ORDERED: NALOXONE 0.4 MG/ML 1 ML VIAL IV PRN (22:54)
[2023-07-06] MEDS ORDERED: KETOROLAC 15 MG/ML 1 ML VIAL IVP PRN (22:54)
[2023-07-06] MEDS ORDERED: ONDANSETRON 4 MG/2 ML VIAL IVP PRN (22:54)
[2023-07-06] MEDS ORDERED: THIAMINE 100 MG/ML 2 ML VIAL IM STA (22:55)
[2023-07-06] MEDS ORDERED: LORazepam 2 MG/ML INJ IV PRN ×2 (22:55)
[2023-07-06] MEDS ORDERED: DEXTROSE 5% IN WATER 1,000 ML with SODIUM BICARB (1 MEQ/ML) 100 ML IV SCH (23:00)
[2023-07-06 23:41] LABS: Magnesium 1.5 mg/dL (1.6-2.3); Phosphorus 3.8 mg/dL (2.5-4.5)
[2023-07-07] MEDS ORDERED: DEXTROSE 50% SYRINGE 50 ML IVP STA (00:16)
[2023-07-07 00:17] LABS: Glucose,Whole Blood 57 mg/dL (70-110)
[2023-07-07 01:02] LABS: Glucose,Whole Blood 108 mg/dL (70-110)
[2023-07-07] MEDS: LORazepam 2 MG/ML INJ IV PRN ×2 (02:52→06:41)
[2023-07-07 06:44] LABS: Glucose,Whole Blood 110 mg/dL (70-110)
[2023-07-07] MEDS: MAGNESIUM SULFATE-D5W PMX 1 GM in DEXTROSE/WATER 1 100ML.BAG IVPB SCH ×2 (09:24→10:34)
[2023-07-07] MEDS: THIAMINE 100 MG TAB PO SCH (09:24)
[2023-07-07] MEDS: FOLIC ACID 1 MG TAB PO SCH (09:24)
[2023-07-07 10:09] LABS: Basophils % (A) 0 %; Eosinophils # (A) 0.1 k/uL (0-0.7); Eosinophils % (A) 1 %; HCT 35.4 % (39.0-53.0); HGB 12.2 gm/dL (13.0-17.5); Lymphocytes # (A) 0.9 k/uL (1.0-4.8); Lymphocytes % (A) 17 %; MCH 36.8 pg (25.0-35.0); MCHC 34.6 g/dL (31.0-37.0); MCV 106.4 fL (80.0-100.0); Macrocytosis Moderate; Mean Platelet Volume 9.2; Monocytes # (A) 0.3 k/uL (0-1.0); Monocytes % (A) 6 %; Neutrophils # (A) 3.9 k/uL (1.3-7.7); Neutrophils % (A) 73 %; RBC 3.33 m/uL (4.30-5.90); RDW 13.4 % (11.5-15.5); WBC 5.3 k/uL (3.8-10.6)
[2023-07-07 10:18] LABS: ALT 60 U/L (4-49); AST 105 U/L (17-59); African American GFR (CKD) >90 (>60 ml/min/1.73 sqM); Albumin 3.3 g/dL (3.5-5.0); Albumin/Globulin Ratio 1.1; Alkaline Phosphatase 50 U/L (38-126); Anion Gap 12 mmol/L; Blood Urea Nitrogen 26 mg/dL (9-20); Calcium 7.7 mg/dL (8.4-10.2); Carbon Dioxide 22 mmol/L (22-30); Chloride 98 mmol/L (98-107); Globulin 2.9 g/dL; Glucose 103 mg/dL (74-99); Magnesium 1.6 mg/dL (1.6-2.3); Non-African American GFR(CKD) 83 (>60 ml/min/1.73 sqM); Sodium 132 mmol/L (137-145); Total Bilirubin 1.7 mg/dL (0.2-1.3); Total Protein 6.2 g/dL (6.3-8.2)
[2023-07-07 10:55] LABS: Platelet Count 85 k/uL (150-450)
[2023-07-07 10:58] LABS: Toxic Granulation Present
[2023-07-07] MEDS: lisinopriL 5 MG TAB PO SCH (12:06)
[2023-07-07] MEDS: ATORVASTATIN 80 MG TAB PO SCH (12:06)
[2023-07-07] MEDS: amLODIPine 5 MG TAB PO SCH (12:06)
[2023-07-07] MEDS: ASPIRIN 325 MG TAB PO SCH (12:06)
[2023-07-07] MEDS: TAMSULOSIN 0.4 MG CAP.ER.24H PO SCH ×2 (12:06→22:13)
[2023-07-07] MEDS: FINASTERIDE 5 MG TAB PO SCH (12:06)
[2023-07-07] MEDS: NALTREXONE HCL 50 MG TAB PO SCH (12:08)
[2023-07-07] MEDS: 1: MVI, ADULT NO.4 WITH VIT K 10 ML, THIAMINE 100 MG, FOLIC ACID 1 MG in SODIUM CHLORIDE IV SCH ×4 (16:48)
[2023-07-07] MEDS ORDERED: METOPROLOL TARTRATE 50 MG TAB PO SCH (21:00)
[2023-07-07] MEDS ORDERED: PANTOPRAZOLE 40 MG TABLET PO SCH (21:00)
[2023-07-07] MEDS ORDERED: MELATONIN 3 MG TABLET PO SCH (22:04)
[2023-07-07] MEDS: TROSPIUM CHLORIDE 20 MG TABLET PO SCH (22:13)
[2023-07-08] MEDS: 1: MVI, ADULT NO.4 WITH VIT K 10 ML, THIAMINE 100 MG, FOLIC ACID 1 MG in SODIUM CHLORIDE IV SCH ×8 (01:47→12:42)
--- NOTE | 2023-07-08 08:23 | P.GSCN ---
History of Present Illness Consult date: 07/08/23 History of present illness: 5-year-old gentleman who came into the hospital because of problems with his alcoholism and his desire to be treated for alcoholic withdrawal. If problems urinating when he initially came in the hospital but has been urinating fine since. We are asked see the patient for urine retention. The patient has seen and Stephanie the past for BPH with obstruction. He has been on tamsulosin and dutasteride. Helps him. Prior to his alcohol withdrawal he was not have any problems urinating. He has not had any blood in the urine. He has not had any infection. He does not have a catheter at this point in time. He is not bothered by the weight urinating in the last 24 hours. Review of Systems All systems: negative - Constitutional Denies fever, Denies weight loss - EENT Eyes: denies blurred vision Ears, nose, mouth and throat: Denies dysphagia - Cardiovascular Denies chest pain, Denies shortness of breath - Respiratory Denies cough, Denies 7 - Gastrointestinal Reports as per HPI - Genitourinary Denies dysuria, Denies hematuria - Integumentary Denies rash, Denies unusual bruising - Neurological Denies headaches, Denies syncope - Hematologic/Lymphatic Denies easy bleeding, Denies easy bruising Past Medical History Past Medical History: Coronary Artery Disease (CAD), Chest Pain / Angina, GERD/Reflux, Hyperlipidemia, Hypertension, Myocardial Infarction (CT) Additional Past Medical History / Comment(s): Hx retinal bleed rt eye (has sx), kidney stone, has freq urination. 2012 fell, fx L1 - chronic back pain. Last Myocardial Infarction Date:: History of Any Multi-Drug Resistant Organisms: None Reported Past Surgical History: Heart Catheterization With Stent Additional Past Surgical History / Comment(s): Age 4 - surgery for cross eyes, Laser SX for Retinal bleed, Vein stripping, Cardiac stents X2, Lithotripsy x2, Colonoscopy, EGD Past Anesthesia/Blood Transfusion Reactions: No Reported Reaction Additional Past Anesthesia/Blood Transfusion Reaction / Comm: (Claustrophobia w/ MRI) Date of Last Stent Placement:: 2010 Past Psychological History: No Psychological Hx Reported Smoking Status: Former smoker Past Alcohol Use History: Abuse, Daily, Heavy Additional Past Alcohol Use History / Comment(s): Smoked for 30 years, 1 1/2 ppd, Quit 3-2010. Quit alcohol 2018. Relapse 2022, stated alcohol use was occuring over past year Past Drug Use History: None Reported - Past Family History Mother Additional Family Medical History / Comment(s): ASHD- AGE 98 Father Family Medical History: Myocardial Infarction (CT) Sister(s) Family Medical History: Cancer Additional Family Medical History / Comment(s): COLON/BOWEL CANCER. Medications and Allergies Home Medications Medication Instructions Recorded Confirmed Type Aspirin 325 mg PO DAILY 07/31/16 07/06/23 History Metoprolol Tartrate [Lopressor] 50 mg PO HS 09/05/16 07/06/23 History amLODIPine [Norvasc] 5 mg PO DAILY 04/15/18 07/07/23 History lisinopriL [Zestril] 5 mg PO DAILY 04/15/18 07/06/23 History Atorvastatin [Lipitor] 80 mg PO DAILY 01/31/22 07/07/23 History Dutasteride [Avodart] 0.5 mg PO DAILY 01/31/22 07/06/23 History Solifenacin Succinate [Vesicare] 10 mg PO HS 01/31/22 07/06/23 History Tamsulosin HCl [Flomax] 0.4 mg PO BID 01/31/22 07/06/23 History Naltrexone HCl [Revia] 50 mg PO DAILY 07/06/23 07/07/23 History Pantoprazole [Protonix] 40 mg PO HS 07/06/23 07/06/23 History Potassium Chloride ER [K-Dur 10] 10 meq PO DAILY 07/06/23 07/06/23 History Allergies Allergy/AdvReac Type Severity Reaction Status Date / Time No Known Allergies Allergy Verified 07/06/23 19:36 Surgical - Exam Vital Signs Temp Pulse Resp BP Pulse Ox 97.4 F L 104 H 22 142/79 100 07/06/23 17:22 07/06/23 17:22 07/06/23 17:22 07/06/23 17:22 07/06/23 17:22 - General well developed, well nourished, no distress - Eyes normal ocular movement, no icteric - ENT no hearing loss, no congestion - Neck no masses, trachea midline - Respiratory normal respiratory effort, clear to auscultation - Abdomen Abdomen: soft, non tender, no guarding, no rigid, no rebound - Integumentary no rash, no abnormal pigmentation - Neurologic no disoriented, no combative - Psychiatric oriented to time, oriented to person, oriented to place, speech is normal, memory intact Results - Labs 07/07/23 09:33 07/07/23 09:33 Abnormal Lab Results - Last 24 Hours (Table) 07/07/23 07/07/23 Range/Units 09:33 09:33 RBC 3.33 L (4.30-5.90) m/uL Hgb 12.2 L (13.0-17.5) gm/dL Hct 35.4 L (39.0-53.0) % MCV 106.4 H (80.0-100.0) fL MCH 36.8 H (25.0-35.0) pg Plt Count 85 L (150-450) k/uL Lymphocytes # 0.9 L (1.0-4.8) k/uL Sodium 132 L (137-145) mmol/L BUN 26 H (9-20) mg/dL Glucose 103 H (74-99) mg/dL Calcium 7.7 L (8.4-10.2) mg/dL Total Bilirubin 1.7 H (0.2-1.3) mg/dL AST 105 H (17-59) U/L ALT 60 H (4-49) U/L Total Protein 6.2 L (6.3-8.2) g/dL Albumin 3.3 L (3.5-5.0) g/dL Diabetes panel 07/07/23 Range/Units 09:33 Sodium 132 L (137-145) mmol/L Potassium 4.0 (3.5-5.1) mmol/L Chloride 98 (98-107) mmol/L Carbon Dioxide 22 (22-30) mmol/L BUN 26 H (9-20) mg/dL Creatinine 0.93 (0.66-1.25) mg/dL Glucose 103 H (74-99) mg/dL Calcium 7.7 L (8.4-10.2) mg/dL AST 105 H (17-59) U/L ALT 60 H (4-49) U/L Alkaline Phosphatase 50 (38-126) U/L Total Protein 6.2 L (6.3-8.2) g/dL Albumin 3.3 L (3.5-5.0) g/dL Calcium panel 07/07/23 Range/Units 09:33 Calcium 7.7 L (8.4-10.2) mg/dL Albumin 3.3 L (3.5-5.0) g/dL Pituitary panel 07/07/23 Range/Units 09:33 Sodium 132 L (137-145) mmol/L Potassium 4.0 (3.5-5.1) mmol/L Chloride 98 (98-107) mmol/L Carbon Dioxide 22 (22-30) mmol/L BUN 26 H (9-20) mg/dL Creatinine 0.93 (0.66-1.25) mg/dL Glucose 103 H (74-99) mg/dL Calcium 7.7 L (8.4-10.2) mg/dL Adrenal panel 07/07/23 Range/Units 09:33 Sodium 132 L (137-145) mmol/L Potassium 4.0 (3.5-5.1) mmol/L Chloride 98 (98-107) mmol/L Carbon Dioxide 22 (22-30) mmol/L BUN 26 H (9-20) mg/dL Creatinine 0.93 (0.66-1.25) mg/dL Glucose 103 H (74-99) mg/dL Calcium 7.7 L (8.4-10.2) mg/dL Total Bilirubin 1.7 H (0.2-1.3) mg/dL AST 105 H (17-59) U/L ALT 60 H (4-49) U/L Alkaline Phosphatase 50 (38-126) U/L Total Protein 6.2 L (6.3-8.2) g/dL Albumin 3.3 L (3.5-5.0) g/dL Assessment and Plan Assessment: Impression: Alcoholic withdrawal, alcoholism. BPH with obstruction. Recommendations: During the acute alcoholic withdrawal he was having problems urinating but is subsequently leveled out. He is now voiding without diff iculty. We will obtain a postvoid residual make sure he is emptying alright. Otherwise will continue with the tamsulosin and dutasteride.
[2023-07-08] MEDS ORDERED: POTASSIUM CHLORIDE ER 10 MEQ TAB.ER.PRT PO SCH (09:00)
[2023-07-08] MEDS ORDERED: ENOXAPARIN 40 MG/0.4 ML SYRINGE SQ SCH (09:00)
[2023-07-08 09:17] VITALS: PULSE 63
[2023-07-08] MEDS: amLODIPine 5 MG TAB PO SCH (09:17)
[2023-07-08] MEDS: THIAMINE 100 MG TAB PO SCH (09:17)
[2023-07-08] MEDS: ATORVASTATIN 80 MG TAB PO SCH (09:17)
[2023-07-08] MEDS: ASPIRIN 325 MG TAB PO SCH (09:17)
[2023-07-08] MEDS: NALTREXONE HCL 50 MG TAB PO SCH (09:17)
[2023-07-08] MEDS: FINASTERIDE 5 MG TAB PO SCH (09:17)
[2023-07-08] MEDS: TAMSULOSIN 0.4 MG CAP.ER.24H PO SCH (09:17)
[2023-07-08] MEDS: FOLIC ACID 1 MG TAB PO SCH (09:18)
[2023-07-08] MEDS: TROSPIUM CHLORIDE 20 MG TABLET PO SCH (09:18)
[2023-07-08] MEDS: lisinopriL 5 MG TAB PO SCH (09:18)
--- NOTE | 2023-07-08 14:53 | P.DS ---
Providers Date of admission: 07/06/23 22:39 Expected date of discharge: 07/08/23 Attending physician: Chay Claire Consults: 07/07/23 11:08 Consult Physician Routine Consulting Provider: Jack Campbell Consult Reason/Comments: retention Do you want consulting provider notified?: Yes Primary care physician: Chay Claire Hospital Course: HISTORY OF PRESENT ILLNESS: This is a 68-year-old male with a previous medical history significant for hypertension and hypertensive vascular disease, hyperlipidemia, history of enlarged prostate, GERD with esophagitis, history of coronary artery disease status post percutaneous coronary intervention currently under cardiology care, history of enlarged prostate, a droop detrusor instability, osteoporosis, chronic alcohol use and dependence, he shouldn't has been sober for quite sometimes, however he became quite depressed according to his says his son moved into the house with them he is 35-year-old and he has no job and the patient started to get back on the drinking habit again, to relieve some of his depressive episodes, patient was drinking at least a fifth of whiskey on a regular basis, he became quite debilitated, he had lost a lot of weight, he had been fallen quite a bit as well, he was complaining of increased agitation, his daughter brought him to the emergency department at [facility] and he was placed on a CIWA protocol, he was found to have a significant metabolic acidosis his lactic acid was elevated, he was given IV fluid resuscitation the form of normal saline, then he was placed on sodium bicarbonate drip at 75 mL an hour, his acidosis corrected after 12 hours, the patient was switched to normal saline he was found to have a significant hypomagnesemia as well and he was replaced with magnesium 2 g IV piggyback 1. 07/08: Patient has been on the CIWA protocol and mental status is back to baseline. His heart rate is been in the 60s, blood pressure 131/79, pulse ox 100% on room air, afebrile. IV fluids will be discontinued. He has been seen by urology for urinary retention which has resolved and is now voiding without any difficulty. Recommendations to continue Flomax and dutasteride. Bladder scan performed this morning revealed 150-200 ml. patient has been able to ambulate with a walker. He has not been eating much but this was also going on prior to admission. The family is looking to take him home today and will be with him to monitor him. Patient will be discharged home today in stable condition. DISCHARGE DIAGNOSES: 1. Alcohol intoxication with impending alcohol withdrawal. 2. Severe anion gap metabolic acidosis due to poor oral intake of fluid and food along with intractable nausea and vomiting. 3. Lactic acidosis due to poor oral intake and dehydration. 4. Chronic alcohol use and dependence. 5. Recurrent bruising secondary to multiple falls and significant cytopenia due to alcoholism. 6. Macrocytosis with alcoholic induced hepatitis. 7. Hypertension and hypertensive cardiovascular disease. 8. Coronary artery disease status post PCI of the LAD 2013. 9. Mixed hyperlipidemia. 10. Enlarged prostate. Discharge plan: Home Greater than 35 minutes was utilized and coordinating patient's discharge. Impression and plan of care have been directed as dictated by the signing physician. Lucina Osuna nurse practitioner acting as scribe for signing physician. Patient Condition at Discharge: Fair Plan - Discharge Summary Discharge Rx Participant: Yes New Discharge Prescriptions: New Folic Acid 1 mg PO DAILY tab Thiamine [Vitamin B-1] 100 mg PO DAILY tab Folic Acid 1 mg PO DAILY 30 Days #30 tablet Thiamine [Vitamin B-1] 100 mg PO DAILY 30 Days #30 tablet Continue Aspirin 325 mg PO DAILY Metoprolol Tartrate [Lopressor] 50 mg PO HS amLODIPine [Norvasc] 5 mg PO DAILY lisinopriL [Zestril] 5 mg PO DAILY Pantoprazole [Protonix] 40 mg PO HS Potassium Chloride ER [K-Dur 10] 10 meq PO DAILY Atorvastatin [Lipitor] 80 mg PO DAILY Dutasteride [Avodart] 0.5 mg PO DAILY Solifenacin Succinate [Vesicare] 10 mg PO HS Tamsulosin HCl [Flomax] 0.4 mg PO BID Naltrexone HCl [Revia] 50 mg PO DAILY Discharge Medication List Aspirin 325 mg PO DAILY 07/31/16 [History] Metoprolol Tartrate [Lopressor] 50 mg PO HS 09/05/16 [History] amLODIPine [Norvasc] 5 mg PO DAILY 04/15/18 [History] lisinopriL [Zestril] 5 mg PO DAILY 04/15/18 [History] Atorvastatin [Lipitor] 80 mg PO DAILY 01/31/22 [History] Dutasteride [Avodart] 0.5 mg PO DAILY 01/31/22 [History] Solifenacin Succinate [Vesicare] 10 mg PO HS 01/31/22 [History] Tamsulosin HCl [Flomax] 0.4 mg PO BID 01/31/22 [History] Naltrexone HCl [Revia] 50 mg PO DAILY 07/06/23 [History] Pantoprazole [Protonix] 40 mg PO HS 07/06/23 [History] Potassium Chloride ER [K-Dur 10] 10 meq PO DAILY 07/06/23 [History] Folic Acid 1 mg PO DAILY tab 07/08/23 [Rx] Folic Acid 1 mg PO DAILY 30 Days #30 tablet 07/08/23 [Rx] Thiamine [Vitamin B-1] 100 mg PO DAILY tab 07/08/23 [Rx] Thiamine [Vitamin B-1] 100 mg PO DAILY 30 Days #30 tablet 07/08/23 [Rx] Follow up Appointment(s)/Referral(s): Chay Claire MD [Primary Care Provider] - 1-2 Days (Office is closed at time of discharged. Please call for follow-up appointment.) Discharge/Stand Alone Forms: AA Meetings [facility], Outpatient Counseling, Inp Substance Abuse Facilities Discharge Disposition: HOME WITH HOME HEALTH SERVICES
[2023-07-08 16:03] VITALS: BP 131/79; RESP 14; TEMP 97.8
--- NOTE | 2023-07-09 16:36 | P.HPIM ---
History of Present Illness H&P Date: 07/07/23 Chief Complaint: Acute Metabolic acidosis/Alcohol withdrawal HISTORY OF PRESENT ILLNESS: This is a 68-year-old male with a previous medical history significant for hypertension and hypertensive vascular disease, hyperlipidemia, history of enlarged prostate, GERD with esophagitis, history of coronary artery disease status post percutaneous coronary intervention currently under cardiology care, history of enlarged prostate, a droop detrusor instability, osteoporosis, chronic alcohol use and dependence, he shouldn't has been sober for quite sometimes, however he became quite depressed according to his says his son moved into the house with them he is 35-year-old and he has no job and the patient started to get back on the drinking habit again, to relieve some of his depressive episodes, patient was drinking at least a fifth of whiskey on a regular basis, he became quite debilitated, he had lost a lot of weight, he had been fallen quite a bit as well, he was complaining of increased agitation, his daughter brought him to the emergency department at [facility] and he was placed on a CIWA protocol, he was found to have a significant metabolic acidosis his lactic acid was elevated, he was given IV fluid resuscitation the form of normal saline, then he was placed on sodium bicarbonate drip at 75 mL an hour, his acidosis corrected after 12 hours, the patient was switched to normal saline he was found to have a significant hypomagnesemia as well and he was replaced with magnesium 2 g IV piggyback 1. REVIEW OF SYSTEMS: Constitutional: No documented fever, no chills, no night sweats. No weight change. positive for weakness, fatigue or lethargy. No daytime sleepiness. HEENT: No headache. No blurred vision or double vision, no loss of vision. No loss of Hearing, no ringing in the ears, no dizziness. No nasal drainage or c ongestion. No epistaxis. No sore throat. Lungs: No shortness of breath, no cough, no sputum production. No wheezing. Reports dyspnea with activity. Cardiovascular: No chest pain, no lower extremity edema. No palpitations. No paroxysmal nocturnal dyspnea. No orthopnea. No lightheadedness or dizziness. No syncopal episodes. Abdominal: Reports abdominal pain. positive for nausea, vomiting. No diarrhea. No constipation. No bloody or tarry stools reports loss of appetite. Genitourinary: No dysuria, increased frequency, urgency. No urinary retention. Musculoskeletal: No myalgias. No muscle weakness, no gait dysfunction, no frequent falls. No back pain. No neck pain. Integumentary: No wounds, no lesions. No rash or pruritus. positive for bruising. No change in hair or nails. Neurologic: No aphasia. No facial droop. No change in mentation. No head injury. No headache. No paralysis. No paresthesia. Psychiatric: positive for depression. No anxiety. No mood swings. Endocrine: No abnormal blood sugars. No weight change. PAST MEDICAL HISTORY: Hypertension and hypertensive cardiovascular disease. Hyperlipidemia. Coronary artery disease status post PCI. Enlarged prostate. Detrusor instability. GERD with esophagitis Chronic alcohol use and dependence. Depression. PAST SURGICAL HISTORY: Left heart catheterization with PCI of the LAD 2013 Colonoscopy 2004 Left kidney stone Eye surgery for squint Colonoscopy 02/05/2022. SOCIAL HISTORY: Patient used to smoke about a pack every day since the age of 15 and he quit in 2013, patient drinks at least a fifth of whiskey on a daily basis, he denies any drug use or abuse. Lives with his . FAMILY HISTORY: Father at age of 70 from [place] he also had history of hypertension and rheumatoid arthritis, mother at age of 98 from old age, patient has one brother 75-year-old no health issues, patient had a sister who at the age of 50 from colon cancer, patient has one son 37-year-old lives with him, and patient has 2 daughters no major current problems. PHYSICAL EXAMINATION: General: 68-year-old male laying down in bed in no apparent distress. HEENT: Head is atraumatic, normocephalic, pupils were equal round reactive to light and recommendation, extraocular muscle movement were intact, sclera nonicteric, conjunctivae were pale, mucous membranes of the mouth are somewhat dry. Neck: Supple, no JVP, normal carotid upstroke bilaterally, no lymphadenopathy. Chest: Decreased breath sounds at the bases, few rhonchi, no expiratory wheezes, no chest wall tenderness, no intercostal retractions. Heart: First heart sound is normal, second heart sounds normal there is CHEL 2/6 located at the left sternal border. Abdomen: Soft, nontender, nondistended, positive bowel sounds. Extremities: There is no edema no calf tenderness DP +2 bilaterally. Neurologic examination: Patient is drowzy opens his eyes in response to verbal stimuli cranial nerves II-12 appear grossly intact, muscle power were 5 out of 5 in upper extremities and 5 out of 5 in bilateral lower extremities, deep tendon reflexes normal bilaterally. ASSESSMENT AND PLAN: 1. Alcohol intoxication with impending alcohol withdrawal. We will start the patient on CIWA protocol, he will be placed also on banana bag every other IV back. We'll continue with thiamine 100 mg once every day, folic acid 1 mg once every day, multivitamin once every day monitor the patient very closely during his hospital stay. Seizure precautions will be applied. 2. Severe anion gap metabolic acidosis due to poor oral intake of fluid and fo od along with intractable nausea and vomiting. Continue patient on sodium bicarbonate drip with D5W with 3 A of sodium bicarbonate at 75 mL an hour for the next 12 hours and then switch the IV fluid to normal saline alternate with banana bag every other liter. Monitor the patient on X regular closely. 3. Lactic acidosis due to poor oral intake and dehydration. Continue IV fluid resuscitation, monitor the patient lactic acid next 6 hours. 4. Chronic alcohol use and dependence. Patient will need to be counseled about alcoholism as well as he would need to be evaluated for major depressive disorder. 5. Recurrent bruising secondary to multiple falls. And significant from cytopenia due to alcoholism. 6. Macrocytosis with alcoholic induced hepatitis. [place] IV alcohol continue with folic acid 1 mg once every day, continue with thiamine 100 mg once every day, multivitamin once every day, monitor the patient's symptoms very closely. 7. Hypertension and hypertensive cardiovascular disease. Continue patient on metoprolol ER 50 mg once every day, as well as lisinopril 5 mg orally once every day, amlodipine 5 minute gram orally once every day, monitor the patient blood pressure very closely. 8. Coronary artery disease status post PCI of the LAD 2013. Continue patient on metoprolol ER 50 mg once every day, continue aspirin 81 mg once every day, continue atorvastatin 80 mg once every day. 9. Mixed hyperlipidemia. Continue patient on atorvastatin 80 mg once every day. 10. Enlarged prostate. Continue patient on Flomax 0.4 mg once every day as well as Avodart 0.5 minute gram once every day. 11. Admitted to inpatient. Estimate a length of stay 2 midnights. 12. Full code. Past Medical History Past Medical History: Coronary Artery Disease (CAD), Chest Pain / Angina, GERD/Reflux, Hyperlipidemia, Hypertension, Myocardial Infarction ([place]) Additional Past Medical History / Comment(s): Hx retinal bleed rt eye (has sx), kidney stone, has freq urination. 2013 fell, fx L1 - chronic back pain. Last Myocardial Infarction Date:: History of Any Multi-Drug Resistant Organisms: None Reported Past Surgical History: Heart Catheterization With Stent Additional Past Surgical History / Comment(s): Age 4 - surgery for cross eyes, Laser SX for Retinal bleed, Vein stripping, Cardiac stents X2, Lithotripsy x2, Colonoscopy, EGD Past Anesthesia/Blood Transfusion Reactions: No Reported Reaction Additional Past Anesthesia/Blood Transfusion Reaction / Comment(s): (Claustrophobia w/ MRI) Date of Last Stent Placement:: 2010 Past Psychological History: No Psychological Hx Reported Smoking Status: Former smoker Past Alcohol Use History: Abuse, Daily, Heavy Additional Past Alcohol Use History / Comment(s): Smoked for 30 years, 1 / ppd, Quit . Quit alcohol 2018. Relapse 2022, stated alcohol use was occuring over past year Past Drug Use History: None Reported - Past Family History Mother Additional Family Medical History / Comment(s): ASHD- AGE 98 Father Family Medical History: Myocardial Infarction ([place]) Sister(s) Family Medical History: Cancer Additional Family Medical History / Comment(s): COLON/BOWEL CANCER. Medications and Allergies Home Medications Medication Instructions Recorded Confirmed Type Aspirin 325 mg PO DAILY 07/31/16 07/06/23 History Metoprolol Tartrate [Lopressor] 50 mg PO HS 09/05/16 07/06/23 History amLODIPine [Norvasc] 5 mg PO DAILY 04/15/18 07/07/23 History lisinopriL [Zestril] 5 mg PO DAILY 04/15/18 07/06/23 History Atorvastatin [Lipitor] 80 mg PO DAILY 01/31/22 07/07/23 History Dutasteride [Avodart] 0.5 mg PO DAILY 01/31/22 07/06/23 History Solifenacin Succinate [Vesicare] 10 mg PO HS 01/31/22 07/06/23 History Tamsulosin HCl [Flomax] 0.4 mg PO BID 01/31/22 07/06/23 History Naltrexone HCl [Revia] 50 mg PO DAILY 07/06/23 07/07/23 History Pantoprazole [Protonix] 40 mg PO HS 07/06/23 07/06/23 History Potassium Chloride ER [K-Dur 10] 10 meq PO DAILY 07/06/23 07/06/23 History Folic Acid 1 mg PO DAILY tab 07/08/23 Rx Folic Acid 1 mg PO DAILY 30 Days #30 tablet 07/08/23 Rx Thiamine [Vitamin B-1] 100 mg PO DAILY tab 07/08/23 Rx Thiamine [Vitamin B-1] 100 mg PO DAILY 30 Days #30 tablet 07/08/23 Rx Allergies Allergy/AdvReac Type Severity Reaction Status Date / Time No Known Allergies Allergy Verified 07/06/23 19:36 Physical Exam Vitals: Vital Signs Temp Pulse Pulse Resp BP BP Pulse Ox 07/07/23 12:05 62 144/76 07/07/23 10:43 96 07/07/23 07:48 98.8 F 61 18 125/75 96 07/07/23 01:41 98.4 F 65 19 129/69 94 L 07/07/23 01:07 98.9 F 07/07/23 01:06 66 20 127/70 94 L 07/06/23 21:40 71 18 120/64 98 07/06/23 18:03 83 18 118/65 99 07/06/23 17:22 97.4 F L 104 H 22 142/79 100 Intake and Output 07/06/23 07/07/23 07/07/23 22:59 06:59 14:59 Output Total 460 225 Balance -460 -225 Output: Urine 460 225 Straight 460 Other: Weight 91.626 kg 91.626 kg Results CBC & Chem 7: 07/07/23 09:33 07/07/23 09:33 Labs: Abnormal Lab Results - Last 24 Hours (Table) 07/06/23 07/06/23 07/06/23 Range/Units 17:37 17:37 17:37 RBC 3.87 L (4.30-5.90) m/uL Hgb (13.0-17.5) gm/dL Hct (39.0-53.0) % MCV 109.3 H (80.0-100.0) fL MCH 35.7 H (25.0-35.0) pg Plt Count 120 L (150-450) k/uL Lymphocytes # 0.9 L (1.0-4.8) k/uL Macrocytosis Marked A VBG pH (7.31-7.41) VBG pCO2 (37-51) mmHg VBG HCO3 (24-28) mmol/L Sodium 134 L (137-145) mmol/L Chloride 95 L (98-107) mmol/L Carbon Dioxide 9 L* (22-30) mmol/L BUN 27 H (9-20) mg/dL Creatinine 1.30 H (0.66-1.25) mg/dL Glucose 64 L (74-99) mg/dL POC Glucose (mg/dL) (70-110) mg/dL Plasma Lactic Acid Omar (0.7-2.0) mmol/L Calcium (8.4-10.2) mg/dL Magnesium (1.6-2.3) mg/dL Total Bilirubin 1.4 H (0.2-1.3) mg/dL AST 140 H (17-59) U/L ALT 63 H (4-49) U/L Total Protein (6.3-8.2) g/dL Albumin (3.5-5.0) g/dL Urine Protein 1+ H (Negative) Urine Ketones 3+ H (Negative) Urine Blood Small H (Negative) Urine Bacteria Rare H (None) /hpf Hyaline Casts 10 H (0-2) /lpf Urine Mucus Rare H (None) /hpf 07/06/23 07/06/23 07/06/23 Range/Units 21:30 21:30 22:40 RBC (4.30-5.90) m/uL Hgb (13.0-17.5) gm/dL Hct (39.0-53.0) % MCV (80.0-100.0) fL MCH (25.0-35.0) pg Plt Count (150-450) k/uL Lymphocytes # (1.0-4.8) k/uL Macrocytosis VBG pH 7.24 L (7.31-7.41) VBG pCO2 32 L (37-51) mmHg VBG HCO3 14 L (24-28) mmol/L Sodium (137-145) mmol/L Chloride (98-107) mmol/L Carbon Dioxide (22-30) mmol/L BUN (9-20) mg/dL Creatinine (0.66-1.25) mg/dL Glucose (74-99) mg/dL POC Glucose (mg/dL) (70-110) mg/dL Plasma Lactic Acid Omar 4.8 H* (0.7-2.0) mmol/L Calcium (8.4-10.2) mg/dL Magnesium 1.5 L (1.6-2.3) mg/dL Total Bilirubin (0.2-1.3) mg/dL AST (17-59) U/L ALT (4-49) U/L Total Protein (6.3-8.2) g/dL Albumin (3.5-5.0) g/dL Urine Protein (Negative) Urine Ketones (Negative) Urine Blood (Negative) Urine Bacteria (None) /hpf Hyaline Casts (0-2) /lpf Urine Mucus (None) /hpf 07/07/23 07/07/23 07/07/23 Range/Units 00:07 00:17 09:33 RBC 3.33 L (4.30-5.90) m/uL Hgb 12.2 L (13.0-17.5) gm/dL Hct 35.4 L (39.0-53.0) % MCV 106.4 H (80.0-100.0) fL MCH 36.8 H (25.0-35.0) pg Plt Count 85 L (150-450) k/uL Lymphocytes # 0.9 L (1.0-4.8) k/uL Macrocytosis VBG pH (7.31-7.41) VBG pCO2 (37-51) mmHg VBG HCO3 (24-28) mmol/L Sodium (137-145) mmol/L Chloride (98-107) mmol/L Carbon Dioxide (22-30) mmol/L BUN (9-20) mg/dL Creatinine (0.66-1.25) mg/dL Glucose (74-99) mg/dL POC Glucose (mg/dL) 57 L (70-110) mg/dL Plasma Lactic Acid Omar 2.9 H* (0.7-2.0) mmol/L Calcium (8.4-10.2) mg/dL Magnesium (1.6-2.3) mg/dL Total Bilirubin (0.2-1.3) mg/dL AST (17-59) U/L ALT (4-49) U/L Total Protein (6.3-8.2) g/dL Albumin (3.5-5.0) g/dL Urine Protein (Negative) Urine Ketones (Negative) Urine Blood (Negative) Urine Bacteria (None) /hpf Hyaline Casts (0-2) /lpf Urine Mucus (None) /hpf 07/07/23 Range/Units 09:33 RBC (4.30-5.90) m/uL Hgb (13.0-17.5) gm/dL Hct (39.0-53.0) % MCV (80.0-100.0) fL MCH (25.0-35.0) pg Plt Count (150-450) k/uL Lymphocytes # (1.0-4.8) k/uL Macrocytosis VBG pH (7.31-7.41) VBG pCO2 (37-51) mmHg VBG HCO3 (24-28) mmol/L Sodium 132 L (137-145) mmol/L Chloride (98-107) mmol/L Carbon Dioxide (22-30) mmol/L BUN 26 H (9-20) mg/dL Creatinine (0.66-1.25) mg/dL Glucose 103 H (74-99) mg/dL POC Glucose (mg/dL) (70-110) mg/dL Plasma Lactic Acid Omar (0.7-2.0) mmol/L Calcium 7.7 L (8.4-10.2) mg/dL Magnesium (1.6-2.3) mg/dL Total Bilirubin 1.7 H (0.2-1.3) mg/dL AST 105 H (17-59) U/L ALT 60 H (4-49) U/L Total Protein 6.2 L (6.3-8.2) g/dL Albumin 3.3 L (3.5-5.0) g/dL Urine Protein (Negative) Urine Ketones (Negative) Urine Blood (Negative) Urine Bacteria (None) /hpf Hyaline Casts (0-2) /lpf Urine Mucus (None) /hpf
== END 2023-07-08 17:27 | disposition home health service (06) | DRG 897 ==
LOC: EC 17:19 → 4SSUR 22:39
PROVIDERS: ADMIT Internal Medicine; ATTEND Internal Medicine
PROC: HZ2ZZZZ Detoxification Services for Substance Abuse Treatment (ICD-10-PCS; principal; 2023-07-06)
DX: F10.231 Alcohol dependence with withdrawal delirium (principal); N17.9 Acute kidney failure, unspecified; E87.20 Acidosis, unspecified; Y90.6 Blood alcohol level of 120-199 mg/100 ml; E78.5 Hyperlipidemia, unspecified; F17.210 Nicotine dependence, cigarettes, uncomplicated; I10 Essential (primary) hypertension; Z71.41 Alcohol abuse counseling and surveillance of alcoholic; Z71.6 Tobacco abuse counseling; F40.240 Claustrophobia; G89.29 Other chronic pain; I25.10 Atherosclerotic heart disease of native coronary artery without angina pectoris; I25.2 Old myocardial infarction; Z87.442 Personal history of urinary calculi; F10.229 Alcohol dependence with intoxication, unspecified; K70.10 Alcoholic hepatitis without ascites; M81.0 Age-related osteoporosis without current pathological fracture; D75.89 Other specified diseases of blood and blood-forming organs; E78.2 Mixed hyperlipidemia; E83.42 Hypomagnesemia; K21.00 Gastro-esophageal reflux disease with esophagitis, without bleeding; E86.0 Dehydration; R11.2 Nausea with vomiting, unspecified; R29.6 Repeated falls; N40.0 Benign prostatic hyperplasia without lower urinary tract symptoms; Z91.81 History of falling; Z79.82 Long term (current) use of aspirin; Z79.899 Other long term (current) drug therapy; Z95.5 Presence of coronary angioplasty implant and graft; Z82.49 Family history of ischemic heart disease and other diseases of the circulatory system
CPT/HCPCS: 36415; 74176; 80053; 80320; 81001; 82140; 82803; 83605; 83735; 84100; 85025; 96361; 96365; 96372; 96375; 96376; 99285

== ENCOUNTER 2023-12-13 11:43 | Emergency (ER) | payer MEDICARE ==
--- NOTE | 2023-12-13 11:55 | ED ---
General Adult HPI - General Source: patient, family, RN notes reviewed Mode of arrival: wheelchair Limitations: no limitations <Brittani Joe - Last Filed: 12/13/23 17:11> <Ernesto Gonzalez - Last Filed: 12/13/23 20:16> - General Chief complaint: Weakness Stated complaint: Loss of Appietie Time Seen by Provider: 12/13/23 11:45 - History of Present Illness Initial comments: This is a 68 year old male who presents to the emergency department for weakness. His family states that he recently started consuming alcohol again, and over the last 5 days he has not been eating and is not compliant with his medication. He last threw up 2 days ago, but had a few sips of water before coming here, and now feels very nauseous. His last alcoholic beverage was yesterday, states that he had whisky. States that this is the third time he has been to the hospital recently for alcohol abuse and intoxication. He wants to st op drinking and does not like how it makes him feel, but is struggling to stop on his own. Denies any problems with depression or suicidal ideations. He has gone through withdrawals before, but does not feel like he is developing any of those symptoms this time. (Brittani Joe) - Related Data Home Medications Medication Instructions Recorded Confirmed Aspirin 325 mg PO DAILY 07/31/16 08/10/23 Metoprolol Tartrate [Lopressor] 50 mg PO HS 09/05/16 08/10/23 amLODIPine [Norvasc] 5 mg PO DAILY 04/15/18 08/10/23 lisinopriL [Zestril] 5 mg PO DAILY 04/15/18 08/10/23 Atorvastatin [Lipitor] 80 mg PO DAILY 01/31/22 08/10/23 Dutasteride [Avodart] 0.5 mg PO DAILY 01/31/22 08/10/23 Solifenacin Succinate [Vesicare] 10 mg PO HS 01/31/22 08/10/23 Tamsulosin HCl [Flomax] 0.4 mg PO BID 01/31/22 08/10/23 Pantoprazole [Protonix] 40 mg PO HS 07/06/23 08/10/23 Potassium Chloride ER [K-Dur 10] 10 meq PO DAILY 07/06/23 08/10/23 Previous Rx's Medication Instructions Recorded Folic Acid 1 mg PO DAILY tab 07/08/23 Thiamine [Vitamin B-1] 100 mg PO DAILY tab 07/08/23 Multivitamins, Thera [Multivitamin 1 each PO DAILY@1200 tab 08/12/23 (formulary)] Naltrexone HCl 50 mg PO DAILY #30 tab 08/12/23 Sertraline [Zoloft] 25 mg PO DAILY #30 tablet 08/12/23 traZODone HCL [Desyrel] 25 mg PO HS #30 tab 08/12/23 Metoclopramide [Reglan] 10 mg PO Q6H PRN #20 tab 12/13/23 Allergies Allergy/AdvReac Type Severity Reaction Status Date / Time No Known Allergies Allergy Verified 08/10/23 10:36 Review of Systems ROS Other: All systems not noted in ROS Statement are negative. <Brittani Joe - Last Filed: 12/13/23 17:11> ROS Other: All systems not noted in ROS Statement are negative. <Ernesto Gonzalez - Last Filed: 12/13/23 20:16> ROS Statement: Those systems with pertinent positive or pertinent negative responses have been documented in the HPI. Past Medical History Past Medical History: Coronary Artery Disease (CAD), Chest Pain / Angina, GERD/Reflux, Hyperlipidemia, Hypertension, Myocardial Infarction (VT) Additional Past Medical History / Comment(s): Hx retinal bleed rt eye (has sx), kidney stone, has freq urination. 2012 fell, fx L1 - chronic back pain. ETOH Last Myocardial Infarction Date:: History of Any Multi-Drug Resistant Organisms: None Reported Past Surgical History: Heart Catheterization With Stent Additional Past Surgical History / Comment(s): Age 4 - surgery for cross eyes, Laser SX for Retinal bleed, Vein stripping, Cardiac stents X2, Lithotripsy x2, Colonoscopy, EGD Past Anesthesia/Blood Transfusion Reactions: No Reported Reaction Additional Past Anesthesia/Blood Transfusion Reaction / Comment(s): (Claustrophobia w/ MRI) Date of Last Stent Placement:: 2010 Past Psychological History: No Psychological Hx Reported Smoking Status: Former smoker Past Alcohol Use History: Abuse, Daily, Heavy Additional Past Alcohol Use History / Comment(s): Smoked for 30 years, 1 1/2 ppd, Quit . Quit alcohol 2019. Relapse 2022, stated alcohol use was occuring over past year Past Drug Use History: None Reported - Past Family History Mother Additional Family Medical History / Comment(s): ASHD- AGE 98 Father Family Medical History: Myocardial Infarction (VT) Sister(s) Family Medical History: Cancer Additional Family Medical History / Comment(s): COLON/BOWEL CANCER. <Brittani Joe - Last Filed: 12/13/23 17:11> General Exam Limitations: no limitations General appearance: alert, in no apparent distress Head exam: Present: atraumatic, normocephalic, normal inspection Respiratory exam: Present: normal lung sounds bilaterally. Absent: respiratory distress, wheezes, rales, rhonchi, stridor Cardiovascular Exam: Present: regular rate, normal rhythm, normal heart sounds. Absent: systolic murmur, diastolic murmur, rubs, gallop, clicks GI/Abdominal exam: Present: soft, normal bowel sounds. Absent: distended, tenderness, guarding, rebound, rigid Neurological exam: Present: alert, oriented X3, CN II-XII intact Psychiatric exam: Present: normal affect, normal mood Skin exam: Present: warm, dry, intact, normal color. Absent: rash <Brittani Joe - Last Filed: 12/13/23 17:11> - General Exam Comments Initial Comments: Visual Physical Exam Vital signs reviewed General: Well-appearing, nontoxic, no acute distress. Head: Normocephalic, atraumatic Eyes: PERRLA, EOMI ENT: Airway patent Chest: Nonlabored breathing Skin: No visual rash, normal skin tone Neuro: Alert and oriented 3 Musculoskeletal: No gross abnormalities (Brittani Joe) Course Vital Signs 12/13/23 12/13/23 12:00 19:18 Temperature 98.4 F Pulse Rate 54 L 60 Respiratory 16 18 Rate Blood Pressure 133/77 148/89 O2 Sat by Pulse 100 97 Oximetry Medical Decision Making - Lab Data Result diagrams: 12/13/23 12:17 12/13/23 12:17 <Brittani Joe - Last Filed: 12/13/23 17:11> - Lab Data Result diagrams: 12/13/23 12:17 12/13/23 12:17 <Ernesto Gonzalez - Last Filed: 12/13/23 20:16> - Medical Decision Making This is a 68-year-old male who presents emergency department for alcohol consumption and lack of appetite. Was pt. sent in by a medical professional or institution? @ -No Did you speak to anyone other than the patient for history? @ -No Did you review nursing and triage notes? @ -Yes, and I agree, it is accurate with regards to the patient's symptoms. Were old charts reviewed? @ -No Differential Diagnosis? @ -Differential Decreased Appetitie: Depression, CKD, hypothyroidism, medications, substance abuse EKG interpreted by me (3pts min.)? @ -EKG interpreted by me demonstrating the following: Sinus bradycardia. Left axis deviation. Ventricular rate 51 bpm, IN interval 151 ms, QRS duration 170 ms, QTC 475 ms. X-rays interpreted by me (1pt min.)? @ -Not obtained CT interpreted by me (1pt min.)? @ -Not obtained U/S interpreted by me (1pt. min.)? @ -Not obtained What testing was considered but not performed? (CT, X-rays, U/S, labs)? Why? @ -None What meds were considered but not given? Why? @ -None Did you discuss the management of the patient with other professionals? @ -No Did you reconcile home meds? @ -No Was smoking cessation discussed for >3mins.? @ -No Was critical care preformed (if so, how long)? @ -No Were there social determinants of health that impacted care today? How? (Homelessness, low income, unemployed, alcoholism, drug addiction, transportation, low edu. Level, literacy, decrease access to med. care, intermediate, rehab)? @ -No Was there de-escalation of care discussed even if they declined? (Discuss DNR or withdrawal of care, Hospice)? @ -No What co-morbidities impacted this encounter? (DM, HTN, Smoking, COPD, CAD, Cancer, CVA, Hep., AIDS, mental health diagnosis, sleep apnea, morbid obesity)? @ -Alcoholism, GERD, HTN, CAD Was patient admitted / discharged? @ -Lab work obtained revealing signs of dehydration and elevated liver enzymes. Elevated liver enzymes are stable when compared to prior values during periods of alcohol consumption. He does have mild hypoglycemia with a glucose of 71 due to patient's reduced oral intake. He also has signs of alcoholic ketoacidosis and lactic acid is 3.0. Alcohol level is 144. Urinalysis negative for signs of infection. He was initially given ODT zofran in the waiting room with moderate improvement in nausea. When he was brought back to an examination room, he was given IV fluids, an additional 4mg of Zofran, and Pepcid. Symptoms did continue to improve, however he requested additional nausea medication due to fear of vomiting again. He was given another 1L bolus of IV fluids and 10mg of Reglan. Patient felt that the Reglan was much more beneficial. When discus sing disposition options with the patient, he was unsure what he wanted to do, but was overall feeling much better. Patient was agreeable to a repeat lactic acid. Case signed out to ED attending, Dr. Gonzalez, at shift completion pending repeat lactic acid. Undiagnosed new problem with uncertain prognosis? @ -None Drug Therapy requiring intensive monitoring for toxicity (Heparin, Nitro, Insulin, Cardizem)? @ -None Were any procedures done? @ -None Diagnosis/symptom? @ -Lack of appetitie, nausea and vomiting, alcoholic ketoacidosis Acute, or Chronic, or Acute on Chronic? @ -Acute Uncomplicated (without systemic symptoms) or Complicated (systemic symptoms)? @ -Complicated Side effects of treatment? @ -None Exacerbation, Progression, or Severe Exacerbation] @ -Not applicable Poses a threat to life or bodily function? @ -No Diagnosis/symptom? @ -Alcoholism Acute, or Chronic, or Acute on Chronic? @ -Chronic Uncomplicated (without systemic symptoms) or Complicated (systemic symptoms)? @ -Complicated Side effects of treatment? @ -Not applicable Exacerbation, Progression, or Severe Exacerbation] @ -Exacerbation Poses a threat to life or bodily function? @ -This does pose health risks in general. (Brittani Joe) Patient signed out to me pending results of lactic acid redraw as well as repeat blood sugar. Presents for weakness. Is a chronic alcohol abuser. Was already prescribed naltrexone. Workup up until this point is remarkable for mild hyperglycemia as well as a lactic acidosis of 3. He is acutely intoxicated with alcohol as well. Nonspecific elevated LFTs secondary to alcohol abuse more than likely. He has no other symptoms. Patient would like to go home. We did recommend repeat lactic acid which will be obtained. He has received 2 L fluid bolus. He was in agreement this plan. Repeat lactic acid is within normal limits. Accu-Chek upon discharge within acceptable limits. Patient's will drive the patient home. Patient was discharged home at this time. He was in agreement this plan. Strict return precautions discussed. (Ernesto Gonzalez) - Lab Data Lab Results 12/13/23 12/13/23 12/13/23 Range/Units 12:17 12:17 14:28 WBC 6.5 (3.8-10.6) k/uL RBC 4.51 (4.30-5.90) m/uL Hgb 15.0 (13.0-17.5) gm/dL Hct 45.6 (39.0-53.0) % MCV 101.3 H (80.0-100.0) fL MCH 33.4 (25.0-35.0) pg MCHC 32.9 (31.0-37.0) g/dL RDW 13.7 (11.5-15.5) % Plt Count 173 (150-450) k/uL MPV 8.3 Neutrophils % 63 % Lymphocytes % 28 % Monocytes % 5 % Eosinophils % 1 % Basophils % 1 % Neutrophils # 4.1 (1.3-7.7) k/uL Lymphocytes # 1.9 (1.0-4.8) k/uL Monocytes # 0.3 (0-1.0) k/uL Eosinophils # 0.1 (0-0.7) k/uL Basophils # 0.0 (0-0.2) k/uL Macrocytosis Slight Sodium 138 (137-145) mmol/L Potassium 4.2 (3.5-5.1) mmol/L Chloride 99 (98-107) mmol/L Carbon Dioxide 17 L (22-30) mmol/L Anion Gap 22 mmol/L BUN 28 H (9-20) mg/dL Creatinine 1.21 (0.66-1.25) mg/dL Est GFR (CKD-EPI)AfAm 70 (>60 ml/min/1.73 sqM) Est GFR (CKD-EPI)NonAf 61 (>60 ml/min/1.73 sqM) Glucose 71 L (74-99) mg/dL POC Glucose (mg/dL) (70-110) mg/dL POC Glu Program Director/Music Director ID Lactic Ac Sepsis Rflx Plasma Lactic Acid Omar (0.7-2.0) mmol/L Calcium 9.1 (8.4-10.2) mg/dL Magnesium 1.9 (1.6-2.3) mg/dL Total Bilirubin 1.5 H (0.2-1.3) mg/dL AST 153 H (17-59) U/L ALT 96 H (4-49) U/L Alkaline Phosphatase 90 (38-126) U/L Total Protein 8.2 (6.3-8.2) g/dL Albumin 4.8 (3.5-5.0) g/dL Amylase 56 (30-110) U/L Lipase 205 (23-300) U/L Urine Color Yellow Urine Appearance Clear (Clear) Urine pH 5.5 (5.0-8.0) Ur Specific [place] 1.015 (1.001-1.035) Urine Protein 1+ H (Negative) Urine Glucose (UA) Negative (Negative) Urine Ketones 2+ H (Negative) Urine Blood Trace H (Negative) Urine Nitrite Negative (Negative) Urine Bilirubin Negative (Negative) Urine Urobilinogen <2.0 (<2.0) mg/dL Ur Leukocyte Esterase Negative (Negative) Urine RBC <1 (0-5) /hpf Urine WBC 1 (0-5) /hpf Ur Squamous Epith Cells <1 (0-4) /hpf Hyaline Casts 1 (0-2) /lpf Urine Mucus Rare H (None) /hpf Serum Alcohol 144 mg/dL 12/13/23 12/13/23 12/13/23 Range/Units 15:03 16:08 17:32 WBC (3.8-10.6) k/uL RBC (4.30-5.90) m/uL Hgb (13.0-17.5) gm/dL Hct (39.0-53.0) % MCV (80.0-100.0) fL MCH (25.0-35.0) pg MCHC (31.0-37.0) g/dL RDW (11.5-15.5) % Plt Count (150-450) k/uL MPV Neutrophils % % Lymphocytes % % Monocytes % % Eosinophils % % Basophils % % Neutrophils # (1.3-7.7) k/uL Lymphocytes # (1.0-4.8) k/uL Monocytes # (0-1.0) k/uL Eosinophils # (0-0.7) k/uL Basophils # (0-0.2) k/uL Macrocytosis Sodium (137-145) mmol/L Potassium (3.5-5.1) mmol/L Chloride (98-107) mmol/L Carbon Dioxide (22-30) mmol/L Anion Gap mmol/L BUN (9-20) mg/dL Creatinine (0.66-1.25) mg/dL Est GFR (CKD-EPI)AfAm (>60 ml/min/1.73 sqM) Est GFR (CKD-EPI)NonAf (>60 ml/min/1.73 sqM) Glucose (74-99) mg/dL POC Glucose (mg/dL) (70-110) mg/dL POC Glu Program Director/Music Director ID Lactic Ac Sepsis Rflx Y Plasma Lactic Acid Omar 3.0 H* 2.0 (0.7-2.0) mmol/L Calcium (8.4-10.2) mg/dL Magnesium (1.6-2.3) mg/dL Total Bilirubin (0.2-1.3) mg/dL AST (17-59) U/L ALT (4-49) U/L Alkaline Phosphatase (38-126) U/L Total Protein (6.3-8.2) g/dL Albumin (3.5-5.0) g/dL Amylase (30-110) U/L Lipase (23-300) U/L Urine Color Urine Appearance (Clear) Urine pH (5.0-8.0) Ur Specific [place] (1.001-1.035) Urine Protein (Negative) Urine Glucose (UA) (Negative) Urine Ketones (Negative) Urine Blood (Negative) Urine Nitrite (Negative) Urine Bilirubin (Negative) Urine Urobilinogen (<2.0) mg/dL Ur Leukocyte Esterase (Negative) Urine RBC (0-5) /hpf Urine WBC (0-5) /hpf Ur Squamous Epith Cells (0-4) /hpf Hyaline Casts (0-2) /lpf Urine Mucus (None) /hpf Serum Alcohol mg/dL 12/13/23 12/13/23 Range/Units 18:01 18:33 WBC (3.8-10.6) k/uL RBC (4.30-5.90) m/uL Hgb (13.0-17.5) gm/dL Hct (39.0-53.0) % MCV (80.0-100.0) fL MCH (25.0-35.0) pg MCHC (31.0-37.0) g/dL RDW (11.5-15.5) % Plt Count (150-450) k/uL MPV Neutrophils % % Lymphocytes % % Monocytes % % Eosinophils % % Basophils % % Neutrophils # (1.3-7.7) k/uL Lymphocytes # (1.0-4.8) k/uL Monocytes # (0-1.0) k/uL Eosinophils # (0-0.7) k/uL Basophils # (0-0.2) k/uL Macrocytosis Sodium (137-145) mmol/L Potassium (3.5-5.1) mmol/L Chloride (98-107) mmol/L Carbon Dioxide (22-30) mmol/L Anion Gap mmol/L BUN (9-20) mg/dL Creatinine (0.66-1.25) mg/dL Est GFR (CKD-EPI)AfAm (>60 ml/min/1.73 sqM) Est GFR (CKD-EPI)NonAf (>60 ml/min/1.73 sqM) Glucose (74-99) mg/dL POC Glucose (mg/dL) 53 L 77 (70-110) mg/dL POC Glu Program Director/Music Director ID Misha, Reshma Misha, Reshma Lactic Ac Sepsis Rflx Plasma Lactic Acid Omar (0.7-2.0) mmol/L Calcium (8.4-10.2) mg/dL Magnesium (1.6-2.3) mg/dL Total Bilirubin (0.2-1.3) mg/dL AST (17-59) U/L ALT (4-49) U/L Alkaline Phosphatase (38-126) U/L Total Protein (6.3-8.2) g/dL Albumin (3.5-5.0) g/dL Amylase (30-110) U/L Lipase (23-300) U/L Urine Color Urine Appearance (Clear) Urine pH (5.0-8.0) Ur Specific [place] (1.001-1.035) Urine Protein (Negative) Urine Glucose (UA) (Negative) Urine Ketones (Negative) Urine Blood (Negative) Urine Nitrite (Negative) Urine Bilirubin (Negative) Urine Urobilinogen (<2.0) mg/dL Ur Leukocyte Esterase (Negative) Urine RBC (0-5) /hpf Urine WBC (0-5) /hpf Ur Squamous Epith Cells (0-4) /hpf Hyaline Casts (0-2) /lpf Urine Mucus (None) /hpf Serum Alcohol mg/dL Disposition Is patient prescribed a controlled substance at d/c from ED?: No <Brittani Joe - Last Filed: 12/13/23 17:11> Is patient prescribed a controlled substance at d/c from ED?: No Time of Disposition: 18:55 <Ernesto Gonzalez - Last Filed: 12/13/23 20:16> Clinical Impression: Loss of appetite, Nausea and vomiting, Alcoholism Disposition: HOME SELF-CARE Condition: Good Instructions (If sedation given, give patient instructions): Acute Nausea and Vomiting (ED), Alcohol Withdrawal (ED) Additional Instructions: Return to the emergency department with any new, worsening, or concerning symptoms. You can take the Reglan up to every 6 hours as needed for nausea and vomiting. Slowly advance your diet as tolerated and remain well hydrated. Follow up with your primary care provider in 1-2 days. Prescriptions: Metoclopramide [Reglan] 10 mg PO Q6H PRN #20 tab PRN Reason: Nausea And Vomiting Referrals: Chay Claire MD [Primary Care Provider] - 1-2 days
[2023-12-13] MEDS: LIDOCAINE/EPINEPHR/TETRACAINE 5 ML BOTTLE TOPICAL ONE (12:20)
[2023-12-13 12:42] LABS: Basophils % (A) 1 %; Eosinophils # (A) 0.1 k/uL (0-0.7); Eosinophils % (A) 1 %; HCT 45.6 % (39.0-53.0); Lymphocytes # (A) 1.9 k/uL (1.0-4.8); Lymphocytes % (A) 28 %; MCH 33.4 pg (25.0-35.0); MCHC 32.9 g/dL (31.0-37.0); MCV 101.3 fL (80.0-100.0); Macrocytosis Slight; Mean Platelet Volume 8.3; Monocytes # (A) 0.3 k/uL (0-1.0); Monocytes % (A) 5 %; Neutrophils # (A) 4.1 k/uL (1.3-7.7); Neutrophils % (A) 63 %; Platelet Count 173 k/uL (150-450); RBC 4.51 m/uL (4.30-5.90); RDW 13.7 % (11.5-15.5); WBC 6.5 k/uL (3.8-10.6)
[2023-12-13] MEDS: ONDANSETRON ODT 4 MG TAB PO STA (12:44)
[2023-12-13 12:49] LABS: ALT 96 U/L (4-49); AST 153 U/L (17-59); African American GFR (CKD) 70 (>60 ml/min/1.73 sqM); Albumin 4.8 g/dL (3.5-5.0); Alkaline Phosphatase 90 U/L (38-126); Amylase 56 U/L (30-110); Anion Gap 22 mmol/L; Blood Urea Nitrogen 28 mg/dL (9-20); Calcium 9.1 mg/dL (8.4-10.2); Carbon Dioxide 17 mmol/L (22-30); Chloride 99 mmol/L (98-107); Glucose 71 mg/dL (74-99); Lipase 205 U/L (23-300); Magnesium 1.9 mg/dL (1.6-2.3); Non-African American GFR(CKD) 61 (>60 ml/min/1.73 sqM); Potassium 4.2 mmol/L (3.5-5.1); Sodium 138 mmol/L (137-145); Total Bilirubin 1.5 mg/dL (0.2-1.3); Total Protein 8.2 g/dL (6.3-8.2)
[2023-12-13 12:52] VITALS: TEMP 98.4
[2023-12-13 13:16] LABS: Alcohol 144 mg/dL
[2023-12-13 15:01] LABS: Appearance,Urine Clear (Clear); Bilirubin,Urine Negative (Negative); Blood,Urine Trace (Negative); Color,Urine Yellow; Glucose,Urine (UA) Negative (Negative); Hyaline Casts,Urine 1 /lpf (0-2); Ketones,Urine 2+ (Negative); Leukocyte Esterase,Urine Negative (Negative); Mucus,Urine Rare /hpf; Nitrite,Urine Negative (Negative); PH, Urine 5.5 (5.0-8.0); Protein,Urine 1+ (Negative); RBC,Urine <1 /hpf (0-5); Specific Gravity,Urine 1.015 (1.001-1.035); Squamous Epithelial Cell,Urine <1 /hpf (0-4); Urobilinogen,Urine <2.0 mg/dL (<2.0); WBC,Urine 1 /hpf (0-5)
[2023-12-13] MEDS: SODIUM CHLORIDE 0.9% 1,000 ML IV STA ×2 (15:07→16:27)
[2023-12-13] MEDS: ONDANSETRON 4 MG/2 ML VIAL IVP STA (15:08)
[2023-12-13] MEDS: FAMOTIDINE 20 MG/2 ML VIAL IV STA (15:08)
[2023-12-13] MEDS: METOCLOPRAMIDE 5 MG/ML 2 ML VIAL IVP STA (16:27)
[2023-12-13 18:02] LABS: Glucose,Whole Blood 53 mg/dL (70-110)
[2023-12-13 18:35] LABS: Glucose,Whole Blood 77 mg/dL (70-110)
[2023-12-13] MEDS: ONDANSETRON 4 MG ODT STARTER PACK 2 TAB BTL PO STA (19:17)
[2023-12-13 19:29] VITALS: BP 148/89; PULSE 60; RESP 18
== END 2023-12-13 19:19 | disposition home or self-care (01) ==
LOC: EC 11:43
DX: F10.20 Alcohol dependence, uncomplicated (principal); R63.0 Anorexia; R11.2 Nausea with vomiting, unspecified; E87.20 Acidosis, unspecified; R73.9 Hyperglycemia, unspecified; R00.1 Bradycardia, unspecified; I10 Essential (primary) hypertension; I25.10 Atherosclerotic heart disease of native coronary artery without angina pectoris; K21.9 Gastro-esophageal reflux disease without esophagitis; I25.2 Old myocardial infarction; E78.5 Hyperlipidemia, unspecified; Z79.899 Other long term (current) drug therapy; Z87.891 Personal history of nicotine dependence; Z95.5 Presence of coronary angioplasty implant and graft; Y90.6 Blood alcohol level of 120-199 mg/100 ml
CPT/HCPCS: 36415; 93005; 80053; 82150; 83605; 83690; 83735; 85025; 81001; 99285; 96374; 96375 ×2; 96361 ×2; G0480; J2765; J2405; J3490; S0119; 80320

== ENCOUNTER 2025-01-31 19:58 | Inpatient (IN) | payer MEDICARE ==
[2025-01-31] MEDS ORDERED: LORazepam 2 MG/ML INJ IV PRN ×3 (20:19)
[2025-01-31] MEDS: ACETAMINOPHEN TAB 500 MG TAB PO STA (20:40)
[2025-01-31] MEDS: SODIUM CHLORIDE 0.9% 1,000 ML IV STA ×2 (20:42→22:43)
[2025-01-31] MEDS: MAGNESIUM SULFATE-D5W PMX 1 GM in DEXTROSE/WATER 1 100ML.BAG IVPB ONE (20:42)
[2025-01-31] MEDS: THIAMINE 100 MG/ML 2 ML VIAL IM STA (20:46)
[2025-01-31 20:49] LABS: Basophils % (A) 0 %; Eosinophils # (A) 0.1 k/uL (0-0.7); Eosinophils % (A) 1 %; HCT 39.6 % (39.0-53.0); HGB 12.8 gm/dL (13.0-17.5); Lymphocytes % (A) 9 %; MCH 32.7 pg (25.0-35.0); MCHC 32.3 g/dL (31.0-37.0); MCV 101.3 fL (80.0-100.0); Mean Platelet Volume 8.9; Monocytes # (A) 0.3 k/uL (0-1.0); Monocytes % (A) 3 %; Neutrophils # (A) 9.4 k/uL (1.3-7.7); Neutrophils % (A) 86 %; Platelet Count 135 k/uL (150-450); RDW 13.2 % (11.5-15.5)
[2025-01-31 21:05] LABS: Partial Thromboplastin Time 20.4 sec (22.0-30.0); Prothrombin Time 11.1 sec (10.0-12.5)
[2025-01-31 21:07] LABS: African American GFR (CKD) 47 (>60 ml/min/1.73 sqM); Albumin 3.9 g/dL (3.5-5.0); Anion Gap 13 mmol/L; Blood Urea Nitrogen 39 mg/dL (9-20); Carbon Dioxide 25 mmol/L (22-30); Chloride 95 mmol/L (98-107); Glucose 118 mg/dL (74-99); Non-African American GFR(CKD) 41 (>60 ml/min/1.73 sqM); Potassium 3.8 mmol/L (3.5-5.1); Sodium 133 mmol/L (137-145)
[2025-01-31 21:08] LABS: ALT 27 U/L (4-49); AST 103 U/L (17-59); Alcohol <10 mg/dL; Alkaline Phosphatase 77 U/L (38-126); Magnesium 1.6 mg/dL (1.6-2.3); Total Bilirubin 1.2 mg/dL (0.2-1.3)
--- NOTE | 2025-01-31 21:30 | ED ---
General Adult HPI <Chidi Boyd - Last Filed: 01/31/25 23:39> - General Source: patient, EMS, RN notes reviewed, old records reviewed Mode of arrival: EMS <CarlosErnesto - Last Filed: 02/01/25 21:20> - General Chief complaint: Dizziness Stated complaint: hypotension Time Seen by Provider: 01/31/25 20:15 - History of Present Illness Initial comments: Patient is a 69-year-old male who presents manage department complaining of a near syncopal episode. History of alcohol abuse, cardiac stent, CAD, hypertension, hyperlipidemia. States he stopped drinking alcohol 3 days ago cold and has not had a drink since. He has been feeling weak and had bad shakes yesterday. States he fell a few days ago and injured his right shoulder as well as his neck. Does not believe he lost consciousness. Unknown if he is on blood thinners but does not believe so. Denies any chest pain, abdominal pain. Does endorse some right sided rib pain from the fall. Denies any fevers, chills, cough. Denies any other obvious injuries from the fall. Currently feels well. States he was standing up after he used the restroom when he was having lightheadedness. Did not actually pass out but his did bring a chair over for him to sit down. Was found to be hypotensive by EMS. Blood pressure did improve with IV fluids. Has no other acute complaints at this time. Presents for further evaluation at this time. Any chest pain at any point other than the right sided rib pain from the fall few days ago. (Ernesto Gonzalez) - Related Data Home Medications Medication Instructions Recorded Confirmed Aspirin 325 mg PO DAILY 07/31/16 02/01/25 Metoprolol Tartrate [Lopressor] 50 mg PO HS 09/05/16 02/01/25 Atorvastatin [Lipitor] 80 mg PO DAILY 01/31/22 02/01/25 Dutasteride [Avodart] 0.5 mg PO HS 01/31/22 02/01/25 Solifenacin Succinate [Vesicare] 10 mg PO HS 01/31/22 02/01/25 Tamsulosin HCl [Flomax] 0.4 mg PO BID 01/31/22 02/01/25 Pantoprazole [Protonix] 40 mg PO HS 07/06/23 02/01/25 Potassium Chloride ER [K-Dur 10] 10 meq PO DAILY 07/06/23 02/01/25 Multivitamins, Thera [Multivitamin 1 tab PO DAILY 02/01/25 02/01/25 (formulary)] Sertraline [Zoloft] 50 mg PO DAILY 02/01/25 02/01/25 Vitamin B Complex 1 cap PO DAILY 02/01/25 02/01/25 lisinopriL [Zestril] 5 mg PO DAILY 02/01/25 02/01/25 traZODone HCL [Desyrel] 50 mg PO HS 02/01/25 02/01/25 Previous Rx's Medication Instructions Recorded Folic Acid 1 mg PO DAILY tab 07/08/23 Naltrexone HCl 50 mg PO DAILY #30 tab 08/12/23 Allergies Allergy/AdvReac Type Severity Reaction Status Date / Time No Known Allergies Allergy Verified 02/01/25 07:44 Review of Systems ROS Other: All systems not noted in ROS Statement are negative. <Chidi Boyd - Last Filed: 01/31/25 23:39> ROS Other: All systems not noted in ROS Statement are negative. <Ernesto Gonzalez - Last Filed: 02/01/25 21:20> ROS Statement: Those systems with pertinent positive or pertinent negative responses have been documented in the HPI. Review of Systems: CONST: Denies fever EYES: Denies blurry vision ENT: Denies nasal congestion C/V: Endorses right sided rib pain. RESP: Denies shortness of breath GI: Denies abdominal pain : Denies dysuria SKIN: Denies rash. MSK: Endorses right shoulder pain. NEURO: Denies headache (Ernesto Gonzalez) Past Medical History Past Medical History: Coronary Artery Disease (CAD), Chest Pain / Angina, GERD/Reflux, Hyperlipidemia, Hypertension, Myocardial Infarction ([place]) Additional Past Medical History / Comment(s): Hx retinal bleed rt eye (has sx), kidney stone, has freq urination. 2013 fell, fx L1 - chronic back pain. ETOH Last Myocardial Infarction Date:: History of Any Multi-Drug Resistant Organisms: None Reported Past Surgical History: Heart Catheterization With Stent Additional Past Surgical History / Comment(s): Age 4 - surgery for cross eyes, Laser SX for Retinal bleed, Vein stripping, Cardiac stents X2, Lithotripsy x2, Colonoscopy, EGD Past Anesthesia/Blood Transfusion Reactions: No Reported Reaction Additional Past Anesthesia/Blood Transfusion Reaction / Comment(s): (Claustrophobia w/ MRI) Date of Last Stent Placement:: 2010 Past Psychological History: No Psychological Hx Reported Smoking Status: Former smoker Past Alcohol Use History: Abuse, Daily, Heavy Past Drug Use History: None Reported - Past Family History Mother Additional Family Medical History / Comment(s): ASHD- AGE 98 Father Family Medical History: Myocardial Infarction ([place]) Sister(s) Family Medical History: Cancer Additional Family Medical History / Comment(s): COLON/BOWEL CANCER. <Ernesto Gonzalez - Last Filed: 02/01/25 21:20> General Exam <Ernesto Gonzalez - Last Filed: 02/01/25 21:20> - General Exam Comments Initial Comments: General: Appears in no acute distress. No evidence of alcohol withdrawals. HEAD: Normal with no signs of head trauma. Negative Lui sign. Negative raccoon eyes. EYES: PERRLA, EOMI, conjunctiva normal, no discharge. Pupils are 3 mm and equal bilaterally. ENT: Hearing grossly intact, normal oropharynx. RESPIRATORY: Clear breath sounds bilaterally. No wheezes, rales, or rhonchi. C/V: Regular rate and rhythm. S1 and S2 auscultated, no edema, peripheral pulses 2+ and intact throughout ABD: Abd is soft, nontender, nondistended EXT: Decreased range of motion of the right shoulder secondary to pain. No obvious deformity. Tenderness to palpation of the superior aspect of the right shoulder as well as anterior lower right inferior rib. No obvious deformities present. No evidence of flail chest. No midline thoracic or lumbar spine tenderness to palpation. Mild tenderness to palpation over the right lateral cervical spine. SKIN: Bruising over the right shoulder from fall. NEURO: Alert and oriented x 4. GCS of 15. No signs of alcohol withdrawal. (Ernesto Gonzalez) Course Vital Signs 01/31/25 01/31/25 01/31/25 20:01 21:06 22:52 Temperature 97.6 F Pulse Rate 80 73 82 Respiratory 18 18 20 Rate Blood Pressure 95/53 105/67 106/84 O2 Sat by Pulse 97 100 95 Oximetry 02/01/25 02/01/25 02/01/25 01:00 03:11 05:46 Temperature Pulse Rate 65 63 63 Respiratory 18 18 18 Rate Blood Pressure 121/67 132/66 122/59 O2 Sat by Pulse 95 99 96 Oximetry 02/01/25 02/01/25 02/01/25 06:49 08:19 11:42 Temperature 97.8 F 97.7 F Pulse Rate 62 67 79 Respiratory 18 18 18 Rate Blood Pressure 119/68 129/66 110/73 O2 Sat by Pulse 95 96 95 Oximetry 02/01/25 15:45 Temperature 98 F Pulse Rate 84 Respiratory 18 Rate Blood Pressure 141/73 O2 Sat by Pulse 97 Oximetry Medical Decision Making - Lab Data Result diagrams: 01/31/25 20:40 01/31/25 20:40 <Chidi Boyd - Last Filed: 01/31/25 23:39> - Lab Data Result diagrams: 02/01/25 04:12 02/01/25 12:30 - EKG Data -: EKG Interpreted by Me <Ernesto Gonzalez - Last Filed: 02/01/25 21:20> - Medical Decision Making I received this patient as a signout pending the results of some of the studies. I did go and reevaluate the patient and he does continue to be symptom free. He is not having chest pain, dyspnea, diaphoresis, nausea or vomiting. The patient states that he does occasionally have episodes of chest pain but he does not recall having one in the past day or so. The patient again does state that he stopped drinking approximately 2 days ago had been drinking up to 1/5 of alcohol per day. In light of the finding of elevated troponin and the abnormal ECG, the patient will be admitted to have serial cardiac enzymes, telemetry monitoring, cardiology consultation but again is symptom-free at his time in the emergency department Was patient admitted / discharged? Hospital course, mention meds given and route, prescriptions, significant lab abnormalities, going to OR and other pertinent info. @ -[hospital course] Undiagnosed new problem with uncertain prognosis? @ -[No] Drug Therapy requiring intensive monitoring for toxicity (Heparin, Nitro, Insulin, Cardizem)? @ -[No] Were any procedures done? @ -[No] Diagnosis/symptom? @ -[Acute dizziness alcohol withdrawal Acute kidney injury, probably due to dehydration Elevated troponin, suspect missed [place] Acute, or Chronic, or Acute on Chronic? @ -[Acute uncomplicated Uncomplicated (without systemic symptoms) or Complicated (systemic symptoms)? @ -[ Side effects of treatment? @ -[No] Exacerbation, Progression, or Severe Exacerbation? @ -[No] Poses a threat to life or bodily function? How? (Chest pain, [place], [place], pneumonia, PE, COPD, DKA, ARF, appy, cholecystitis, CVA, Diverticulitis, Homicidal, Suicidal, threat to staff... and all critical care pts) @ -[No] All treatments are based on ideal body weight as in ED triage (Chidi Boyd) Was pt. sent in by a medical professional or institution (, PA, STONE DECORATOR, urgent care, hospital, or skilled nursing...) When possible be specific @ -No Did you speak to anyone other than the patient for history (EMS, parent, family, police, friend...)? What history was obtained from this source @ -No Did you review nursing and triage notes (agree or disagree)? Why? @ -I reviewed and agree with nursing and triage notes Were old charts reviewed (outside hosp., previous admission, EMS record, old EKG, old radiological studies, urgent care reports/EKG's, skilled nursing records)? Report findings @ -Compared with old EKG from December 2023 T wave inversions in normal 2, aVL, V4 through V6 being acute. Otherwise no obvious acute findings. Differential Diagnosis (chest pain, altered mental status, abdominal pain women, abdominal pain men, vaginal bleeding, weakness, fever, dyspnea, syncope, headache, dizziness, GI bleed, back pain, seizure, CVA, palpatations, mental health, musculoskeletal)? @ -Differential Syncope: Valvular disease, hypertrophic cardiomyopathy, pulmonary embolism, tamponade, tachycardia, bradycardia, [place], hypovolemia, hemorrhage, dissection, anemia, intracranial hemorrhage, seizure, hypoglycemia, carbon monoxide poisoning, this is not meant to be an all-inclusive list. EKG interpreted by me (3pts min.). @ -As above X-rays interpreted by me (1pt min.). @ -Pending CT interpreted by me (1pt min.). @ -Pending U/S interpreted by me (1pt. min.). @ -None done What testing was considered but not performed or refused? (CT, X-rays, U/S, labs)? Why? @ -None What meds were considered but not given or refused? Why? @ -None Did you discuss the management of the patient with other professionals (professionals i.e. Dr., PA, STONE DECORATOR, lab, RT, psych nurse, nephrology social worker, judge clerk, teacher, protective officer, medical case manager)? Give summary @ -No Was smoking cessation discussed for >3mins.? @ -No Was critical care preformed (if so, how long)? @ -No Were there social determinants of health that impacted care today? How? (Homelessness, low income, unemployed, alcoholism, drug addiction, transportation, low edu. Level, literacy, decrease access to med. care, penitentiary, rehab)? @ -No Was there de-escalation of care discussed even if they declined (Discuss DNR or withdrawal of care, Hospice)? DNR status @ -No What co-morbidities impacted this encounter? (DM, HTN, Smoking, COPD, CAD, Cancer, CVA, ARF, Chemo, Hep., AIDS, mental health diagnosis, sleep apnea, morbid obesity)? @ -None Was patient admitted / discharged? Hospital course, mention meds given and route, prescriptions, significant lab abnormalities, going to OR and other pertinent info. @ -Based on the patient's presentation and physical exam, presents emergency department complaining of what appears to be orthostatic hypotensive episode, recent alcohol cessation with no obvious signs of alcohol withdrawal, as well as some injuries to the right shoulder and right ribs from fall a few days ago. EKG upon arrival does show some T wave inversions that are diffuse that do appear acute. We will repeat EKG as well as obtain general workup. Vitals are within acceptable limits. Patient given IV magnesium, fluids, IM thiamine, as well as Tylenol. Placed on CIWA protocol. Patient signed out to Dr. Boyd pending results of workup. Undiagnosed new problem with uncertain prognosis? @ -No Drug Therapy requiring intensive monitoring for toxicity (Heparin, Nitro, Insulin, Cardizem)? @ -No Were any procedures done? @ -No (Ernesto Gonzalez) - Lab Data Lab Results 01/31/25 01/31/25 01/31/25 Range/Units 20:40 20:40 20:40 WBC 11.0 H (3.8-10.6) k/uL RBC 3.90 L (4.30-5.90) m/uL Hgb 12.8 L (13.0-17.5) gm/dL Hct 39.6 (39.0-53.0) % MCV 101.3 H (80.0-100.0) fL MCH 32.7 (25.0-35.0) pg MCHC 32.3 (31.0-37.0) g/dL RDW 13.2 (11.5-15.5) % Plt Count 135 L (150-450) k/uL MPV 8.9 Neutrophils % 86 % Lymphocytes % 9 % Monocytes % 3 % Eosinophils % 1 % Basophils % 0 % Neutrophils # 9.4 H (1.3-7.7) k/uL Lymphocytes # 1.0 (1.0-4.8) k/uL Monocytes # 0.3 (0-1.0) k/uL Eosinophils # 0.1 (0-0.7) k/uL Basophils # 0.0 (0-0.2) k/uL PT 11.1 (10.0-12.5) sec INR 1.0 (<1.2) APTT 20.4 L (22.0-30.0) sec Sodium 133 L (137-145) mmol/L Potassium 3.8 (3.5-5.1) mmol/L Chloride 95 L (98-107) mmol/L Carbon Dioxide 25 (22-30) mmol/L Anion Gap 13 mmol/L BUN 39 H (9-20) mg/dL Creatinine 1.67 H (0.66-1.25) mg/dL Est GFR (CKD-EPI)AfAm 47 (>60 ml/min/1.73 sqM) Est GFR (CKD-EPI)NonAf 41 (>60 ml/min/1.73 sqM) Glucose 118 H (74-99) mg/dL Calcium 9.0 (8.4-10.2) mg/dL Magnesium 1.6 (1.6-2.3) mg/dL Total Bilirubin 1.2 (0.2-1.3) mg/dL AST 103 H (17-59) U/L ALT 27 (4-49) U/L Alkaline Phosphatase 77 (38-126) U/L Troponin I (0.000-0.034) ng/mL Total Protein 7.0 (6.3-8.2) g/dL Albumin 3.9 (3.5-5.0) g/dL Serum Alcohol <10 mg/dL 01/31/25 01/31/25 Range/Units 20:40 23:36 WBC (3.8-10.6) k/uL RBC (4.30-5.90) m/uL Hgb (13.0-17.5) gm/dL Hct (39.0-53.0) % MCV (80.0-100.0) fL MCH (25.0-35.0) pg MCHC (31.0-37.0) g/dL RDW (11.5-15.5) % Plt Count (150-450) k/uL MPV Neutrophils % % Lymphocytes % % Monocytes % % Eosinophils % % Basophils % % Neutrophils # (1.3-7.7) k/uL Lymphocytes # (1.0-4.8) k/uL Monocytes # (0-1.0) k/uL Eosinophils # (0-0.7) k/uL Basophils # (0-0.2) k/uL PT (10.0-12.5) sec INR (<1.2) APTT (22.0-30.0) sec Sodium (137-145) mmol/L Potassium (3.5-5.1) mmol/L Chloride (98-107) mmol/L Carbon Dioxide (22-30) mmol/L Anion Gap mmol/L BUN (9-20) mg/dL Creatinine (0.66-1.25) mg/dL Est GFR (CKD-EPI)AfAm (>60 ml/min/1.73 sqM) Est GFR (CKD-EPI)NonAf (>60 ml/min/1.73 sqM) Glucose (74-99) mg/dL Calcium (8.4-10.2) mg/dL Magnesium (1.6-2.3) mg/dL Total Bilirubin (0.2-1.3) mg/dL AST (17-59) U/L ALT (4-49) U/L Alkaline Phosphatase (38-126) U/L Troponin I 1.730 H* 1.380 H* (0.000-0.034) ng/mL Total Protein (6.3-8.2) g/dL Albumin (3.5-5.0) g/dL Serum Alcohol mg/dL - EKG Data EKG Comments: 12-lead Electrocardiogram Interpretation Note EKG was reviewed and interpreted by myself. 12-lead ECG performed at 2007 is interpreted by me as revealing right bundle branch block morphology with normal sinus rhythm at a rate of 78 beats per minute. [place] is normal. ID interval is 147 ms, QRS duration 161 ms, QTc is prolonged at 577 ms. Does have diffuse T wave inversions in the lateral precordial leads V4 through V6 as well as II and aVL. No obvious ST segment abnormalities or elevations present. Possible mild depressions.T wave inversions in V2 and V3. R wave progression across the precordium was satisfactory. (Ernesto Gonzalez) Disposition <Chidi Boyd - Last Filed: 01/31/25 23:39> <Ernesto Gonzalez - Last Filed: 02/01/25 21:20> Clinical Impression: NSTEMI (non-ST elevated myocardial infarction), BAUDILIO (acute kidney injury), Alcohol withdrawal Disposition: ADMITTED IP TO THIS HOSP Condition: Serious
--- NOTE | 2025-01-31 21:42 | XR ---
EXAMINATION TYPE: XR ribs RT w pa chest xray DATE OF EXAM: 01/31/2025 9:18 PM COMPARISON: None CLINICAL INDICATION: Male, 69 years old with history of pain; PHH, pain TECHNIQUE: XR ribs RT w pa chest xray; Frontal and oblique views of the ribs with frontal chest radio graph. FINDINGS/IMPRESSION: 1. There may be 1 minimally displaced right low rib fracture. Consider further evaluation with CT if clinically warranted. 2. No acute process otherwise visualized. [facility], , 01/31/2025 9:40 PM
--- NOTE | 2025-01-31 21:43 | XR ---
EXAMINATION TYPE: XR pelvis AP view DATE OF EXAM: 01/31/2025 9:18 PM COMPARISON: None CLINICAL INDICATION: Male, 69 years old with history of pain; pain H TECHNIQUE: XR pelvis AP view, examined in a single projection. FINDINGS: There is no evidence of fracture or dislocation. Cam deformities of femoral heads. There is no soft tissue abnormality. No abnormal calcifications are present. The spine appears intact. The h ips appear intact. Osteophyte formation of the superior acetabulum bilaterally with mild joint space narrowing. Left inguinal surgical clips. Bilateral atherosclerosis of the arterial vasculature. Multi level degeneration changes of the spine. IMPRESSION: No acute osseous pathology. Mild to moderate degeneration changes of the hip. [facility], , 01/31/2025 9:41 PM
--- NOTE | 2025-01-31 21:44 | XR ---
EXAMINATION TYPE: XR shoulder complete RT DATE OF EXAM: 01/31/2025 9:18 PM COMPARISON: None CLINICAL INDICATION: Male, 69 years old with history of pain; PHH, pain TECHNIQUE: XR shoulder complete RT; examined in AP, internally rotated and scapular Y projections. FINDINGS: No evidence of acute osseous pathology, joint dislocation, or soft tissue swelling. The remaining po rtions of the visualized chest are unremarkable. Mild degeneration changes of the acromion and dista l clavicle. IMPRESSION: No acute osseous pathology. [facility], , 01/31/2025 9:42 PM
--- NOTE | 2025-01-31 21:49 | CT ---
EXAMINATION TYPE: CT brain cspine wo con DATE OF EXAM: 01/31/2025 9:29 PM COMPARISON: None. CLINICAL INDICATION: Male, 69 years old with history of syncope; Pt presents to ER via EMS. Pt had a near syncopal episode after standing from a sitting position., pain TECHNIQUE: Brain: Multiple axial CT images of the brain were obtained without IV contrast. Cspine: Axial CT images from the skull base to the inferior aspect of T2 we obtained without intraven ous contrast. Coronal and sagittal reformatted images were also reviewed. . CT DLP: 1731.7 mGycm, Automated exposure control for dose reduction was used. FINDINGS: Brain: Extra-axial spaces: No abnormal extra-axial fluid collections. Falx calcifications present. Ventricular system: Dilatation in proportion to cerebral atrophy. Cerebral parenchyma: Cerebral atrophy. No acute intraparenchymal hemorrhage or mass effect. The nuno -white junction is well differentiated. Scattered hypoattenuating areas are seen within the white mat ter. Cerebellum: Unremarkable. Mass effect: No evidence of midline shift. Intracranial vasculature: Atherosclerotic calcifications of the intracranial vessels. Soft tissues: Normal. Calvarium/osseous structures: No depressed skull fracture. Paranasal sinuses and mastoid air cells: Clear. Visualized orbits: Orbital contents are intact. Cervical spine: Fracture: None. Osseous structures: Multilevel degenerative disc disease changes with endplate spurring and disc oste ophyte complex's. Vertebral alignment: Within normal limits. Spinal canal/Neural Foramina: No evidence of significant spinal canal narrowing. No evidence for sign ificant neural foraminal stenosis. Neck soft tissues: Prevertebral soft tissues are within normal limits. Other: The airway is patent. The lung apices are clear. IMPRESSION: 1. No acute intracranial process. 2. No evidence of cervical spine fracture. 3. Moderate multilevel degenerative disc disease. [facility], , 01/31/2025 9:47 PM
[2025-01-31] MEDS: HEPARIN SODIUM 1,000 UN/ML (10ML VL) IV ONE (22:38)
[2025-01-31] MEDS: HEPARIN SOD,PORK IN 0.45% NACL 25,000 UNIT in 0.45% NACL 1 250ML.BAG IV SCH (22:39)
[2025-01-31] MEDS ORDERED: NITROGLYCERIN SL TABS 0.4 MG TAB SUBLINGUAL PRN (23:32)
[2025-01-31] MEDS ORDERED: METOCLOPRAMIDE 10 MG TAB PO PRN (23:35)
[2025-02-01 02:14] LABS: Appearance,Urine Clear (Clear); Bilirubin,Urine 1+ (Negative); Blood,Urine Negative (Negative); Color,Urine Yellow; Glucose,Urine (UA) Negative (Negative); Ketones,Urine 1+ (Negative); Leukocyte Esterase,Urine Negative (Negative); Nitrite,Urine Negative (Negative); Protein,Urine Trace (Negative); Specific Gravity,Urine 1.032 (1.001-1.035)
[2025-02-01] MEDS: MORPHINE SULFATE 4 MG/ML SYRINGE IVP PRN (03:57)
[2025-02-01 04:53] LABS: Basophils % (A) 0 %; Eosinophils % (A) 0 %; HCT 34.2 % (39.0-53.0); HGB 11.5 gm/dL (13.0-17.5); Lymphocytes # (A) 1.5 k/uL (1.0-4.8); Lymphocytes % (A) 15 %; MCH 33.6 pg (25.0-35.0); MCHC 33.8 g/dL (31.0-37.0); MCV 99.3 fL (80.0-100.0); Monocytes # (A) 0.3 k/uL (0-1.0); Monocytes % (A) 3 %; Neutrophils # (A) 8.2 k/uL (1.3-7.7); Neutrophils % (A) 81 %; Platelet Count 126 k/uL (150-450); RBC 3.44 m/uL (4.30-5.90); RDW 12.9 % (11.5-15.5); WBC 10.1 k/uL (3.8-10.6)
[2025-02-01 05:21] LABS: Partial Thromboplastin Time 31.5 sec (22.0-30.0); Prothrombin Time 11.1 sec (10.0-12.5)
[2025-02-01] MEDS: HEPARIN SODIUM 1,000 UN/ML (10ML VL) IV PRN (05:41)
[2025-02-01] MEDS: ASPIRIN 325 MG TAB PO SCH (08:23)
[2025-02-01] MEDS: ATORVASTATIN 80 MG TAB PO SCH (08:23)
[2025-02-01] MEDS: TAMSULOSIN 0.4 MG CAP.ER.24H PO SCH (08:24)
[2025-02-01] MEDS: FINASTERIDE 5 MG TAB PO SCH (08:24)
[2025-02-01] MEDS: THIAMINE 100 MG TAB PO SCH (08:25)
[2025-02-01] MEDS: lisinopriL 5 MG TAB PO SCH (08:25)
[2025-02-01] MEDS: POTASSIUM CHLORIDE ER 10 MEQ TAB.ER.PRT PO SCH (08:25)
[2025-02-01] MEDS: FOLIC ACID 1 MG TAB PO SCH (08:25)
[2025-02-01] MEDS: SERTRALINE 25 MG TAB PO SCH (08:25)
[2025-02-01] MEDS: TROSPIUM CHLORIDE 20 MG TABLET PO SCH (08:32)
[2025-02-01 08:45] LABS: LDL Cholesterol,Calculated 67.4 mg/dL (0.0-131.0)
[2025-02-01 08:46] LABS: Chol/HDL Ratio 2.13 Ratio; VLDL Calculation 14.82 mg/dL (5.00-40.00)
[2025-02-01] MEDS ORDERED: ASPIRIN 325 MG TAB PO SCH (09:00)
[2025-02-01] MEDS ORDERED: NALTREXONE HCL 50 MG TAB PO SCH ×2 (09:00→14:00)
[2025-02-01] MEDS ORDERED: amLODIPine 5 MG TAB PO SCH (09:00)
[2025-02-01] MEDS ORDERED: ACETAMINOPHEN TAB 325 MG TAB PO PRN (09:16)
--- NOTE | 2025-02-01 09:16 | P.CRDCN ---
History of Present Illness Consult date: 02/01/25 History of present illness: This is a 69-year-old gentleman who is known to our service from before with a past medical history significant for CAD with prior stenting of the LAD and known intermediate disease involving the LCx with a preserved LV systolic function as well as hypertension and dyslipidemia noncompliance and history of alcohol use. The patient presented to the hospital complaining of near syncope. No other cardiovascular symptoms of any pain in the chest or shortness of breath or any dizziness or lightheadedness or any feeling of heart racing or f luttering. He was drinking alcohol but he stopped drinking 4 days ago. He underwent further evaluation including an EKG showing sinus mechanism with T wave inversion laterally and RBBB and the troponin came to be abnormal and consistent with acute coronary syndrome. Currently he is asymptomatic. Renal function is abnormal and he is in acute on chronic renal failure. He is on lisinopril which we are going to hold. Beside that he is on aspirin and statin and anti-ischemic medications and beta-trinh. The physical examination is remarkable for regular rhythm with a soft systolic murmur at the right upper sternal border with clear beating sounds bilaterally and no edema was noted Assessment Acute non-ST elevation myocardial infarction CAD with prior stenting of the LAD Multiple comorbid conditions Acute on chronic renal failure Alcohol use Plan Continue the current medical regimen Avoid any nephrotoxic medications DC lisinopril Obtain an echocardiogram with Doppler Proceed with coronary angiogram in the next 24 to 48 hours Past Medical History Past Medical History: Coronary Artery Disease (CAD), Chest Pain / Angina, GERD/Reflux, Hyperlipidemia, Hypertension, Myocardial Infarction ([place]) Additional Past Medical History / Comment(s): Hx retinal bleed rt eye (has sx), kidney stone, has freq urination. 2012 fell, fx L1 - chronic back pain. ETOH Last Myocardial Infarction Date:: History of Any Multi-Drug Resistant Organisms: None Reported Past Surgical History: Heart Catheterization With Stent Additional Past Surgical History / Comment(s): Age 4 - surgery for cross eyes, Laser SX for Retinal bleed, Vein stripping, Cardiac stents X2, Lithotripsy x2, Colonoscopy, EGD Past Anesthesia/Blood Transfusion Reactions: No Reported Reaction Additional Past Anesthesia/Blood Transfusion Reaction / Comment(s): (Claustrophobia w/ MRI) Date of Last Stent Placement:: 2010 Past Psychological History: No Psychological Hx Reported Smoking Status: Former smoker Past Alcohol Use History: Abuse, Daily, Heavy Past Drug Use History: None Reported - Past Family History Mother Additional Family Medical History / Comment(s): ASHD- AGE 98 Father Family Medical History: Myocardial Infarction ([place]) Sister(s) Family Medical History: Cancer Additional Family Medical History / Comment(s): COLON/BOWEL CANCER. Medications and Allergies Home Medications Medication Instructions Recorded Confirmed Type Aspirin 325 mg PO DAILY 07/31/16 02/01/25 History Metoprolol Tartrate [Lopressor] 50 mg PO HS 09/05/16 02/01/25 History Atorvastatin [Lipitor] 80 mg PO DAILY 01/31/22 02/01/25 History Dutasteride [Avodart] 0.5 mg PO HS 01/31/22 02/01/25 History Solifenacin Succinate [Vesicare] 10 mg PO HS 01/31/22 02/01/25 History Tamsulosin HCl [Flomax] 0.4 mg PO BID 01/31/22 02/01/25 History Pantoprazole [Protonix] 40 mg PO HS 07/06/23 02/01/25 History Potassium Chloride ER [K-Dur 10] 10 meq PO DAILY 07/06/23 02/01/25 History Folic Acid 1 mg PO DAILY tab 07/08/23 02/01/25 Rx Naltrexone HCl 50 mg PO DAILY #30 tab 08/12/23 02/01/25 Rx Multivitamins, Thera [Multivitamin 1 tab PO DAILY 02/01/25 02/01/25 History (formulary)] Sertraline [Zoloft] 50 mg PO DAILY 02/01/25 02/01/25 History Vitamin B Complex 1 cap PO DAILY 02/01/25 02/01/25 History lisinopriL [Zestril] 5 mg PO DAILY 02/01/25 02/01/25 History traZODone HCL [Desyrel] 50 mg PO HS 02/01/25 02/01/25 History Allergies Allergy/AdvReac Type Severity Reaction Status Date / Time No Known Allergies Allergy Verified 02/01/25 07:44 Physical Exam Vitals: Vital Signs Temp Pulse Resp BP Pulse Ox 02/01/25 08:19 97.8 F 67 18 129/66 96 02/01/25 06:49 62 18 119/68 95 02/01/25 05:46 63 18 122/59 96 02/01/25 03:11 63 18 132/66 99 02/01/25 01:00 65 18 121/67 95 01/31/25 22:52 82 20 106/84 95 01/31/25 21:06 73 18 105/67 100 01/31/25 20:01 97.6 F 80 18 95/53 97 Intake and Output 01/31/25 02/01/25 02/01/25 22:59 06:59 14:59 Intake Total 56.258 Balance 56.258 Intake: Intake, IV Titration 56.258 Amount Heparin Sod,Pork in 0.45% 56.258 NaCl 25,000 unit In 0.45 % NaCl 1 250ml.bag @ 12 UNITS/KG/HR 8.056 mls/hr IV .Q24H [facility] Rx#: [id number] Other: Weight 67.132 kg Results 02/01/25 04:12 01/31/25 20:40 Cardiac Enzymes 01/31/25 01/31/25 01/31/25 Range/Units 20:40 20:40 23:36 AST 103 H (17-59) U/L Troponin I 1.730 H* 1.380 H* (0.000-0.034) ng/mL 02/01/25 Range/Units 02:51 AST (17-59) U/L Troponin I 1.220 H* (0.000-0.034) ng/mL Coagulation 01/31/25 02/01/25 Range/Units 20:40 04:12 PT 11.1 11.1 (10.0-12.5) sec APTT 20.4 L 31.5 H (22.0-30.0) sec Lipids 02/01/25 Range/Units 04:12 Triglycerides 74.10 (0.00-149.00) mg/dL Cholesterol 155.00 (0.00-200.00) mg/dL HDL Cholesterol 72.80 H (40.00-60.00) mg/dL Cholesterol/HDL Ratio 2.13 Ratio CBC 01/31/25 02/01/25 Range/Units 20:40 04:12 WBC 11.0 H 10.1 (3.8-10.6) k/uL RBC 3.90 L 3.44 L (4.30-5.90) m/uL Hgb 12.8 L 11.5 L (13.0-17.5) gm/dL Hct 39.6 34.2 L (39.0-53.0) % Plt Count 135 L 126 L (150-450) k/uL Comprehensive Metabolic Panel 01/31/25 Range/Units 20:40 Sodium 133 L (137-145) mmol/L Potassium 3.8 (3.5-5.1) mmol/L Chloride 95 L (98-107) mmol/L Carbon Dioxide 25 (22-30) mmol/L BUN 39 H (9-20) mg/dL Creatinine 1.67 H (0.66-1.25) mg/dL Glucose 118 H (74-99) mg/dL Calcium 9.0 (8.4-10.2) mg/dL AST 103 H (17-59) U/L ALT 27 (4-49) U/L Alkaline Phosphatase 77 (38-126) U/L Total Protein 7.0 (6.3-8.2) g/dL Albumin 3.9 (3.5-5.0) g/dL Current Medications Generic Name Dose Route Start Last Admin Trade Name Freq PRN Reason Stop Dose Admin Aspirin 325 mg 02/01/25 09:00 02/01/25 08:23 Aspirin 325 Mg Tab PO 325 mg DAILY [facility] Administration Atorvastatin Calcium 80 mg 02/01/25 09:00 02/01/25 08:23 Atorvastatin 80 Mg Tab PO 80 mg DAILY [facility] Administration Finasteride 5 mg 02/01/25 09:00 02/01/25 08:24 Finasteride 5 Mg Tab PO 5 mg DAILY [facility] Administration Folic Acid 1 mg 02/01/25 09:00 02/01/25 08:25 Folic Acid 1 Mg Tab PO 1 mg DAILY [facility] Administration Heparin Sodium (Porcine) 0 unit 01/31/25 22:06 02/01/25 05:41 Heparin Sodium 1,000 Un/Ml (10ml Vl) IV 1,677.5 unit PER PROTOCOL PRN Administration Low PTT Protocol Sodium Chloride 1,000 mls @ 75 mls/hr 01/31/25 20:18 01/31/25 22:43 Saline 0.9% IV 02/01/25 09:37 75 mls/hr .[id number] STA Administration Heparin Sodium/Sodium Chloride 250 mls @ 8.056 mls/hr 01/31/25 22:15 02/01/25 05:38 25,000 unit/ Sodium Chloride IV 14 units/kg/hr .Q24H [facility] 9.398 mls/hr Titration Protocol 12 UNITS/KG/HR Lorazepam 1 mg 01/31/25 20:19 Lorazepam 2 Mg/Ml Inj IV Q1HR PRN CIWA 10 to 15 Lorazepam 1 mg 01/31/25 20:19 Lorazepam 2 Mg/Ml Inj IV Q2HR PRN CIWA 8 or 9 Lorazepam 2 mg 01/31/25 20:19 Lorazepam 2 Mg/Ml Inj IV 02/02/25 20:20 Q10M PRN CIWA 16 or higher Metoprolol Tartrate 50 mg 02/01/25 21:00 Metoprolol Tartrate 50 Mg Tab PO HS [facility] Morphine Sulfate 4 mg 02/01/25 03:47 02/01/25 03:57 Morphine Sulfate 4 Mg/Ml Syringe IVP 4 mg Q4HR PRN Administration Pain Multivitamins 1 each 02/01/25 12:00 Multivitamins, Thera 1 Each Tab PO DAILY@1200 [facility] Nitroglycerin 0.4 mg 01/31/25 23:32 Nitroglycerin Sl Tabs 0.4 Mg Tab SUBLINGUAL Q5M PRN Chest Pain Pantoprazole Sodium 40 mg 02/01/25 21:00 Pantoprazole 40 Mg Tablet PO HS [facility] Potassium Chloride 10 meq 02/01/25 09:00 02/01/25 08:25 Potassium Chloride Er 10 Meq Tab.Er.Prt PO 10 meq DAILY [facility] Administration Sertraline HCl 25 mg 02/01/25 09:00 02/01/25 08:25 Sertraline 25 Mg Tab PO 25 mg DAILY [facility] Administration Tamsulosin HCl 0.4 mg 02/01/25 09:00 02/01/25 08:24 Tamsulosin 0.4 Mg Cap.Er.24h PO 0.4 mg BID [facility] Administration Thiamine HCl 100 mg 02/01/25 09:00 02/01/25 08:25 Thiamine 100 Mg Tab PO 100 mg DAILY [facility] Administration Trazodone HCl 50 mg 02/01/25 21:00 Trazodone Hcl 50 Mg Tab PO HS [facility] Trospium 20 mg 02/01/25 09:00 02/01/25 08:32 Trospium Chloride 20 Mg Tablet PO 20 mg BID [facility] Administration Intake and Output 01/31/25 02/01/25 02/01/25 22:59 06:59 14:59 Intake Total 56.258 Balance 56.258 Intake: Intake, IV Titration 56.258 Amount Heparin Sod,Pork in 0.45% 56.258 NaCl 25,000 unit In 0.45 % NaCl 1 250ml.bag @ 12 UNITS/KG/HR 8.056 mls/hr IV .Q24H [facility] Rx#: [id number] Other: Weight 67.132 kg 02/01/25 04:12 01/31/25 20:40
--- NOTE | 2025-02-01 11:42 | CA ---
Transthoracic Echo Report Name: Hayden Ruth Age: 69 Gender: M : 1955 Exam Date: 02/01/2025 09:36 Exam Location: [place] [facility] Ht (in): 72 Wt (lb): 245 Ordering Physician: Chay Claire MD Attending/Referring Phys: [employer]ology Faculty Member Darlene Man RDCS Procedure CPT: Indications: nstemi Cardiac Hx: Technical Quality: Good Contrast 1: Total Dose (mL): Contrast 2: Total Dose (mL): MEASUREMENTS (Male / Female) Normal Values 2D ECHO LV Diastolic Diameter PLAX 5.9 cm 4.2 - 5.9 / 3.9 - 5.3 cm LV Systolic Diameter PLAX 3.4 cm IVS Diastolic Thickness 1.3 cm 0.6 - 1.0 / 0.6 - 0.9 cm LVPW Diastolic Thickness 1.2 cm 0.6 - 1.0 / 0.6 - 0.9 cm LV Relative Wall Thickness 0.4 RV Internal Dim ED PLAX 4.4 cm LVOT Diameter 2.4 cm LA Systolic Diameter LX 4.0 cm 3.0 - 4.0 / 2.7 - 3.8 cm LV Diastolic Volume MOD 4C 136.5 cm??? LV Systolic Volume MOD 4C 72.8 cm??? LV Ejection Fraction MOD 4C 46.7 % LV Cardiac Index MOD 4C 1932.1 cm???/min???m??? LV Diastolic Length 4C 9.7 cm LV Systolic Length 4C 8.7 cm LV Diastolic Volume MOD 2C 174.1 cm??? LV Systolic Volume MOD 2C 89.7 cm??? LV Ejection Fraction MOD 2C 48.5 % LV Cardiac Index MOD 2C 2557.1 cm???/min???m??? LV Diastolic Length 2C 10.0 cm LV Systolic Length 2C 8.6 cm M-MODE Aortic Root Diameter MM 3.9 cm DOPPLER AV Peak Velocity 215.4 cm/s AV Peak Gradient 18.6 mmHg AV Mean Velocity 120.6 cm/s AV Mean Gradient 7.1 mmHg AV Velocity Time Integral 36.6 cm AI Peak Velocity 284.5 cm/s AI Peak Gradient 32.4 mmHg AI Pressure Half Time 1311.9 ms LVOT Peak Velocity 127.7 cm/s LVOT Peak Gradient 6.5 mmHg LVOT Velocity Time Integral 24.8 cm LVOT Stroke Volume 113.7 cm??? LVOT Stroke Volume Index 48.9 ml/m??? LVOT Cardiac Index 3443.3 cm???/min???m??? AV Area Cont Eq vti 3.1 cm??? AV Area Cont Eq pk 2.7 cm??? Mitral E Point Velocity 84.6 cm/s Mitral A Point Velocity 96.6 cm/s Mitral E to A Ratio 0.9 MV Deceleration Time 299.9 ms MV E' Velocity 8.6 cm/s Mitral E to MV E' Ratio 9.8 TR Peak Velocity 268.2 cm/s TR Peak Gradient 28.8 mmHg Right Ventricular Systolic Press 38.8 mmHg FINDINGS Left Ventricle Left ventricular ejection fraction is estimated at 45-50 %. Mildly increased septal wall thickness. Left ventricular cavity size normal. Apicl inferior hypokinesis Right Ventricle Severe right ventricular dilatation. Mild pulmonary hypertension. Right Atrium Moderate right atrial dilatation. No right atrial thrombus or mass seen. Left Atrium Mild left atrial dilatation. No left atrial thrombus or mass present. Mitral Valve Mitral valve thickened. Mitral annular calcification. Mild mitral regurgitation. Aortic Valve Trileaflet aortic valve. Aortic valve sclerosis. Mild aortic stenosis with a peak gradient of 19 mmHg and a mean gradient of 7 mmHg. Mild aortic regurgitation. Tricuspid Valve Structurally normal tricuspid valve. [id number] tricuspid regurgitation. Pulmonic Valve Structurally normal pulmonic valve. Mild pulmonic regurgitation. Pericardium No pericardial effusion. Aorta Mild aortic dilatation at the level of the sinuses of valsalva 39 mm CONCLUSIONS Mild LV systolic dysfunction Mild aortic stenosis Mild mitral regurgitation Severe right ventricular dilatation with mild pulmonary hypertension Previewed by: Dr. Washington Harris MD (Electronically Signed) Final Date: 01 February 2025 11:41
[2025-02-01] MEDS: MULTIVITAMINS, THERA 1 EACH TAB PO SCH (11:43)
[2025-02-01 13:10] LABS: African American GFR (CKD) 63 (>60 ml/min/1.73 sqM); Anion Gap 9 mmol/L; Blood Urea Nitrogen 34 mg/dL (9-20); Calcium 8.3 mg/dL (8.4-10.2); Carbon Dioxide 23 mmol/L (22-30); Chloride 101 mmol/L (98-107); Glucose 85 mg/dL (74-99); Non-African American GFR(CKD) 54 (>60 ml/min/1.73 sqM); Potassium 3.6 mmol/L (3.5-5.1); Sodium 133 mmol/L (137-145)
--- NOTE | 2025-02-01 14:00 | P.CN ---
Psychiatric Consult - . Consult date: 02/01/25 Consult:: 02/01/25 12:59 IDENTIFYING DATA: This patient is a 69-year-old male, currently he has 3 kids, lives with his in a house, collect Social Security and pension REASON FOR REFERRAL: Psychiatry was consulted for depression, EtOH HISTORY OF PRESENT ILLNESS: The patient presented to the hospital initially on 01/31 for a near syncopal episode, patient apparently has a extensive cardiac history, hypertension, alcohol use disorder. Patient had claimed that he apparently stopped using alcohol tote cold turkey about 3 or so days ago before coming into the hospital and went through withdrawal symptoms. The patient's creatinine and BUN were elevated, sodium was decreased, troponins were elevated, blood alcohol was negative. Patient had an EKG done which showed prolonged QT interval. Patient is being followed by cardiology, scheduled for a cardiac cath for tomorrow. Patient was seen laying in bed today, claims that he is doing a bit better since coming to the hospital. Claims that he relapsed on alcohol abo ut 6 or 7 months ago and has been on and off with it. Claims that he has been drinking up to 1/5 of whiskey a day. States that he stopped drinking about 2 to 3 days ago cold turkey, claims that he wanted to be done with alcohol. States that he detoxed at home and was vomiting profusely, having severe tremors. States that he had a fall at home came into the hospital. Claims that his called 911. States that he does have mild depression, mild anxiety. Claims that he does not have any paranoia, claims that he sleeps fairly about 8 hours a night, has a fair appetite. He is not endorsing much withdrawal symptoms at this time no shakes or palpitation. At this time patient denies any suicidal or homical ideations, intent or plan. Patient denies any auditory, visual hallucinations and denies any paranoia or delusions. Patients admits to using alcohol as noted above, claims that he been to rehab once several years ago, denies any other recreational drug PAST PSYCHIATRIC HISTORY: Patient has a a history of alcohol use disorder, depression anxiety. Patient is currently on Zoloft and trazodone. Patient denies any previous psychiatric hospitalizations. Patient denies any psychia tric outpatient follow-up. Patient denies any history of suicide attempts in the past. He claims that he does have access to firearms at home mainly for hunting, claims that they are locked away. Past Medical History: Coronary Artery Disease (CAD), Chest Pain / Angina, GERD/Reflux, Hyperlipidemia, Hypertension, Myocardial Infarction ([place]) Additional Past Medical History / Comment(s): Hx retinal bleed rt eye (has sx), kidney stone, has freq urination. 2013 fell, fx L1 - chronic back pain. ETOH Last Myocardial Infarction Date:: 3-2010 History of Any Multi-Drug Resistant Organisms: None Reported Past Surgical History: Heart Catheterization With Stent Additional Past Surgical History / Comment(s): Age 4 - surgery for cross eyes, Laser SX for Retinal bleed, Vein stripping, Cardiac stents X2, Lithotripsy x2, Colonoscopy, EGD Past Anesthesia/Blood Transfusion Reactions: No Reported Reaction Additional Past Anesthesia/Blood Transfusion Reaction / Comment(s): (Claustrophobia w/ MRI) Date of Last Stent Placement:: 2010 Past Psychological History: No Psychological Hx Reported Smoking Status: Former smoker Past Alcohol Use History: Abuse, Daily, Heavy Past Drug Use History: None Reported ALLERGIES: as per EMR. CHEMICAL DEPENDENCY HISTORY: as per HPI. FAMILY PSYCHIATRIC/SUBSTANCE USE HISTORY: States that his son has PTSD SOCIAL HISTORY: Patient was born and raised in [place] and moved to [facility]. 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 He is currently he has 3 kids he lives with his in a house, he collect Social Security plus a small pension. Denies any legal history. MENTAL STATUS EXAM: General Appearance: Patient appears to be overweight, has a alvarez, wearing glasses, some tattoos on his arm, stated age is alert, attempts to cooperate. Patient appears to have fair hygiene and grooming wearing hospital gown with fair eye contact. No tremors Behavior: Patient is calmly lying in bed without any agitated behavior. Attempts to cooperate Speech: Patient's speech is fluent and nonpressured. Hesitant at times Mood/Affect: Patient reports their mood is "a bit better now", affect is congr uent and constricted Suicidality/Homicidality: Patient denies having any suicidal or homicidal ideation intent or plan. Perceptions: Patient denies any visual hallucinations and denies any auditory hallucinations Though content/process: There is no evidence of any delusional thought content and thought process is linear and goal-directed. Memory and concentration: AOX3, grossly intact for the purposes of this session. Can spell "WORLD" backwards Judgment and insight: Fair IMPRESSIONS: Depressive disorder unspecified Alcohol use disorder severe dependence, currently in withdrawal PLAN: -At this time patient DOES NOT meet criteria for inpatient psychiatric admission. -Would recommend the following medication changes/additions: Patient was requesting to be restarted back on naltrexone for alcohol cravings, will start 50 mg daily. He was warned about the potential interaction with opiates, he verbally understood and agreed. Increase Zoloft to 50 mg daily for mood/anxiety, trazodone 50 mg nightly for insomnia/ -CIWA protocol with PRN Ativan for alcohol withdrawal. Continue to monitor vital signs. -wind up worker to provide patient with outpatient mental health/psychiatry resources for appropriate follow up upon discharge -[employer] Supervisor spoke with patient about substance abuse and the harmful effects on medical and mental health, patient verbally understood and agreed. -wind up worker to provide patient substance use treatment resources including AA/NA meetings in the community. -wind up worker to provide patient with access line number to call for inpatient substance rehab -Communicated plan to patient's nurse -Psychiatry will sign off at this time -Please contact with any questions. 02/01/25 13:53 02/01/25 13:59
[2025-02-01] MEDS: SERTRALINE 25 MG TAB PO STA (15:44)
--- NOTE | 2025-02-01 18:49 | P.HPIM ---
History of Present Illness H&P Date: 02/01/25 Chief Complaint: Non-ST elevation PA/alcohol withdrawal HISTORY OF PRESENT ILLNESS: This is a 69-year-old male with a previous medical history significant for hypertension and hypertensive cardiovascular disease, hyperlipidemia, history of enlarged prostate, GERD with esophagitis, history of coronary artery disease status post percutaneous coronary intervention currently under cardiology care, history of enlarged prostate, detrusor instability, osteoporosis, chronic al cohol use and dependence. Patient has not been seen in the office for almost 2 years last time was seen in the hospital after he was admitted for what appears to be an alcohol intoxication with impending delirium tremens, and he was discharged home at that time, was supposed to follow-up with me as an outpatient, patient apparently presented to the emergency department at [facility] yesterday with generalized weakness and feeling shaky apparently had stopped drinking alcohol 3 days ago, he had fallen and had a near syncopal episode, he stated that he injured his right shoulder, and neck, patient did have a battery of testing the emergency department including CT scan of the cervical spine that did not show evidence of acute abnormalities, he also did have a right shoulder x-ray did not show evidence of acute abnormalities, he did have evidence of degenerative disc disease of the cervical spine without fracture, his x-rays of the ribs showed possible minimally displaced lower rib fracture, patient also was found to have an elevated troponin of 0.2, repeated troponin was positive at 1.3 and the last 1 was 1.7 patient is ruled in for non- ST elevation myocardial infarction, he was admitted to the hospital for evaluation by cardiology further recommendations to follow REVIEW OF SYSTEMS: Constitutional: No documented fever, no chills, no night sweats. No weight change. positive for weakness, fatigue or lethargy. No daytime sleepiness. HEENT: No headache. No blurred vision or double vision, no loss of vision. No loss of Hearing, no ringing in the ears, no dizziness. No nasal drainage or congestion. No epistaxis. No sore throat. Lungs: No shortness of breath, no cough, no sputum production. No wheezing. Reports dyspnea with activity. Cardiovascular: No chest pain, no lower extremity edema. No palpitations. No paroxysmal nocturnal dyspnea. No orthopnea. No lightheadedness or dizziness. No syncopal episodes. Abdominal: Reports abdominal pain. positive for nausea, no vomiting. No diarrhea. No constipation. No bloody or tarry stools reports loss of appetite. Genitourinary: No dysuria, increased frequency, urgency. No urinary retention. Musculoskeletal: No myalgias. Positive muscle weakness, no gait dysfunction, positive for frequent falls. Positive for back pain. Positive for neck pain. Integumentary: No wounds, no lesions. No rash or pruritus. positive for bruising. No change in hair or nails. Neurologic: No aphasia. No facial droop. No change in mentation. No head injury. No headache. No paralysis. No paresthesia. Psychiatric: positive for depression. No anxiety. No mood swings. Endocrine: No abnormal blood sugars. No weight change. PAST MEDICAL HISTORY: Hypertension and hypertensive cardiovascular disease. Hyperlipidemia. Coronary artery disease status post PCI. Enlarged prostate. Detrusor instability. GERD with esophagitis Chronic alcohol use and dependence. Depression. PAST SURGICAL HISTORY: Left heart catheterization with PCI of the LAD 2013 Colonoscopy 2004 Left kidney stone Eye surgery for squint Colonoscopy 02/05/2022. SOCIAL HISTORY: Patient used to smoke about a pack every day since the age of 15 and he quit in 2013, patient drinks at least a fifth of whiskey on a daily basis, he denies any drug use or abuse. Lives with his . FAMILY HISTORY: Father at age of 70 from [place] he also had history of hypertension and rheumatoid arthritis, mother at age of 98 from old age, patient has one brother 75-year-old no health issues, patient had a sister who at the age of 50 from colon cancer, patient has one son 37-year-old lives with him, and patient has 2 daughters no major current problems. PHYSICAL EXAMINATION: General: 69-year-old male laying down in bed in no apparent distress. HEENT: Head is atraumatic, normocephalic, pupils were equal round reactive to l ight and recommendation, extraocular muscle movement were intact, sclera nonicteric, conjunctivae were pale, mucous membranes of the mouth are somewhat dry. Neck: Supple, no JVP, normal carotid upstroke bilaterally, no lymphadenopathy. Chest: Decreased breath sounds at the bases, few rhonchi, no expiratory wheezes, for right lower chest wall tenderness, no intercostal retractions. Heart: First heart sound is normal, second heart sounds normal there is CHEL 2/6 located at the left sternal border. Abdomen: Soft, nontender, nondistended, positive bowel sounds. Extremities: There is no edema no calf tenderness DP +2 bilaterally. Neurologic examination: Patient is drowzy opens his eyes in response to verbal stimuli cranial nerves II-12 appear grossly intact, muscle power were 5 out of 5 in upper extremities and 5 out of 5 in bilateral lower extremities, deep tendon reflexes normal bilaterally. ASSESSMENT AND PLAN: 1. Non-ST elevation PA patient did have a prior history of CAD post PCI, c ontinue heparin drip for now, continue aspirin 325 mg once every day, continue metoprolol 50 mg at bedtime, continue atorvastatin 80 mg orally once every day. Cardiology consultation, echocardiogram will be obtained. 2. Chronic alcohol use and dependence with impending alcohol withdrawal/DT. Start the patient on a CIWA protocol, monitor the patient very closely, continue patient on thiamine, continue patient on IV fluid resuscitation, continue to monitor the patient very closely. Consider psych evaluation. 3. Near syncope status post CT scan of the cervical spine as well as x-rays of the right ribs as well as right shoulder no evidence of fracture continue current treatment plan. 4. Chronic alcohol use and dependence. Patient will need to be counseled about alcoholism consider psych evaluation again. 5. Macrocytosis with alcoholic induced hepatitis. Continue with folic acid 1 mg once every day, continue with thiamine 100 mg once every day, monitor the patient's symptoms very closely. 6. Hypertension and hypertensive cardiovascular disease. Continue patient on metoprolol ER 50 mg at bedtime, as well as lisinopril 5 mg orally once every day, amlodipine 5 milligrams orally once every day, monitor the patient blood pressure very closely. 7. Coronary artery disease status post PCI of the LAD 2013. Continue patient on metoprolol ER 50 mg once every day, continue aspirin 325 mg once every day, continue atorvastatin 80 mg once every day. 8. Mixed hyperlipidemia. Continue patient on atorvastatin 80 mg once every day. 9. Enlarged prostate. Continue patient on Flomax 0.4 mg once every day as well as finasteride 5 mg orally once every day for 10. Major depressive disorder. Continue patient on sertraline 25 mg orally once every day. 12. Admitted to inpatient. Estimate a length of stay 2 midnights. Full code. Past Medical History Past Medical History: Coronary Artery Disease (CAD), Chest Pain / Angina, GERD/ Reflux, Hyperlipidemia, Hypertension, Myocardial Infarction (PA) Additional Past Medical History / Comment(s): Hx retinal bleed rt eye (has sx), kidney stone, has freq urination. 2013 fell, fx L1 - chronic back pain. ETOH Last Myocardial Infarction Date:: History of Any Multi-Drug Resistant Organisms: None Reported Past Surgical History: Heart Catheterization With Stent Additional Past Surgical History / Comment(s): Age 4 - surgery for cross eyes, Laser SX for Retinal bleed, Vein stripping, Cardiac stents X2, Lithotripsy x2, Colonoscopy, EGD Past Anesthesia/Blood Transfusion Reactions: No Reported Reaction Additional Past Anesthesia/Blood Transfusion Reaction / Comment(s): (Claustrophobia w/ MRI) Date of Last Stent Placement:: 2010 Past Psychological History: No Psychological Hx Reported Smoking Status: Former smoker Past Alcohol Use History: Abuse, Daily, Heavy Past Drug Use History: None Reported - Past Family History Mother Additional Family Medical History / Comment(s): ASHD- AGE 98 Father Family Medical History: Myocardial Infarction ([place]) Sister(s) Family Medical History: Cancer Additional Family Medical History / Comment(s): COLON/BOWEL CANCER. Medications and Allergies Home Medications Medication Instructions Recorded Confirmed Type Aspirin 325 mg PO DAILY 07/31/16 08/10/23 History Metoprolol Tartrate [Lopressor] 50 mg PO HS 09/05/16 08/10/23 History amLODIPine [Norvasc] 5 mg PO DAILY 04/15/18 08/10/23 History lisinopriL [Zestril] 5 mg PO DAILY 04/15/18 08/10/23 History Atorvastatin [Lipitor] 80 mg PO DAILY 01/31/22 08/10/23 History Dutasteride [Avodart] 0.5 mg PO DAILY 01/31/22 08/10/23 History Solifenacin Succinate [Vesicare] 10 mg PO HS 01/31/22 08/10/23 History Tamsulosin HCl [Flomax] 0.4 mg PO BID 01/31/22 08/10/23 History Pantoprazole [Protonix] 40 mg PO HS 07/06/23 08/10/23 History Potassium Chloride ER [K-Dur 10] 10 meq PO DAILY 07/06/23 08/10/23 History Folic Acid 1 mg PO DAILY tab 07/08/23 08/10/23 Rx Thiamine [Vitamin B-1] 100 mg PO DAILY tab 07/08/23 08/10/23 Rx Multivitamins, Thera [Multivitamin 1 each PO DAILY@1200 tab 08/12/23 Rx (formulary)] Naltrexone HCl 50 mg PO DAILY #30 tab 08/12/23 Rx Sertraline [Zoloft] 25 mg PO DAILY #30 tablet 08/12/23 Rx traZODone HCL [Desyrel] 25 mg PO HS #30 tab 08/12/23 Rx Metoclopramide [Reglan] 10 mg PO Q6H PRN #20 tab 12/13/23 Rx Allergies Allergy/AdvReac Type Severity Reaction Status Date / Time No Known Allergies Allergy Verified 01/31/25 20:06 Physical Exam Vitals: Vital Signs Temp Pulse Resp BP Pulse Ox 02/01/25 06:49 62 18 119/68 95 02/01/25 05:46 63 18 122/59 96 02/01/25 03:11 63 18 132/66 99 02/01/25 01:00 65 18 121/67 95 01/31/25 22:52 82 20 106/84 95 01/31/25 21:06 73 18 105/67 100 01/31/25 20:01 97.6 F 80 18 95/53 97 Intake and Output 01/31/25 02/01/25 02/01/25 22:59 06:59 14:59 Intake Total 56.258 Balance 56.258 Intake: Intake, IV Titration 56.258 Amount Heparin Sod,Pork in 0.45% 56.258 NaCl 25,000 unit In 0.45 % NaCl 1 250ml.bag @ 12 UNITS/KG/HR 8.056 mls/hr IV .Q24H [facility] Rx#: [id number] Other: Weight 67.132 kg Results CBC & Chem 7: 02/01/25 04:12 01/31/25 20:40 Labs: Abnormal Lab Results - Last 24 Hours (Table) 01/31/25 01/31/25 01/31/25 Range/Units 20:40 20:40 20:40 WBC 11.0 H (3.8-10.6) k/uL RBC 3.90 L (4.30-5.90) m/uL Hgb 12.8 L (13.0-17.5) gm/dL Hct (39.0-53.0) % MCV 101.3 H (80.0-100.0) fL Plt Count 135 L (150-450) k/uL Neutrophils # 9.4 H (1.3-7.7) k/uL APTT 20.4 L (22.0-30.0) sec Sodium 133 L (137-145) mmol/L Chloride 95 L (98-107) mmol/L BUN 39 H (9-20) mg/dL Creatinine 1.67 H (0.66-1.25) mg/dL Glucose 118 H (74-99) mg/dL AST 103 H (17-59) U/L Troponin I (0.000-0.034) ng/mL Urine Protein (Negative) Urine Ketones (Negative) Urine Bilirubin (Negative) 01/31/25 01/31/25 02/01/25 Range/Units 20:40 23:36 01:49 WBC (3.8-10.6) k/uL RBC (4.30-5.90) m/uL Hgb (13.0-17.5) gm/dL Hct (39.0-53.0) % MCV (80.0-100.0) fL Plt Count (150-450) k/uL Neutrophils # (1.3-7.7) k/uL APTT (22.0-30.0) sec Sodium (137-145) mmol/L Chloride (98-107) mmol/L BUN (9-20) mg/dL Creatinine (0.66-1.25) mg/dL Glucose (74-99) mg/dL AST (17-59) U/L Troponin I 1.730 H* 1.380 H* (0.000-0.034) ng/mL Urine Protein Trace H (Negative) Urine Ketones 1+ H (Negative) Urine Bilirubin 1+ H (Negative) 02/01/25 02/01/25 02/01/25 Range/Units 02:51 04:12 04:12 WBC (3.8-10.6) k/uL RBC 3.44 L (4.30-5.90) m/uL Hgb 11.5 L (13.0-17.5) gm/dL Hct 34.2 L (39.0-53.0) % MCV (80.0-100.0) fL Plt Count 126 L (150-450) k/uL Neutrophils # 8.2 H (1.3-7.7) k/uL APTT 31.5 H (22.0-30.0) sec Sodium (137-145) mmol/L Chloride (98-107) mmol/L BUN (9-20) mg/dL Creatinine (0.66-1.25) mg/dL Glucose (74-99) mg/dL AST (17-59) U/L Troponin I 1.220 H* (0.000-0.034) ng/mL Urine Protein (Negative) Urine Ketones (Negative) Urine Bilirubin (Negative)
[2025-02-01] MEDS: METOPROLOL TARTRATE 50 MG TAB PO SCH (20:07)
[2025-02-01] MEDS: traZODone HCL 50 MG TAB PO SCH (20:07)
[2025-02-01] MEDS: PANTOPRAZOLE 40 MG TABLET PO SCH (20:07)
[2025-02-01] MEDS ORDERED: traZODone HCL 50 MG TAB PO SCH (21:00)
[2025-02-02] MEDS ORDERED: LORazepam 1 MG/0.5 ML VIAL IV PRN ×3 (00:38→00:49)
[2025-02-02] MEDS: SODIUM CHLORIDE 0.9% 1,000 ML in EMPTY BAG 1 BAG IV SCH (00:47)
[2025-02-02 02:44] LABS: Basophils % (A) 0 %; Eosinophils # (A) 0.2 k/uL (0-0.7); Eosinophils % (A) 2 %; HCT 34.9 % (39.0-53.0); HGB 11.9 gm/dL (13.0-17.5); Lymphocytes # (A) 2.1 k/uL (1.0-4.8); Lymphocytes % (A) 26 %; MCH 34.3 pg (25.0-35.0); MCHC 34.1 g/dL (31.0-37.0); MCV 100.7 fL (80.0-100.0); Mean Platelet Volume 8.3; Monocytes # (A) 0.4 k/uL (0-1.0); Monocytes % (A) 5 %; Neutrophils # (A) 5.1 k/uL (1.3-7.7); Neutrophils % (A) 64 %; Platelet Count 141 k/uL (150-450); RBC 3.47 m/uL (4.30-5.90); RDW 13.2 % (11.5-15.5)
[2025-02-02 03:10] LABS: ALT 19 U/L (4-49); AST 50 U/L (17-59); African American GFR (CKD) 79 (>60 ml/min/1.73 sqM); Albumin 3.1 g/dL (3.5-5.0); Alkaline Phosphatase 66 U/L (38-126); Anion Gap 5 mmol/L; Blood Urea Nitrogen 26 mg/dL (9-20); Calcium 8.4 mg/dL (8.4-10.2); Carbon Dioxide 24 mmol/L (22-30); Chloride 103 mmol/L (98-107); Glucose 83 mg/dL (74-99); Magnesium 1.8 mg/dL (1.6-2.3); Non-African American GFR(CKD) 68 (>60 ml/min/1.73 sqM); Sodium 132 mmol/L (137-145); Total Bilirubin 0.8 mg/dL (0.2-1.3); Total Protein 5.8 g/dL (6.3-8.2)
[2025-02-02] MEDS: SERTRALINE 50 MG TAB PO SCH (05:45)
[2025-02-02] MEDS: NALTREXONE HCL 50 MG TAB PO SCH (06:34)
[2025-02-02] MEDS ORDERED: HEPARIN SODIUM,PORCINE 10,000 UNIT in SODIUM CHLORIDE 0.9% 1,000 ML IRRIGATION PRN (07:00)
[2025-02-02] MEDS ORDERED: HEPARIN SODIUM,PORCINE (1 ML) 2,500 UNIT in SODIUM CHLORIDE 0.9% 250 ML IRRIGATION PRN (07:00)
--- NOTE | 2025-02-02 07:23 | P.PN ---
Subjective Progress Note Date: 02/02/25 This is a 69-year-old gentleman who is known to our service from before with a past medical history significant for CAD with prior stenting of the LAD and known intermediate disease involving the LCx with a preserved LV systolic function as well as hypertension and dyslipidemia noncompliance and history of alcohol use. The patient presented to the hospital complaining of near syncope. No other cardiovascular symptoms of any pain in the chest or shortness of breath or any dizziness or lightheadedness or any feeling of heart racing or fluttering. He was drinking alcohol but he stopped drinking 4 days ago. He underwent further evaluation including an EKG showing sinus mechanism with T wave inversion laterally and RBBB and the troponin came to be abnormal and consistent with acute coronary syndrome. Currently he is asymptomatic. Renal function is abnormal and he is in acute on chronic renal failure. He is on lisinopril which we are going to hold. Beside that he is on aspirin and statin and anti-ischemic medications and beta-trinh. The physical examination is remarkable for regular rhythm with a soft systolic murmur at the right upper sternal border with clear beating sounds bilaterally and no edema was noted February 02, 2025 The patient was seen and evaluated this morning and he is asymptomatic and hemodynamically stable. He underwent an echo which revealed mildly impaired LV function with EF around 45% to 50%. The plan is to pursue with a heart catheterization today. The physical examination is remarkable for regular rhythm with a soft systolic murmur and clear breathing sounds bilaterally and no edema was noted Assessment Acute non-ST elevation myocardial infarction CAD with prior stenting of the LAD Multiple comorbid conditions Acute on chronic renal failure Alcohol use Plan Continue the current medical regimen Avoid any nephrotoxic medications Proceed with coronary angiogram later on today Objective - Vital Signs Vital signs: Vital Signs Temp 97.9 F 02/02/25 04:46 Pulse 69 02/02/25 04:46 Resp 16 02/02/25 04:46 BP 149/89 02/02/25 04:46 Pulse Ox 95 02/02/25 04:46 FiO2 Intake & Output 02/01/25 02/02/25 02/02/25 18:59 06:59 18:59 Intake Total 68.292 125.450 Output Total 300 Balance 68.292 -174.550 Weight 67.132 kg 106 kg Intake: Intake, IV Titration 68.292 125.450 Amount Heparin Sod,Pork in 0.45% 68.292 125.450 NaCl 25,000 unit In 0.45 % NaCl 1 250ml.bag @ 12 UNITS/KG/HR 8.056 mls/hr IV .Q24H [facility] Rx#: [id number] Output: Urine 300 Other: Voiding Method Toilet Toilet # Voids 1 - Labs CBC & Chem 7: 02/02/25 02:09 02/02/25 02:09 Labs: Abnormal Lab Results - Last 24 Hours (Table) 02/01/25 02/01/25 02/01/25 Range/Units 04:12 11:38 12:30 RBC (4.30-5.90) m/uL Hgb (13.0-17.5) gm/dL Hct (39.0-53.0) % MCV (80.0-100.0) fL Plt Count (150-450) k/uL APTT 35.6 H (22.0-30.0) sec Sodium 133 L (137-145) mmol/L BUN 34 H (9-20) mg/dL Creatinine 1.32 H (0.66-1.25) mg/dL Calcium 8.3 L (8.4-10.2) mg/dL Total Protein (6.3-8.2) g/dL Albumin (3.5-5.0) g/dL HDL Cholesterol 72.80 H (40.00-60.00) mg/dL 02/01/25 02/02/25 02/02/25 Range/Units 18:54 02:09 02:09 RBC 3.47 L (4.30-5.90) m/uL Hgb 11.9 L (13.0-17.5) gm/dL Hct 34.9 L (39.0-53.0) % MCV 100.7 H (80.0-100.0) fL Plt Count 141 L (150-450) k/uL APTT 36.1 H (22.0-30.0) sec Sodium 132 L (137-145) mmol/L BUN 26 H (9-20) mg/dL Creatinine (0.66-1.25) mg/dL Calcium (8.4-10.2) mg/dL Total Protein 5.8 L (6.3-8.2) g/dL Albumin 3.1 L (3.5-5.0) g/dL HDL Cholesterol (40.00-60.00) mg/dL 02/02/25 Range/Units 02:09 RBC (4.30-5.90) m/uL Hgb (13.0-17.5) gm/dL Hct (39.0-53.0) % MCV (80.0-100.0) fL Plt Count (150-450) k/uL APTT 42.6 H (22.0-30.0) sec Sodium (137-145) mmol/L BUN (9-20) mg/dL Creatinine (0.66-1.25) mg/dL Calcium (8.4-10.2) mg/dL Total Protein (6.3-8.2) g/dL Albumin (3.5-5.0) g/dL HDL Cholesterol (40.00-60.00) mg/dL
[2025-02-02] MEDS: LIDOCAINE 1% INJ 10MG/ML (20 ML MDV) SQ ONE (10:12)
[2025-02-02] MEDS: MIDAZOLAM 2 MG/2 ML VIAL IVP ONE ×2 (10:15→10:39)
[2025-02-02] MEDS: fentaNYL (PF) 50 MCG/ML 2 ML AMP IVP ONE (10:15)
[2025-02-02] MEDS: VERAPAMIL SYRINGE (5 MG/10 ML) INTRAARTER ONE (10:16)
[2025-02-02] MEDS: HEPARIN SODIUM 1,000 UN/ML (10ML VL) IVP ONE (10:17)
[2025-02-02] MEDS: MORPHINE SULFATE 4 MG/ML SYRINGE IVP ONE (10:21)
[2025-02-02] MEDS: IV FLUID CONTINUATION 600 ML IV ONE (10:41)
[2025-02-02] MEDS: IOPAMIDOL-370 100ML BTL IVP ONE ×2 (10:41)
[2025-02-02] MEDS ORDERED: RX INFO: IV CONTRAST WAS GIVEN 1 EACH MISC MISCELLANE PRN (10:47)
--- NOTE | 2025-02-02 10:50 | P.PCN ---
Date of Procedure: 02/02/25 Operative Findings: CARDIAC CATHETERIZATION PERFORMING PHYSICIAN: Jayson Lopez MD, RPVI PROCEDURE PERFORMED: 1. Selective right and left coronary angiogram and IFR of the RCA 2. Left heart catheterization 3. Ultrasound-guided access of the right radial artery INDICATION: Acute non-ST elevation myocardial infarction COMPLICATION: None APPROACH: Right radial artery LEVEL OF SEDATION: Moderate with a sedation length of 22 minutes PROCEDURE DESCRIPTION: After obtaining an informed consent, the patient was brought to cardiac laboratory courier. Local anesthesia was performed using lidocaine subcutaneously. The right radial artery was cannulated using Seldinger technique, under ultrasound guidance, the guidewire passed easily, following that we advanced a 5-Polish sheath dilator assembly, the wire and dilator were removed and sheath was flushed. Following that, 2 mg of verapamil along with 5000 unit heparin were given. Selective right and left coronary angiogram using a 5-Polish JR4 and JL 3.5 catheters. Following that we did left heart catheterization using the JR4 catheter After that we decided to do an IFR of the RCA after zeroing the Doppler wire and equalized in between the Dobler wire and guiding catheter which was JR4 guiding catheter the RCA was engaged and subsequently it was wired with IFR came to be at 0.90. The procedure was completed there was no complication. SELECTIVE CORONARY ANGIOGRAM: The right coronary artery: Large-caliber vessel and a dominant vessel with patent stent in the mid RCA and intermediate disease involving the proximal RCA documented to be nonflow- limiting by Doppler wire Left main: Has mild disease only The left circumflex: Large-caliber vessel nondominant vessel with no evidence of high-grade stenosis The left anterior descending artery: Large caliber vessel with patent stent in the proximal LAD and intermediate disease involving a diagonal branch about 2.5 mm HEMODYNAMICS: The LVEDP was about 5 mmHg with no significant gradient across aortic valve CONCLUSION: 1. Patent stent in the mid RCA. Intermediate disease involving the proximal RCA documented to be nonflow-limiting by Doppler wire 2. Patent stent in the proximal LAD. Intermediate disease involving a diagonal branch POSTPROCEDURE MANAGEMENT: Consider dual antiplatelet therapy for 12-month Medical treatment and follow-up with the patient
[2025-02-02] MEDS: SODIUM CHLORIDE 0.9% 1,000 ML IV SCH (12:30)
--- NOTE | 2025-02-02 15:33 | P.PN ---
Subjective Progress Note Date: 02/02/25 HISTORY OF PRESENT ILLNESS: This is a 69-year-old male with a previous medical history significant for hy pertension and hypertensive cardiovascular disease, hyperlipidemia, history of enlarged prostate, GERD with esophagitis, history of coronary artery disease status post percutaneous coronary intervention currently under cardiology care, history of enlarged prostate, detrusor instability, osteoporosis, chronic alcohol use and dependence. Patient has not been seen in the office for almost 2 years last time was seen in the hospital after he was admitted for what appears to be an alcohol intoxication with impending delirium tremens, and he was discharged home at that time, was supposed to follow-up with me as an outpatient, patient apparently presented to the emergency department at [facility] yesterday with generalized weakness and feeling shaky apparently had stopped drinking alcohol 3 days ago, he had fallen and had a near syncopal episode, he stated that he injured his right shoulder, and neck, patient did have a battery of testing the emergency department including CT scan of the cervical spine that did not show evidence of acute abnormalities, he also did have a right shoulder x-ray did not show evidence of acute abnormalities, he did have evidence of degenerative disc disease of the cervical spine without fracture, his x-rays of the ribs showed possible minimally displaced lower rib fracture, patient also was found to have an elevated troponin of 0.2, repeated troponin was positive at 1.3 and the last 1 was 1.7 patient is ruled in for non- ST elevation myocardial infarction, he was admitted to the hospital for evaluation by cardiology further recommendations to follow 02/02: Patient sitting up in bed in no apparent distress, he denies any chest pain at this time, he has no shortness of breath, he was seen yesterday in consultation by cardiology recommended to go for left heart catheterization today., he denies any abdominal pain, nausea vomiting or diarrhea, he was seen already in consultation by psychiatry, recommended continue current treatment plan, we will follow-up with the patient very closely. REVIEW OF SYSTEMS: Constitutional: No documented fever, no chills, no night sweats. No weight change. positive for weakness, fatigue or lethargy. No daytime sleepiness. HEENT: No headache. No blurred vision or double vision, no loss of vision. No loss of Hearing, no ringing in the ears, no dizziness. No nasal drainage or congestion. No epistaxis. No sore throat. Lungs: No shortness of breath, no cough, no sputum production. No wheezing. Reports dyspnea with activity. Cardiovascular: No chest pain, no lower extremity edema. No palpitations. No paroxysmal nocturnal dyspnea. No orthopnea. No lightheadedness or dizziness. No syncopal episodes. Abdominal: Reports abdominal pain. positive for nausea, no vomiting. No diarrhea. No constipation. No bloody or tarry stools reports loss of appetite. Genitourinary: No dysuria, increased frequency, urgency. No urinary retention. Musculoskeletal: No myalgias. Positive muscle weakness, no gait dysfunction, positive for frequent falls. Positive for back pain. Positive for neck pain. Integumentary: No wounds, no lesions. No rash or pruritus. positive for bruising. No change in hair or nails. Neurologic: No aphasia. No facial droop. No change in mentation. No head injury. No headache. No paralysis. No paresthesia. Psychiatric: positive for depression. No anxiety. No mood swings. Endocrine: No abnormal blood sugars. No weight change. PHYSICAL EXAMINATION: General: 69-year-old male laying down in bed in no apparent distress. HEENT: Head is atraumatic, normocephalic, pupils were equal round reactive to light and recommendation, extraocular muscle movement were intact, sclera nonicteric, conjunctivae were pale, mucous membranes of the mouth are somewhat dry. Neck: Supple, no JVP, normal carotid upstroke bilaterally, no lymphadenopathy. Chest: Decreased breath sounds at the bases, few rhonchi, no expiratory wheezes, for right lower chest wall tenderness, no intercostal retractions. Heart: First heart sound is normal, second heart sounds normal there is CHEL 2/6 located at the left sternal border. Abdomen: Soft, nontender, nondistended, positive bowel sounds. Extremities: There is no edema no calf tenderness DP +2 bilaterally. Neurologic examination: Patient is drowzy opens his eyes in response to verbal stimuli cranial nerves II-12 appear grossly intact, muscle power were 5 out of 5 in upper extremities and 5 out of 5 in bilateral lower extremities, deep tendon reflexes normal bilaterally. ASSESSMENT AND PLAN: 1. Non-ST elevation HI patient did have a prior history of CAD post PCI, continue heparin drip for now, continue aspirin 325 mg once every day, continue metoprolol 50 mg at bedtime, continue atorvastatin 80 mg orally once every day. Cardiology consultation, echocardiogram will be obtained. 2. Acute kidney injury due to acute tubular necrosis and vasomotor nephropathy. Lisinopril was discontinued, start the patient on IV fluid resuscitation the form of normal saline at 75 cc an hour repeat CMP in the next 24 hours avoid nephrotoxins. GFR is much better today. 3. Chronic alcohol use and dependence with impending alcohol withdrawal/DT. Start the patient on a CIWA protocol, monitor the patient very closely, continue patient on thiamine, continue patient on IV fluid resuscitation, continue to monitor the patient very closely. Psychiatry consultation appreciated. 4. Near syncope rule out cardiac arrhythmias. Status post CT scan of the cervical spine as well as x-rays of the right ribs as well as right shoulder no evidence of fracture continue current treatment plan. 5. Chronic alcohol use and dependence. Patient will need to be counseled about alcoholism consider psych evaluation again. 6. Macrocytosis with alcoholic induced hepatitis. Continue with folic acid 1 mg once every day, continue with thiamine 100 mg once every day, monitor the patient's symptoms very closely. 7. Hypertension and hypertensive cardiovascular disease. Continue patient on metoprolol ER 50 mg at bedtime, amlodipine 5 milligrams orally once every day, monitor the patient blood pressure very closely. 8. Coronary artery disease status post PCI of the LAD 2013. Continue patient on metoprolol ER 50 mg once every day, continue aspirin 325 mg once every day, continue atorvastatin 80 mg once every day. 9. Mixed hyperlipidemia. Continue patient on atorvastatin 80 mg once every day. 10. Enlarged prostate. Continue patient on Flomax 0.4 mg once every day as well as finasteride 5 mg orally once every day for 11. Major depressive disorder. Continue patient on sertraline 25 mg orally once every day. 12. Left heart catheterization today.. Objective - Vital Signs Vital signs: Vital Signs Temp 97.9 F 02/02/25 04:46 Pulse 69 02/02/25 04:46 Resp 16 02/02/25 04:46 BP 149/89 02/02/25 04:46 Pulse Ox 95 02/02/25 04:46 FiO2 Intake & Output 02/01/25 02/02/25 02/02/25 18:59 06:59 18:59 Intake Total 68.292 125.450 Output Total 300 Balance 68.292 -174.550 Weight 67.132 kg 106 kg Intake: Intake, IV Titration 68.292 125.450 Amount Heparin Sod,Pork in 0.45% 68.292 125.450 NaCl 25,000 unit In 0.45 % NaCl 1 250ml.bag @ 12 UNITS/KG/HR 8.056 mls/hr IV .Q24H [facility] Rx#: [id number] Output: Urine 300 Other: Voiding Method Toilet Toilet # Voids 1 - Labs CBC & Chem 7: 02/02/25 02:09 02/02/25 02:09 Labs: Abnormal Lab Results - Last 24 Hours (Table) 02/01/25 02/01/25 02/01/25 Range/Units 04:12 11:38 12:30 RBC (4.30-5.90) m/uL Hgb (13.0-17.5) gm/dL Hct (39.0-53.0) % MCV (80.0-100.0) fL Plt Count (150-450) k/uL APTT 35.6 H (22.0-30.0) sec Sodium 133 L (137-145) mmol/L BUN 34 H (9-20) mg/dL Creatinine 1.32 H (0.66-1.25) mg/dL Calcium 8.3 L (8.4-10.2) mg/dL Total Protein (6.3-8.2) g/dL Albumin (3.5-5.0) g/dL HDL Cholesterol 72.80 H (40.00-60.00) mg/dL 02/01/25 02/02/25 02/02/25 Range/Units 18:54 02:09 02:09 RBC 3.47 L (4.30-5.90) m/uL Hgb 11.9 L (13.0-17.5) gm/dL Hct 34.9 L (39.0-53.0) % MCV 100.7 H (80.0-100.0) fL Plt Count 141 L (150-450) k/uL APTT 36.1 H (22.0-30.0) sec Sodium 132 L (137-145) mmol/L BUN 26 H (9-20) mg/dL Creatinine (0.66-1.25) mg/dL Calcium (8.4-10.2) mg/dL Total Protein 5.8 L (6.3-8.2) g/dL Albumin 3.1 L (3.5-5.0) g/dL HDL Cholesterol (40.00-60.00) mg/dL 02/02/25 Range/Units 02:09 RBC (4.30-5.90) m/uL Hgb (13.0-17.5) gm/dL Hct (39.0-53.0) % MCV (80.0-100.0) fL Plt Count (150-450) k/uL APTT 42.6 H (22.0-30.0) sec Sodium (137-145) mmol/L BUN (9-20) mg/dL Creatinine (0.66-1.25) mg/dL Calcium (8.4-10.2) mg/dL Total Protein (6.3-8.2) g/dL Albumin (3.5-5.0) g/dL HDL Cholesterol (40.00-60.00) mg/dL
--- NOTE | 2025-02-03 07:38 | P.PN ---
Subjective Progress Note Date: 02/03/25 This is a 69-year-old gentleman who is known to our service from before with a past medical history significant for CAD with prior stenting of the LAD and known intermediate disease involving the LCx with a preserved LV systolic function as well as hypertension and dyslipidemia noncompliance and history of alcohol use. The patient presented to the hospital complaining of near syncope. No other cardiovascular symptoms of any pain in the chest or shortness of breath or any dizziness or lightheadedness or any feeling of heart racing or fluttering. He was drinking alcohol but he stopped drinking 4 days ago. He underwent further evaluation including an EKG showing sinus mechanism with T wave inversion laterally and RBBB and the troponin came to be abnormal and consistent with acute coronary syndrome. Currently he is asymptomatic. Renal function is abnormal and he is in acute on chronic renal failure. He is on lisinopril which we are going to hold. Beside that he is on aspirin and statin and anti-ischemic medications and beta-trinh. The physical examination is remarkable for regular rhythm with a soft systolic murmur at the right upper sternal border with clear beating sounds bilaterally and no edema was noted February 02, 2025 The patient was seen and evaluated this morning and he is asymptomatic and hemodynamically stable. He underwent an echo which revealed mildly impaired LV function with EF around 45% to 50%. The plan is to pursue with a heart catheterization today. The physical examination is remarkable for regular rhythm with a soft systolic murmur and clear breathing sounds bilaterally and no edema was noted February 03, 2025 The patient was seen and evaluated this morning. He underwent a heart catheterization yesterday showed no evidence of obstructive CAD. The echo showed impaired LV function with EF between 45 to 50%. Beside that the echo showed severely dilated RV with mild pulmonary hypertension. With that ongoing to rule out PE by obtaining D-dimer. He is asymptomatic. The pressure is slightly elevated and consistent with stage II hypertension with the physical examination is remarkable for regular rhythm with a systolic murmur at right upper sternal border with clear breathing sounds bilaterally and no edema was noted Assessment Acute coronary syndrome Cardiomyopathy Hypertension Dyslipidemia Dilated right ventricle Plan Continue the current medical regimen Add losartan to the current medical regimen Obtain D-dimer to rule out a PE Further recommendation to follow Possible discharge in next 24 hours Objective - Vital Signs Vital signs: Vital Signs Temp 98.3 F 02/03/25 03:41 Pulse 67 02/03/25 03:41 Resp 18 02/03/25 03:41 BP 143/83 02/03/25 03:41 Pulse Ox 96 02/03/25 03:41 FiO2 Intake & Output 02/02/25 02/03/25 02/03/25 18:59 06:59 18:59 Intake Total 743 Output Total 125 Balance 618 Weight 106.2 kg Intake: IV 100 Intake, IV Titration 643 Amount Sodium Chloride 0.9% 1, 643 000 ml @ 75 mls/hr IV . [id number] [facility] Rx#:[id number] Output: Urine 125 Other: Voiding Method Toilet # Voids 2 2 - Labs CBC & Chem 7: 02/02/25 02:09 02/02/25 02:09
[2025-02-03 08:20] LABS: Basophils % (A) 0 %; Eosinophils # (A) 0.2 k/uL (0-0.7); Eosinophils % (A) 2 %; HCT 35.8 % (39.0-53.0); HGB 11.9 gm/dL (13.0-17.5); Lymphocytes # (A) 1.7 k/uL (1.0-4.8); Lymphocytes % (A) 22 %; MCH 33.7 pg (25.0-35.0); MCHC 33.1 g/dL (31.0-37.0); MCV 101.9 fL (80.0-100.0); Macrocytosis Slight; Mean Platelet Volume 8.4; Monocytes # (A) 0.7 k/uL (0-1.0); Monocytes % (A) 8 %; Neutrophils # (A) 4.9 k/uL (1.3-7.7); Neutrophils % (A) 64 %; Platelet Count 145 k/uL (150-450); RBC 3.51 m/uL (4.30-5.90); RDW 13.1 % (11.5-15.5); WBC 7.7 k/uL (3.8-10.6)
[2025-02-03] MEDS: CLOPIDOGREL 75 MG TAB PO SCH (08:21)
[2025-02-03] MEDS: LOSARTAN 25 MG TAB PO SCH (08:21)
[2025-02-03 08:45] LABS: ALT 16 U/L (4-49); AST 35 U/L (17-59); African American GFR (CKD) >90 (>60 ml/min/1.73 sqM); Albumin 3.2 g/dL (3.5-5.0); Alkaline Phosphatase 66 U/L (38-126); Anion Gap 6 mmol/L; Blood Urea Nitrogen 17 mg/dL (9-20); Calcium 8.7 mg/dL (8.4-10.2); Carbon Dioxide 24 mmol/L (22-30); Chloride 104 mmol/L (98-107); Glucose 87 mg/dL (74-99); Non-African American GFR(CKD) 82 (>60 ml/min/1.73 sqM); Potassium 4.1 mmol/L (3.5-5.1); Sodium 134 mmol/L (137-145); Total Bilirubin 0.8 mg/dL (0.2-1.3)
[2025-02-03 08:50] VITALS: RESP 20
--- NOTE | 2025-02-03 09:55 | P.PN ---
Subjective Progress Note Date: 02/03/25 HISTORY OF PRESENT ILLNESS: This is a 69-year-old male with a previous medical history significant for hy pertension and hypertensive cardiovascular disease, hyperlipidemia, history of enlarged prostate, GERD with esophagitis, history of coronary artery disease status post percutaneous coronary intervention currently under cardiology care, history of enlarged prostate, detrusor instability, osteoporosis, chronic alcohol use and dependence. Patient has not been seen in the office for almost 2 years last time was seen in the hospital after he was admitted for what appears to be an alcohol intoxication with impending delirium tremens, and he was discharged home at that time, was supposed to follow-up with me as an outpatient, patient apparently presented to the emergency department at [facility] yesterday with generalized weakness and feeling shaky apparently had stopped drinking alcohol 3 days ago, he had fallen and had a near syncopal episode, he stated that he injured his right shoulder, and neck, patient did have a battery of testing the emergency department including CT scan of the cervical spine that did not show evidence of acute abnormalities, he also did have a right shoulder x-ray did not show evidence of acute abnormalities, he did have evidence of degenerative disc disease of the cervical spine without fracture, his x-rays of the ribs showed possible minimally displaced lower rib fracture, patient also was found to have an elevated troponin of 0.2, repeated troponin was positive at 1.3 and the last 1 was 1.7 patient is ruled in for non- ST elevation myocardial infarction, he was admitted to the hospital for evaluation by cardiology further recommendations to follow 02/02: Patient sitting up in bed in no apparent distress, he denies any chest pain at this time, he has no shortness of breath, he was seen yesterday in consultation by cardiology recommended to go for left heart catheterization today., he denies any abdominal pain, nausea vomiting or diarrhea, he was seen already in consultation by psychiatry, recommended continue current treatment plan, we will follow-up with the patient very closely. 02/03: Patient underwent left heart catheterization of the study that was done by Dr. Milligan that showed evidence of patent stent to the RCA, with minimal disease that was none flow-limiting based on Doppler wire, also patent stent to the LAD, with mild disease of the diagonal branch was recommended for dual antiplatelet therapy, patient D-dimer was elevated, cardiology recommended for the patient to go for CT angiography of the chest rule out any pulm embolism, if the test is negative patient can be discharged home and follow-up with us as an outpatient REVIEW OF SYSTEMS: Constitutional: No documented fever, no chills, no night sweats. No weight change. positive for weakness, fatigue or lethargy. No daytime sleepiness. HEENT: No headache. No blurred vision or double vision, no loss of vision. No loss of Hearing, no ringing in the ears, no dizziness. No nasal drainage or congestion. No epistaxis. No sore throat. Lungs: No shortness of breath, no cough, no sputum production. No wheezing. Reports dyspnea with activity. Cardiovascular: No chest pain, no lower extremity edema. No palpitations. No paroxysmal nocturnal dyspnea. No orthopnea. No lightheadedness or dizziness. No syncopal episodes. Abdominal: Reports abdominal pain. positive for nausea, no vomiting. No diarrhea. No constipation. No bloody or tarry stools reports loss of appetite. Genitourinary: No dysuria, increased frequency, urgency. No urinary retention. Musculoskeletal: No myalgias. Positive muscle weakness, no gait dysfunction, positive for frequent falls. Positive for back pain. Positive for neck pain. Integumentary: No wounds, no lesions. No rash or pruritus. positive for bruising. No change in hair or nails. Neurologic: No aphasia. No facial droop. No change in mentation. No head injury. No headache. No paralysis. No paresthesia. Psychiatric: positive for depression. No anxiety. No mood swings. Endocrine: No abnormal blood sugars. No weight change. PHYSICAL EXAMINATION: General: 69-year-old male laying down in bed in no apparent distress. HEENT: Head is atraumatic, normocephalic, pupils were equal round reactive to light and recommendation, extraocular muscle movement were intact, sclera nonicteric, conjunctivae were pale, mucous membranes of the mouth are somewhat dry. Neck: Supple, no JVP, normal carotid upstroke bilaterally, no lymphadenopathy. Chest: Decreased breath sounds at the bases, few rhonchi, no expiratory wheezes, for right lower chest wall tenderness, no intercostal retractions. Heart: First heart sound is normal, second heart sounds normal there is CHEL 2/6 located at the left sternal border. Abdomen: Soft, nontender, nondistended, positive bowel sounds. Extremities: There is no edema no calf tenderness DP +2 bilaterally. Neurologic examination: Patient is drowzy opens his eyes in response to verbal stimuli cranial nerves II-12 appear grossly intact, muscle power were 5 out of 5 in upper extremities and 5 out of 5 in bilateral lower extremities, deep tendon reflexes normal bilaterally. ASSESSMENT AND PLAN: 1. Non-ST elevation CA patient did have a prior history of CAD post PCI, continue heparin drip for now, continue aspirin 325 mg once every day, continue metoprolol 50 mg at bedtime, continue atorvastatin 80 mg orally once every day status post left heart catheterization that showed patent stent of the RCA and patent stent in the LAD with minimal disease involving the diagonal branch, nonflow limiting disease by wire Doppler of the RCA. Patient had D-dimer ordered by cardiology to rule out pulmonary embolism patient has been on heparin drip since yesterday 2. Acute kidney injury due to acute tubular necrosis and vasomotor nephropathy. Appears to be back to baseline. 3. Chronic alcohol use and dependence with impending alcohol withdrawal/DT. S tart the patient on a CIWA protocol, monitor the patient very closely, continue patient on thiamine, continue patient on IV fluid resuscitation, continue to monitor the patient very closely. Psychiatry consultation appreciated. 4. Near syncope rule out cardiac arrhythmias. Status post CT scan of the cervical spine as well as x-rays of the right ribs as well as right shoulder no evidence of fracture continue current treatment plan. 5. Chronic alcohol use and dependence. continue with counseling, continue sertraline 50 mg once every day, continue patient on naltrexone 50 mg orally once every day as well as 6. Macrocytosis with alcoholic induced hepatitis. Continue with folic acid 1 mg once every day, continue with thiamine 100 mg once every day, monitor the patient's symptoms very closely. 7. Hypertension and hypertensive cardiovascular disease. Continue patient on metoprolol ER 50 mg at bedtime, amlodipine 5 mg once every day, add a small dose of losartan 25 mg orally once every day, monitor the patient blood pressure very closely. 8. Coronary artery disease status post PCI of the LAD 2013 status post left heart catheterization that showed patent stent of the LAD and RCA.. Continue patient on metoprolol ER 50 mg once every day, continue aspirin 325 mg once every day, continue atorvastatin 80 mg once every day. 9. Mixed hyperlipidemia. Continue patient on atorvastatin 80 mg once every day. Keep LDL cholesterol less than 50 10. Enlarged prostate. Continue patient on Flomax 0.4 mg once every day as well as finasteride 5 mg orally once every day for 11. Major depressive disorder. Continue patient on sertraline 50 mg orally once every day. 12. elevated D-dimer likely due to non-ST elevation CA. Doubt PE CT angiography was obtained if the CT is negative patient can be discharged home and follow-up with me as an outpatient Objective - Vital Signs Vital signs: Vital Signs Temp 97.6 F 02/03/25 08:00 Pulse 60 02/03/25 08:00 Resp 20 02/03/25 08:00 BP 160/76 02/03/25 08:00 Pulse Ox 98 02/03/25 08:00 FiO2 Intake & Output 02/02/25 02/03/25 02/03/25 18:59 06:59 18:59 Intake Total 743 Output Total 125 Balance 618 Weight 106.2 kg Intake: IV 100 Intake, IV Titration 643 Amount Sodium Chloride 0.9% 1, 643 000 ml @ 75 mls/hr IV . [id number] [facility] Rx#:[id number] Output: Urine 125 Other: Voiding Method Toilet # Voids 2 2 - Labs CBC & Chem 7: 02/03/25 07:38 02/03/25 07:38 Labs: Abnormal Lab Results - Last 24 Hours (Table) 02/03/25 02/03/25 02/03/25 Range/Units 07:38 07:38 07:38 RBC 3.51 L (4.30-5.90) m/uL Hgb 11.9 L (13.0-17.5) gm/dL Hct 35.8 L (39.0-53.0) % MCV 101.9 H (80.0-100.0) fL Plt Count 145 L (150-450) k/uL D-Dimer 2.20 H (<0.60) mg/L FEU Sodium 134 L (137-145) mmol/L Total Protein 6.0 L (6.3-8.2) g/dL Albumin 3.2 L (3.5-5.0) g/dL
--- NOTE | 2025-02-03 10:25 | CT ---
EXAMINATION TYPE: CT angio chest DATE OF EXAM: 02/03/2025 COMPARISON: Chest CT 2017 CLINICAL INDICATION: Male, 69 years old with history of PE, Suspected PE., TECHNIQUE: CTA scan of the thorax is performed with IV Contrast, patient injected with 100 ml mL of Isovue 370, pulmonary embolism protocol. MIP Images are created on CT scanner and reviewed. CT DLP: 518.5 mGycm. Automated Exposure Control for Dose Reduction was Utilized. FINDINGS: LUNGS: Evaluation suboptimal as there is respiratory motion compromise. This limits evaluation partic ularly for subcentimeter nodules. There is mild left basilar linear scarring and/or atelectasis redem onstrated. Right lung is predominantly clear. No pleural effusion or pneumothorax seen bilaterally. D ependent atelectasis in both bases is seen. HEART: There is cardiomegaly with severe coronary artery calcification MEDIASTINUM: Suboptimal study with most dense contrast in the SVC. No central acute pulmonary embolis m. Cannot entirely exclude peripheral acute pulmonary embolism. Prominent right and left pulmonary ar teries is suggestive of underlying pulmonary hypertension. There is enhancement of the aorta without aneurysm or dissection. There are no greater than 1 cm hilar or mediastinal lymph nodes. No perica rdial effusion is seen. Small to moderate-sized hiatal hernia is now present. OTHER: A few simple-appearing thin-walled cysts in both kidneys are partially imaged. IMPRESSION: 1. Suboptimal study without acute central pulmonary embolism. Cannot entirely exclude acute periphera l pulmonary embolism on this exam. 2. Cardiomegaly without suspicious acute pulmonary process. [facility], , 02/03/2025 10:23 AM
[2025-02-03 11:15] VITALS: BP 158/63; PULSE 82; TEMP 98.5
--- NOTE | 2025-02-03 13:19 | P.DS ---
Providers Date of admission: 02/01/25 00:23 Expected date of discharge: 02/03/25 Attending physician: Chay Claire Consults: 01/31/25 23:32 Consult Physician Routine Consulting Provider: Jayson Lopez Consult Reason/Comments: elevated troponin Do you want consulting provider notified?: Yes 02/01/25 07:21 Consult Physician Routine Consulting Provider: Psychiatry - [facility] Psychiatry Consult Reason/Comments: Depression/Alcohol dependence Do you want consulting provider notified?: Yes Primary care physician: Chay Claire Hospital Course: HISTORY OF PRESENT ILLNESS: This is a 69-year-old male with a previous medical history significant for hypertension and hypertensive cardiovascular disease, hyperlipidemia, history of enlarged prostate, GERD with esophagitis, history of coronary artery disease status post percutaneous coronary intervention currently under cardiology care, history of enlarged prostate, detrusor instability, osteoporosis, chronic alcohol use and dependence. Patient has not been seen in the office for almost 2 years last time was seen in the hospital after he was admitted for what appears to be an alcohol intoxication with impending delirium tremens, and he was discharged home at that time, was supposed to follow-up with me as an outpatient, patient apparently presented to the emergency department at [facility] yesterday with generalized weakness and feeling shaky apparently had stopped drinking alcohol 3 days ago, he had fallen and had a near syncopal episode, he stated that he injured his right shoulder, and neck, patient did have a battery of testing the emergency department including CT scan of the cervical spine that did not show evidence of acute abnormalities, he also did have a right shoulder x-ray did not show evidence of acute abnormalities, he did have evidence of degenerative disc disease of the cervical spine without fracture, his x-rays of the ribs showed possible minimally displaced lower rib fracture, patient also was found to have an elevated troponin of 0.2, repeated troponin was positive at 1.3 and the last 1 was 1.7 patient is ruled in for non- ST elevation myocardial infarction, he was admitted to the hospital for evaluation by cardiology further recommendations to follow 02/02: Patient sitting up in bed in no apparent distress, he denies any chest pain at this time, he has no shortness of breath, he was seen yesterday in consultation by cardiology recommended to go for left heart catheterization today., he denies any abdominal pain, nausea vomiting or diarrhea, he was seen already in consultation by psychiatry, recommended continue current treatment plan, we will follow-up with the patient very closely. 02/03: Patient underwent left heart catheterization of the study that was done by Dr. Milligan that showed evidence of patent stent to the RCA, with minimal disease that was none flow-limiting based on Doppler wire, also patent stent to the LAD, with mild disease of the diagonal branch was recommended for dual antiplatelet therapy, patient D-dimer was elevated, cardiology recommended for the patient to go for CT angiography of the chest rule out any pulm embolism, if the test is negative patient can be discharged home and follow-up with us as an outpatient Discharge diagnoses: 1. Non-ST elevation AK status post left heart catheterization that showed patent stent for the RCA and LAD with mild disease of the diagonal branch no intervention 2. Acute kidney injury due to acute tubular necrosis and vasomotor nephropathy. 3. Chronic alcohol use and dependence with impending alcohol withdrawal/DT. 4. Near syncope rule out cardiac arrhythmias. 5. Chronic alcohol use and dependence. 6. Macrocytosis with alcoholic induced hepatitis. 7. Hypertension and hypertensive cardiovascular disease. 8. Coronary artery disease status post PCI of the LAD 2014 status post left heart catheterization that showed patent stent of the LAD and RCA.. 9. Mixed hyperlipidemia. 10. Enlarged prostate. 11. Major depressive disorder. 12. Elevated D-dimer likely due to non-ST elevation AK CT angiography is negative. Patient Condition at Discharge: Serious Plan - Discharge Summary Discharge Rx Participant: No New Discharge Prescriptions: No Action Aspirin 325 mg PO DAILY Metoprolol Tartrate [Lopressor] 50 mg PO HS Pantoprazole [Protonix] 40 mg PO HS Potassium Chloride ER [K-Dur 10] 10 meq PO DAILY Folic Acid 1 mg PO DAILY tab Naltrexone HCl 50 mg PO DAILY #30 tab lisinopriL [Zestril] 5 mg PO DAILY Multivitamins, Thera [Multivitamin (formulary)] 1 tab PO DAILY Sertraline [Zoloft] 50 mg PO DAILY Atorvastatin [Lipitor] 80 mg PO DAILY Dutasteride [Avodart] 0.5 mg PO HS Solifenacin Succinate [Vesicare] 10 mg PO HS Tamsulosin HCl [Flomax] 0.4 mg PO BID traZODone HCL [Desyrel] 50 mg PO HS Vitamin B Complex 1 cap PO DAILY Discharge Medication List Aspirin 325 mg PO DAILY 07/31/16 [History] Metoprolol Tartrate [Lopressor] 50 mg PO HS 09/05/16 [History] Atorvastatin [Lipitor] 80 mg PO DAILY 01/31/22 [History] Dutasteride [Avodart] 0.5 mg PO HS 01/31/22 [History] Solifenacin Succinate [Vesicare] 10 mg PO HS 01/31/22 [History] Tamsulosin HCl [Flomax] 0.4 mg PO BID 01/31/22 [History] Pantoprazole [Protonix] 40 mg PO HS 07/06/23 [History] Potassium Chloride ER [K-Dur 10] 10 meq PO DAILY 07/06/23 [History] Folic Acid 1 mg PO DAILY tab 07/08/23 [Rx] Naltrexone HCl 50 mg PO DAILY #30 tab 08/12/23 [Rx] Multivitamins, Thera [Multivitamin (formulary)] 1 tab PO DAILY 02/01/25 [History] Sertraline [Zoloft] 50 mg PO DAILY 02/01/25 [History] Vitamin B Complex 1 cap PO DAILY 02/01/25 [History] lisinopriL [Zestril] 5 mg PO DAILY 02/01/25 [History] traZODone HCL [Desyrel] 50 mg PO HS 02/01/25 [History] Follow up Appointment(s)/Referral(s): Chay Claire MD [Primary Care Provider] - 1-2 days Discharge/Stand Alone Forms: AA Meetings [place], Outpatient Counseling, In Substance Abuse Facilities
--- NOTE | 2025-02-08 12:19 | CDI ---
Documentation Clarification Form Date: 02/08/2025 12:05:16 PM From: Davina Pandya Admit Date: 02/01/2025 12:23:00 AM Patient Name: Hayden Ruth Visit Number: [id number] Discharge Date: 02/03/2025 02:56:00 PM ATTENTION: The Clinical Documentation Specialists (CDI) and [facility] Coding Staff appreciate your assistance in clarifying documentation. Please respond to the clarification below the line at the bottom and electronically sign. The CDI & [facility] Coding staff will review the response and follow-up if needed. Please note: Queries are made part of the Legal Health Record. If you have any questions, please contact the author of this message via ITS. Doctor/Provider: Chay Claire NSTEMI is documented by cardiology and in DCS. Per cardiac cath report "No obstructive CAD found and no intervention was required. Additional clarification regarding the type of W[place] is requested. History/Risk Factors: CAD with prior stenting Acute and chronic renal failure. Clinical Indicators: Troponin: 1.380, 1.220 EKG Results: Consider Inferior or lateral ischemia. RBBB Treatment: Heparin, Nitro, Aspiriin Please clarify the type of W[place], if known: [ ] STEMI (type 1) [ x ] NSTEMI (type 1) [ ] Type II W[place] due to (please specify etiology) [ ] Unable to determine [ ] Other Condition, please specify MTDD
== END 2025-02-03 14:56 | disposition home health service (06) | DRG 280 ==
LOC: EC 19:58 → 3SCARD 02-01 00:23
PROVIDERS: ADMIT Internal Medicine; ATTEND Internal Medicine
PROC: B2111ZZ Fluoroscopy of Multiple Coronary Arteries using Low Osmolar Contrast (ICD-10-PCS; principal; 2025-02-02 09:00)
PROC: 4A023N7 Measurement of Cardiac Sampling and Pressure, Left Heart, Percutaneous Approach (ICD-10-PCS; principal; 2025-02-02 09:00)
DX: I21.4 Non-ST elevation (NSTEMI) myocardial infarction (principal); N17.0 Acute kidney failure with tubular necrosis; I27.20 Pulmonary hypertension, unspecified; I45.10 Unspecified right bundle-branch block; F10.239 Alcohol dependence with withdrawal, unspecified; K70.10 Alcoholic hepatitis without ascites; I13.10 Hypertensive heart and chronic kidney disease without heart failure, with stage 1 through stage 4 chronic kidney disease, or unspecified chronic kidney disease; F32.9 Major depressive disorder, single episode, unspecified; N18.9 Chronic kidney disease, unspecified; I42.9 Cardiomyopathy, unspecified; M54.9 Dorsalgia, unspecified; K21.00 Gastro-esophageal reflux disease with esophagitis, without bleeding; G89.29 Other chronic pain; I95.9 Hypotension, unspecified; R26.9 Unspecified abnormalities of gait and mobility; I25.10 Atherosclerotic heart disease of native coronary artery without angina pectoris; I25.2 Old myocardial infarction; F40.240 Claustrophobia; D75.89 Other specified diseases of blood and blood-forming organs; E78.2 Mixed hyperlipidemia; M81.0 Age-related osteoporosis without current pathological fracture; N40.0 Benign prostatic hyperplasia without lower urinary tract symptoms; Z91.81 History of falling; Z79.82 Long term (current) use of aspirin; Z79.899 Other long term (current) drug therapy; Z87.442 Personal history of urinary calculi; Z87.891 Personal history of nicotine dependence; Z91.199 Patient's noncompliance with other medical treatment and regimen due to unspecified reason; Z95.5 Presence of coronary angioplasty implant and graft
CPT/HCPCS: 36415; 70450; 71275; 72125; 72170; 80048; 80053; 80061; 80320; 81003; 83735; 84484; 85025; 85379; 85610; 85730; 93005; 93306; 93458; 93799; 96361; 96365; 96366; 96367; 96375; 99285